=== PATIENT | female | born 1990 | race Caucasian/White ===

== ENCOUNTER 2023-03-21 11:29 | Observation (INO) | payer OTHER, SELFPAY ==
[2023-03-21 11:55] VITALS: TEMP 36.3
[2023-03-21 11:59] VITALS: BP 120/68; PULSE 106
[2023-03-21 12:01] VITALS: BP 122/63; PULSE 105
[2023-03-21 12:12] LABS: Appearance Urine Clear (Clear); Bacteria Urine Rare /hpf; Bilirubin Urine Negative (Negative); Blood Urine Negative (Negative); Color Urine Yellow (Yellow); Glucose Urine UA Negative (Negative); Ketones Urine Negative (Negative); Leukocyte Esterase Ur Trace LEU/UL (NEGATIVE); Nitrate Urine Negative (Negative); Non Pathogenic Casts 0-2; Protein Urine Negative (Negative); RBC Urine 0-2 /hpf (0-2); Specific Grav Ur 1.003 (1.001-1.035); Squamous Epithelial Cell Urine Moderate /hpf (Few); Urobilinogen Urine 0.2 mg/dL (<2.0); WBC Urine 0-5 /hpf (0-3)
[2023-03-21 12:15] LABS: Add Urine Microscopic? YES
--- NOTE | 2023-03-23 17:32 | P.PNOB_ITS ---
OB - Triage/Final Diagnosis Visit Information Reason for evaluation: threatened labor Comments/Additional reasons for admission: I have assessed the risk for this patient, Ayesha Sabillon, and determined that she would benefit from observation care. Evaluation Laboratory results: Laboratory Tests 03/21/23 11:55 Urine Color Yellow Urine Appearance Clear Urine pH 7.0 Ur Specific [place] 1.003 Urine Protein Negative Urine Glucose (UA) Negative Urine Ketones Negative Ur Blood (Man) Negative Urine Nitrate Negative Urine Bilirubin Negative Urine Urobilinogen 0.2 Ur Leukocyte Esterase Trace H Urine RBC 0-2 Urine WBC 0-5 Ur Squamous Epith Cells Moderate H Urine Bacteria Rare Urine Casts 0-2
== END 2023-03-21 12:34 | disposition home or self-care (01) ==
PROVIDERS: Admitting Provider Obstetrics & Gynecology; PCP Nurse Practitioner Family; Visit Provider Obstetrics & Gynecology
DX: O47.02 False labor before 37 completed weeks of gestation, second trimester (principal); O26.892 Other specified pregnancy related conditions, second trimester; R10.9 Unspecified abdominal pain; Z3A.19 19 weeks gestation of pregnancy
CPT/HCPCS: 81001; 87086; 87088; G0378; G0379

== ENCOUNTER 2023-05-24 11:06 | Outpatient (RCR) | payer OTHER, SELFPAY ==
[2023-05-24] MEDS: RHO(D) IMMUNE GLOBULIN 300 MCG/2 ML SYRINGE IM (13:40)
== END 2023-07-21 23:59 | disposition home or self-care (01) ==
LOC: ANHLAB 11:06
PROVIDERS: PCP Nurse Practitioner Family; Visit Provider Obstetrics & Gynecology
DX: Z34.90 Encounter for supervision of normal pregnancy, unspecified, unspecified trimester (principal)
CPT/HCPCS: 36415; 82310; 82570; 86900; 86901; 90384; 96372; J2790

== ENCOUNTER 2023-05-24 11:07 | Outpatient (CLI) | payer OTHER, SELFPAY ==
[2023-05-24 12:06] LABS: Basophils Percent Auto 0.2 % (0.2-1.2); Eosinophils Percent Auto 0.4 % (0-4.4); Hematocrit 32.3 % (37.0-47.0); Hemoglobin 9.7 g/dL (12.0-15.0); Immature Granulocyte Absolute 0.04 K/mm3 (0.00-0.031); Immature Granulocyte Percent A 0.4 % (0-0.5); Lymphocytes Absolute Auto 2.29 K/mm3 (0.9-3.2); Lymphocytes Percent Auto 20.6 % (18.3-44.2); Mean Corpuscular Hemoglobin 27.6 pg (26-34); Mean Corpuscular Volume 91.8 fl (80-100); Mean Platelet Volume 10.1 fl (7.4-10.4); Monocytes Absolute Auto 0.6 K/mm3 (0.1-0.6); Monocytes Percent Auto 4.9 % (2.6-8.5); Neutrophils Absolute Auto 8.2 K/mm3 (1.3-6.7); Neutrophils Percent Auto 73.5 % (45.5-73.1); Platelet Count Result 338 k/mm3 (150-375); Red Blood Count 3.52 M/mm3 (4.2-5.4); Red Cell Distribution Width 15.5 % (11.5-14.5); White Blood Count 11.1 K/mm3 (4.5-10.0)
[2023-05-24 12:48] LABS: Iron 51 ug/dL (37-170)
[2023-05-24 12:56] LABS: HIV 1/2 Ab P24 Ag Result Negative (Negative)
[2023-05-24 13:02] LABS: Percent Iron Saturation 10 % (20-50)
[2023-05-24 13:28] LABS: Glucose 1 Hour PP 50gm Dose 145 mg/dL
== END 2023-05-24 11:08 | disposition home or self-care (01) ==
LOC: ANHLAB 11:08
PROVIDERS: PCP Nurse Practitioner Family; Visit Provider Obstetrics & Gynecology
DX: O99.013 Anemia complicating pregnancy, third trimester (principal); Z3A.00 Weeks of gestation of pregnancy not specified
CPT/HCPCS: 36415; 82947; 83540; 83550; 85025; 85461; 86703; 86850; 86900; 86901; 90384; 96372; G0432; J2790

== ENCOUNTER 2023-06-04 08:03 | Outpatient (CLI) | payer OTHER, SELFPAY ==
[2023-06-04 08:59] LABS: Glucose Fasting Gestational 98 mg/dL (>/=95)
[2023-06-04 11:16] LABS: Glucose 1 Hour Gest 141 mg/dL (>/=180)
[2023-06-04 12:20] LABS: Glucose 2 Hour Gest 151 mg/dL (>/= 155)
[2023-06-04 12:43] LABS: Glucose 3 Hour Gest 141 mg/dL (>/=140)
== END 2023-06-04 08:04 | disposition home or self-care (01) ==
PROVIDERS: PCP Nurse Practitioner Family; Visit Provider Obstetrics & Gynecology
DX: R73.09 Other abnormal glucose (principal)
CPT/HCPCS: 36415; 82951; 82952

== ENCOUNTER 2023-07-07 16:31 | Observation (INO) | payer OTHER, SELFPAY ==
--- NOTE | ~2023-07-07 | US_ITS ---
EXAMINATION: US renal BI DATE: 07/07/2023 18:26 INDICATION: Back pain TECHNIQUE: Multiple grayscale and Doppler ultrasound images of the kidneys were obtained. COMPARISON: None. FINDINGS: The right kidney measures 12.8 x 5.8 x 5.9 cm. The left kidney measures 12.5 x 5.6 x 5.3 cm. The kidn eys demonstrate normal parenchymal echogenicity. Mild right caliectasis and pelviectasis. There is no hydronephrosis. The bladder appears grossly normal but is partially obscured by the fetus. Ureteral jets could not be detected. IMPRESSION: Mild right hydronephrosis. Reviewed, dictated and finalized at location K. IMPRESSION: Mild right hydronephrosis.
[2023-07-07 17:04] LABS: Appearance Urine Clear (Clear); Bilirubin Urine Negative (Negative); Blood Urine Negative (Negative); Color Urine Yellow (Yellow); Glucose Urine UA Negative (Negative); Ketones Urine Negative (Negative); Leukocyte Esterase Ur Negative LEU/UL (Negative); Nitrate Urine Negative (Negative); Protein Urine Negative (Negative); Urobilinogen Urine 0.2 mg/dL (<2.0); pH Urine 6.5 (5.0-9.0)
[2023-07-07 17:13] LABS: Add Urine Microscopic? NO
[2023-07-07 17:15] VITALS: BP 124/67; PULSE 105
--- NOTE | 2023-07-08 08:20 | P.PNOB_ITS ---
OB - Triage/Final Diagnosis Visit Information Date of evaluation: 07/07/23 Reason for evaluation: other (flank pain) Comments/Additional reasons for admission: I have assessed the risk for this patient, Ayesha Sabillon, and determined that she would benefit from observation care. Evaluation Laboratory results: Laboratory Tests 07/07/23 16:46 Urine Color Yellow Urine Appearance Clear Urine pH 6.5 Ur Specific [place] 1.010 Urine Protein Negative Urine Glucose (UA) Negative Urine Ketones Negative Ur Blood (Man) Negative Urine Nitrate Negative Urine Bilirubin Negative Urine Urobilinogen 0.2 Leukocyte Esterase Rfl Negative Vital signs: Vital Signs - 24 hr 07/07/23 17:15 Pulse Rate 105 H Blood Pressure 124/67
== END 2023-07-07 19:35 | disposition home or self-care (01) ==
PROVIDERS: Admitting Provider Student in an Organized Health Care Education/Training Program; PCP Nurse Practitioner Family; Visit Provider Student in an Organized Health Care Education/Training Program
DX: O26.893 Other specified pregnancy related conditions, third trimester (principal); R10.9 Unspecified abdominal pain; Z3A.35 35 weeks gestation of pregnancy
CPT/HCPCS: 76775; 81003; G0378; G0379

== ENCOUNTER 2023-07-13 09:31 | Outpatient (RCR) | payer OTHER, SELFPAY | END 2023-09-27 10:52 | disposition home or self-care (01) | LOC: ANHDMC 09:31 | PROVIDERS: PCP Nurse Practitioner Family; Visit Provider Obstetrics & Gynecology | DX: O24.419 Gestational diabetes mellitus in pregnancy, unspecified control (principal); Z71.89 Other specified counseling; Z71.3 Dietary counseling and surveillance | CPT/HCPCS: 97802; G0108 ==

== ENCOUNTER 2023-07-30 08:59 | Outpatient (RCR) | payer OTHER, SELFPAY ==
[2023-06-19 11:07] VITALS: BP 105/57; PULSE 103
[2023-06-25 09:02] VITALS: BP 110/58; PULSE 106
[2023-07-02 09:15] VITALS: BP 122/65; PULSE 108
[2023-07-16 09:05] VITALS: BP 114/66; PULSE 103
[2023-07-23 12:08] VITALS: BP 111/76; PULSE 104
[2023-07-30 09:31] VITALS: BP 113/65; PULSE 101
[2023-07-30 09:46] VITALS: BP 111/68; PULSE 98
[2023-07-30 10:16] VITALS: BP 116/64; PULSE 101
== END 2023-09-17 23:59 | disposition home or self-care (01) ==
LOC: ANHOBOP 08:59
PROVIDERS: PCP Nurse Practitioner Family; Visit Provider Obstetrics & Gynecology
DX: O24.419 Gestational diabetes mellitus in pregnancy, unspecified control (principal); Z3A.32 32 weeks gestation of pregnancy; Z3A.33 33 weeks gestation of pregnancy; Z3A.34 34 weeks gestation of pregnancy; Z3A.36 36 weeks gestation of pregnancy; Z3A.37 37 weeks gestation of pregnancy
CPT/HCPCS: 59025

== ENCOUNTER 2023-08-05 05:23 | Inpatient (IN) | payer OTHER, SELFPAY ==
[2023-08-05] VITALS (54 sets, daily range): BP systolic 111–143; BP diastolic 56–87; PULSE 77–147; RESP 12–32; TEMP 36.8–36.9; O2SAT 97–100; BMI 48.0
[2023-08-05 06:06] LABS: Basophils Percent Auto 0.2 % (0.2-1.2); Eosinophils Absolute Auto 0.1 K/mm3 (0-0.3); Eosinophils Percent Auto 0.5 % (0-4.4); Hematocrit 32.1 % (37.0-47.0); Immature Granulocyte Absolute 0.04 K/mm3 (0.00-0.031); Immature Granulocyte Percent A 0.4 % (0-0.5); Lymphocytes Absolute Auto 3.56 K/mm3 (0.9-3.2); Lymphocytes Percent Auto 32.2 % (18.3-44.2); Mean Corpuscular HGB Conc 31.2 g/dl (32-36); Mean Corpuscular Hemoglobin 27.5 pg (26-34); Mean Corpuscular Volume 88.2 fl (80-100); Mean Platelet Volume 10.9 fl (7.4-10.4); Monocytes Absolute Auto 0.6 K/mm3 (0.1-0.6); Monocytes Percent Auto 5.3 % (2.6-8.5); Neutrophils Absolute Auto 6.8 K/mm3 (1.3-6.7); Neutrophils Percent Auto 61.4 % (45.5-73.1); Nucleated Red Blood Cells Perc 0.2 % (0.0-0.2); Platelet Count Result 310 k/mm3 (150-375); Red Blood Count 3.64 M/mm3 (4.2-5.4); Red Cell Distribution Width 17.2 % (11.5-14.5)
[2023-08-05] MEDS: LACTATED RINGERS 1,000 ML 125 ML IV CONT ×2 (06:26→07:11)
--- NOTE | 2023-08-05 06:30 | LDADM ---
This patient, Ayesha Sabillon, was admitted to Labor/Delivery/Recovery 120 on 08/05/23 at 05:23. Plans for labor, pain management and were discussed with patient. Patient/family oriented to hospital policies and general routines including ID bracelet, bed and alarms, visiting hours, pain management, procedures, bathroom and other care routines, personal items, smoking policy, room service/diet and guest tray routines, infant security routines, and visiting hours. Patient/Family are encouraged to report perceived risks to care and to ask questions if they do not understand what they are told or what they should do. See OBIX for further documentation.
--- NOTE | 2023-08-05 06:57 | WPDANESEPPF ---
Anes - Initial Pre Proc Eval Procedure: Operation Date: 08/05/23 07:30 Proposed Procedures p Section - Maya Staley MD Date/Time: 08/05/23 06:57 Surgeon: Maya Staley MD Pre Op Diagnosis: C/S Patient Data Age: 32 Gender: F Height: 1.6 m Weight: 123 kg Last Vital Signs Pulse 92 08/05/23 06:46 BP 129/82 08/05/23 06:46 O2 Del Method Room Air 08/05/23 06:28 Allergies Allergy/AdvReac Type Severity Reaction Status Date / Time clavulanic acid Allergy Intermediate Rash Verified 08/04/23 08:45 [From Augmentin] Home Medications Medication Instructions Recorded Confirmed Type magnesium glycinate 100 mg tablet 200 mg PO HS 06/25/23 07/21/23 History vit no.95-ferrous 1 tablet PO DAILY 06/25/23 07/21/23 History fumarate 28 mg-folic acid 800 mcg tablet () insulin glargine 100 unit/mL (3 16 unit subcut QAM 07/02/23 07/21/23 History mL) subcutaneous pen (Lantus Solostar U-100 Insulin) hydroxyzine pamoate 25 mg capsule 25 mg PO HS #30 caps 07/12/23 07/21/23 Rx insulin glargine 100 unit/mL (3 24 unit (0.24 mL) subcut QPM #15 mL 07/16/23 07/21/23 Rx mL) subcutaneous pen insulin lispro 100 unit/mL 1 sliding scale dose subcut 07/28/23 History subcutaneous pen USEASDIRECTD Laboratory Tests 08/05/23 05:57 WBC 11.0 H K/mm3 (4.5-10.0) RBC 3.64 L M/mm3 (4.2-5.4) Hgb 10.0 L g/dL (12.0-15.0) Hct 32.1 L % (37.0-47.0) MCV 88.2 fl (80-100) MCH 27.5 pg (26-34) MCHC 31.2 L g/dl (32-36) RDW 17.2 H % (11.5-14.5) Plt Count 310 k/mm3 (150-375) MPV 10.9 H fl (7.4-10.4) Immature Gran % (Auto) 0.4 % (0-0.5) Neut % (Auto) 61.4 % (45.5-73.1) Lymph % (Auto) 32.2 % (18.3-44.2) [place] % (Auto) 5.3 % (2.6-8.5) Eos % (Auto) 0.5 % (0-4.4) Baso % (Auto) 0.2 % (0.2-1.2) Lymph # (Auto) 3.56 H K/mm3 (0.9-3.2) [place] # (Auto) 0.6 K/mm3 (0.1-0.6) Eos # (Auto) 0.1 K/mm3 (0-0.3) Baso # (Auto) 0.0 K/mm3 (0.0-0.1) Abs Immat Gran (auto) 0.04 H K/mm3 (0.00-0.031) Absolute Neuts (auto) 6.8 H K/mm3 (1.3-6.7) Absolute Nucleated RBC 0.0 K/mm3 (0.0-0.012) Nucleated RBC % 0.2 % (0.0-0.2) RPR Pending Blood Type O Negative Antibody Screen Pending Patient hx anesthesia problems: none Family hx anesthesia problems: none Results Review: All pre-operative results and documents have been reviewed as part of the pre-operative evaluation. [facility] Past Medical History Medical History Anxiety and depression Dizziness GERD (gastroesophageal reflux disease) History of miscarriage, currently Insomnia UTI (urinary tract infection) Surgical History Surgical History History of tonsillectomy and adenoidectomy (~1995) Hx of cholecystectomy (~08/2022) Family History Family History Mother Anxiety Cyst of ovary Grandparent Diabetes mellitus paternal grandmother Heart disease paternal grandfather paternal grandmother maternal grandmother maternal grandfather Cerebrovascular accident maternal grandfather Other Diabetes mellitus paternal uncles x3 Social History Social History Smoking status: Never smoker Alcohol intake: never Substance use: never Substance use type: marijuana Last use: 12/10/2022 Lack of Transportation: No Lack of Food: Never True Current Housing: I Have Housing Concerned About Future Housing: No Difficulty Paying Gas/Electric Bills: No Difficulty Paying for Meds: No Currently Unemployed: No Education: Bachelor's Degree Difficulty w/ Childcare or Family Care: No Living arrangements: ot
--- NOTE | 2023-08-05 07:04 | PM.IMHP ---
H&P: HPI History of Present Illness Date/Time: 08/05/23 07:04 Chief Complaint: scheduled primary LTCS Narrative: Ayesha is a 32yo @ 38.6 who presents to L&D for pLTCS due to uncontrolled A2GDM and LGA fetus with AC >99%ile. She is on insulin 20/24 long acting, 4u TID before meals short acting. Her sugars have been uncontrolled the last week with values as high as 200. She has been seeing M and undergoing testing. Her is complicated by: - Obesity; BMI 46 - Rh negative s/p rhogam - Anemia; taking PO iron - A2GDM; uncontrolled on insulin - LGA with AC >99%ile - GBS positive in urine Review of Systems Constitutional: Constitutional: Denies chills, Denies fever(s) and Denies headache(s) Eyes: Eyes: Denies change in vision ENT: Denies headache(s) Cardiovascular: Cardiovascular: Denies chest pain and Denies dyspnea Respiratory: Respiratory: Denies dyspnea Genitourinary: Genitourinary: Denies abnormal vaginal bleeding and Denies vaginal discharge Neurologic: Denies headache(s) Psychiatric: Psychiatric: Denies anxiety and Denies depression PMF Past Medical History Medical History Anxiety and depression Dizziness GERD (gastroesophageal reflux disease) History of miscarriage, currently Insomnia UTI (urinary tract infection) Surgical History Surgical History History of tonsillectomy and adenoidectomy (~1995) Hx of cholecystectomy (~08/2022) Family History Family History Mother Anxiety Cyst of ovary Grandparent Diabetes mellitus paternal grandmother Heart disease paternal grandfather paternal grandmother maternal grandmother maternal grandfather Cerebrovascular accident maternal grandfather Other Diabetes mellitus paternal uncles x3 Social History Social History Smoking status: Never smoker Alcohol intake: never Substance use: never Substance use type: marijuana Last use: 12/10/2022 Lack of Transportation: No Lack of Food: Never True Current Housing: I Have Housing Concerned About Future Housing: No Difficulty Paying Gas/Electric Bills: No Difficulty Paying for Meds: No Currently Unemployed: No Education: Bachelor's Degree Difficulty w/ Childcare or Family Care: No Living arrangements: other Additional living arrangements comments: Occupation/Education: occupation 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 Gender identity (if verbalized by the patient): Female Sexual Orientation (if Verbalized by the Patient): Straight or Heterosexual Spiritual care concerns: No Meds Home Medications and Allergies Home Medications Medication Instructions Recorded Confirmed Type magnesium glycinate 100 mg tablet 200 mg PO HS 06/25/23 07/21/23 History vit no.95-ferrous 1 tablet PO DAILY 06/25/23 07/21/23 History fumarate 28 mg-folic acid 800 mcg tablet () insulin glargine 100 unit/mL (3 16 unit subcut QAM 07/02/23 07/21/23 History mL) subcutaneous pen (Lantus Solostar U-100 Insulin) hydroxyzine pamoate 25 mg capsule 25 mg PO HS #30 caps 07/12/23 07/21/23 Rx insulin glargine 100 unit/mL (3 24 unit (0.24 mL) subcut QPM #15 mL 07/16/23 07/21/23 Rx mL) subcutaneous pen insulin lispro 100 unit/mL 1 sliding scale dose subcut 07/28/23 History subcutaneous pen USEASDIRECTD Allergies Allergy/AdvReac Type Severity Reaction Status Date / Time clavulanic acid Allergy Intermediate Rash Verified 08/04/23 08:45 [From Augmentin] Vital Signs Vital Signs - 24 hr 08/05/23 06:16 08/05/23 06:46 08/05/23 07:01 Pulse Rate 96 92 92 Blood Pressure 120/68 129/82 125/73 Oxygen Delivery
--- NOTE | 2023-08-05 07:14 | WPDHPUPDATE1 ---
History and Physical Update Update Date/Time: 08/05/23 07:14 History and Physical has been reviewed, including an updated exam of the patient. There are NO changes in the patient's condition. Risks, benefits, and alternatives have been discussed and questions answered. Patient agrees to proceed with procedure.
[2023-08-05] MEDS: ceFAZolin 3 GM/D5W 100 ML 100 ML IVPB (07:52)
[2023-08-05 08:35] LABS: Rapid Plasma Reagin Non-Reactive (NonReactive)
--- NOTE | 2023-08-05 08:50 | P.PCNOB_ITS ---
OB - Delivery Note Procedure Delivery date: 08/05/23 Procedure: Procedures Operation Date: 08/05/23 07:30 Actual Procedure Side Surgeon p Section Maya Staley MD Events: Gestational Diabetes (uncontrolled/ LGA fetus) Route of delivery: Prior to decision for section, ACOG/SM labor guidelines were considered and discussed with the patient and staff. Decision made to proceed with the section.: Yes Specimen: Yes (placenta) Quantitative Blood Loss (ml): 850 Anesthesia type: Spinal Disposition: Floor Baby Date of : 08/05/23 Time of : 08:14 Weeks of gestation at delivery: 38 (.6) gender: Female Weight (pounds): 9 Weight (ounces): 7 presentation: vertex Placenta delivery description: Expressed Cord Vessel Description: 3 Vessels and Delayed Cord Clamping score one minute: 8 score five minutes: 9 Narrative: She was counseled on all risks and benefits in detail. She was taken to the operating room where spinal was placed. She was then prepped and draped in the normal sterile fashion. She received 2g Ancef and a time out was performed. A Pfannenstiel incision was made in the skin and carried down to the underlying fascia. The fascia was nicked on either side of the midline and the fascial incision was extended laterally and superiorly using curved Guerra scissors. The fascia was then elevated using Ashly clamps and the underlying rectus muscles were dissected off the fascia, superiorly and inferiorly. The rectus muscles were then in the midline and a large vein from the omentum was noted and doubly tied off with 0-Vicryl stitches. The peritoneum was entered bluntly. Once adequate exposure was obtained, a Mobius self retractor was placed within the abdomen. A bladder flap was created. A low transverse incision was made on the lower uterine segment and clear fluid was noted. The occiput was brought to the hysterotomy and the head was easily delivered. The shoulders and body then followed without complications. The infant had spontaneous cry and the mouth and nose were bulb suctioned. Delayed cord clamping was performed but then was doubly clamped and cut and the was handed off to the awaiting pediatric nurse. A segment of the cord was collected for cord gases. The remaining cord blood was collected for typing. With pitocin infusing, the placenta delivered with gentle traction on the cord without complications. The uterus was then cleared out of all clots and debris using a clean, moist lap. The hysterotomy was then repaired in a running, interlocking fashion using 0 Vicryl. A second layer imbricating suture was then made using 0 Vicryl. The hysterotomy was found to be hemostatic and good uterine tone was noted. The bilateral adnexa were examined and found to be normal. The pelvis was cleared of all clots and fluid. The Mobius retractor was removed from the abdomen. The peritoneum, muscle, and fascia were examined and made hemostatic with bovie cautery. The fascia was then repaired using a 0 Vicryl suture in a running fashion. The subcutaneous tissue was then irrigated and made hemostatic with bovie cautery. The subcutaneous tissue was then reapproximated using 2-0 Vicryl. The skin was then closed using 4-0 Monocryl in a running subcuticular fashion. A Seymour dressing was placed over the incision. Sponge, lap, needle and instrument counts were correct at the end of the procedure x2. The patient tolerated the procedure well and was taken to recovery in a stable condition. [facility] [place]
[2023-08-05] MEDS: OXYTOCIN 30 UNITS/NS 500 ML 30 UNITS/500 ML BAG 125 UNITS IV CONT (09:22)
[2023-08-05] MEDS: ONDANSETRON INJ 4 MG/2 ML VIAL IV PUSH (09:56)
[2023-08-05] MEDS: MORPHINE SULFATE INJ (*CRX) 10 MG/ML AMP 3 MG IV PUSH (10:27)
[2023-08-05] MEDS: KETOROLAC 30 MG/ML VIAL (*BKC) 15 MG IV PUSH (10:29)
[2023-08-05 13:22] LABS: Glucose Point of Care 85 mg/dl (65-105)
--- NOTE | 2023-08-05 13:33 | PC.NURSE ---
[id number] Introductions were made, then consulted with patient to assess needs related to . Mother led the conversation with her?plans to feed?her infant, the?experience so far and states latched well downstairs. Discussed with parents the different wake, sleep and feeding challenges along with inconsistent feedings the first 24 hours. was assessed for sounds with breathing with no nasal flaring. spit up copious amounts of clearing fluid and placed upright on mothers chest. Education was discussed regarding stimulating with changing positioning, massage touch encouraging to wake and breastfeed. RN wiped clearing fluid away from infants mouth and massaged touched and burped again. Encouraged parents to call for assistance when needed. Educated parents on protecting mothers milk supply with hand stimulation/expression/nipple stretching or pumping if infant doesn't breastfeed frequently. Resources provided for inpatient and outpatient services with the feeding sheet, mom/baby guide and name written on the white board. Parents voiced understanding of information, will call if there is a request for assistance if infant shows feeding cues, doesn't latch or there's pain with latching. Reported to the primary RN.
[2023-08-05] MEDS: KETOROLAC 30 MG/ML VIAL (*BKC) IV PUSH ×2 (14:15→21:45)
[2023-08-05] MEDS: DEXTROSE 5%/0.45% SOD CHL 1,000 ML 125 ML IV CONT ×2 (14:15→22:00)
[2023-08-05] MEDS: SCOPOLAMINE 1.5 MG PATCH TRANSDERM (14:15)
--- NOTE | 2023-08-05 15:44 | PC.NURSE ---
[id number] Purposefully rounded to assess for . Visitors remain present in the room. Infant is not showing any feeding cues or interest in waking to eat at this time. Revisited the education regarding protecting her milk supply. Breast pump provided due to ineffective feeding. Instructions given on cleaning, care, usage, that there should be no pain, pumping schedule for milk production, collection, and storage of human milk. Parents are encouraged to record pumping schedule on the feeding sheet. Patient was assessed for correct placement, flange size (27mm), to pump for comfort and nipple stretching/stimulation for adequate milk production every 3 hours (8-10 times in 24 hours) 1-2 times at night. Education regarding the delay in milk related to primary section and PCOS. Mother voiced understanding of the education shared along with mom and baby guide for additional resource information. Reported to the primary RN.
[2023-08-05] MEDS: HYDROcodone/acetaminophen (*CRX) 5-325 MG TABLET 1 TAB PO (21:45)
[2023-08-06 04:35] VITALS: BP 116/68; PULSE 99; RESP 16; TEMP 36.6; O2SAT 99
[2023-08-06 04:54] LABS: Glucose Point of Care 79 mg/dl (65-105)
[2023-08-06] MEDS: IBUPROFEN 600 MG TABLET PO ×3 (05:47→18:34)
[2023-08-06] MEDS: HYDROcodone/acetaminophen (*CRX) 5-325 MG TABLET 1 TAB PO ×4 (05:47→18:34)
[2023-08-06 05:53] LABS: Basophils Percent Auto 0.3 % (0.2-1.2); Eosinophils Percent Auto 0.3 % (0-4.4); Hematocrit 26.2 % (37.0-47.0); Hemoglobin 7.8 g/dL (12.0-15.0); Immature Granulocyte Absolute 0.05 K/mm3 (0.00-0.031); Immature Granulocyte Percent A 0.5 % (0-0.5); Lymphocytes Absolute Auto 2.27 K/mm3 (0.9-3.2); Lymphocytes Percent Auto 20.7 % (18.3-44.2); Mean Corpuscular HGB Conc 29.8 g/dl (32-36); Mean Corpuscular Hemoglobin 27.6 pg (26-34); Mean Corpuscular Volume 92.6 fl (80-100); Mean Platelet Volume 11.3 fl (7.4-10.4); Monocytes Absolute Auto 0.7 K/mm3 (0.1-0.6); Neutrophils Absolute Auto 7.9 K/mm3 (1.3-6.7); Neutrophils Percent Auto 72.2 % (45.5-73.1); Platelet Count Result 254 k/mm3 (150-375); Red Blood Count 2.83 M/mm3 (4.2-5.4); Red Cell Distribution Width 17.3 % (11.5-14.5)
[2023-08-06 06:57] LABS: Platelet Estimate Adequate (Adequate)
[2023-08-06 06:58] LABS: Anisocytosis 1+ (NORMAL); Hypochromasia 1+ (NORMAL); Ovalocytes 1+ (NORMAL); Schistocytes None Seen (NORMAL)
--- NOTE | 2023-08-06 07:31 | WPDANLDPN2 ---
Anes-Prog Note L&D Date/Time: 08/06/23 07:31 Comfortable throughout: section Neuraxial method: spinal Epidural/Spinal procedure site: clean & non-tender Neuro status: Neuro function grossly intact. Cardiovascular status: normal Respiratory status: normal Airway patency: baseline Mental status: baseline Post-Op hydration status: normal Vital Signs: Last Vital Signs Temp 36.6 C 08/06/23 04:35 Pulse 99 08/06/23 04:35 Resp 16 08/06/23 04:35 BP 116/68 08/06/23 04:35 Pulse Ox 99 08/06/23 04:35 O2 Del Method Room Air 08/05/23 19:10 Pain score (VAS): no complaints I/O: Intake & Output 08/05/23 08/05/23 08/06/23 15:59 23:59 07:59 Intake Total 250 2150 400 Output Total 806 080 4636 Balance 37 1550 -800 Post-procedural complaints: none Patient feedback: Patient satisfied with anesthetic care.
--- NOTE | 2023-08-06 07:31 | WPDANLDNPN2 ---
Anes-Prog Note L&D-Neuraxial Date/Time: 08/06/23 07:31 Neuraxial medications: intrathecal PF morphine Opiod-related complaints: none Patient feedback: Patient satisfied with post-operative pain management.
[2023-08-06 07:45] VITALS: BP 111/65; PULSE 86; RESP 18; TEMP 37.2; O2SAT 97
--- NOTE | 2023-08-06 08:56 | PM.OBPNVD ---
OB - PN: Subj Subjective Date/time seen: 08/06/23 08:56 Narrative: POD#1 Ayesha reports doing well today. 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 Her pain is controlled. She is tolerating regular diet, voiding, passing gas, and ambulating without issues. She denies any issues with her incision. She is breast feeding. OB - PN: Obj Data Labs 08/06/23 04:50 Labs: Laboratory Results - last 24 hr 08/05/23 08/06/23 08/06/23 06:02 04:42 04:50 WBC 11.0 H RBC 2.83 L Hgb 7.8 L Hct 26.2 L MCV 92.6 MCH 27.6 MCHC 29.8 L RDW 17.3 H Plt Count 254 MPV 11.3 H Immature Gran % (Auto) 0.5 Neut % (Auto) 72.2 Lymph % (Auto) 20.7 [place] % (Auto) 6.0 Eos % (Auto) 0.3 Baso % (Auto) 0.3 Lymph # (Auto) 2.27 [place] # (Auto) 0.7 H Eos # (Auto) 0.0 Baso # (Auto) 0.0 Abs Immat Gran (auto) 0.05 H Absolute Neuts (auto) 7.9 H Absolute Nucleated RBC 0.0 Nucleated RBC % 0.0 Platelet Estimate Adequate Hypochromasia 1+ Anisocytosis 1+ Ovalocytes 1+ Schistocytes None seen POC Capillary Glucose 85 79 Blood Type O Negative Antibody Screen Negative Baby's Blood Type O pos Baby's JESSI Negative Doses of RhIg Required 1 OB - PN A/P Assessment and Plan (1) S/P primary low transverse : Code(s): Z98.891 - History of uterine scar from previous surgery Status: Acute (2) Gestational diabetes requiring insulin: Code(s): O24.414 - Gestational diabetes mellitus in , insulin controlled Status: Acute (3) LGA (large for gestational age) fetus affecting management of mother: Qualifiers: Fetus number: single or unspecified fetus Trimester: third trimester Qualified Code(s): O36.63X0 - Maternal care for excessive growth, third trimester, not applicable or unspecified Code(s): O36.60X0 - Maternal care for excessive growth, unspecified trimester, not applicable or unspecified Status: Acute Plan day: 1 Plan: routine care Comments: - pain control - hydration/ambulation - keep pumping/putting baby to breast Time Spent With Patient Time: Total time spent is greater than 50% in coordination of care (as documented) at patient's floor/unit and/or counseling patient: Review of Systems Constitutional: Constitutional: Denies chills, Denies fever(s) and Denies headache(s) Eyes: Eyes: Denies change in vision ENT: Denies dizziness and Denies headache(s) Cardiovascular: Cardiovascular: Denies chest pain, Denies palpitations and Denies dyspnea Respiratory: Respiratory: Denies cough and Denies dyspnea Gastrointestinal: Gastrointestinal: Denies nausea and Denies vomiting Genitourinary: Comments: normal bleeding Neurologic: Denies dizziness and Denies headache(s) Endocrine: Endocrine: Denies palpitations Exam Const: General: cooperative, comfortable, no acute distress and obese Orientation/consciousness: patient oriented x3 Resp: Effort & Inspection: normal respiratory effort Auscultation: clear to auscultation bilaterally Cardio: Rate: regular rate GI: Inspection: non-distended and incision (covered with clean TORY dressing) GI Palp: Yes abdominal tenderness (appropriate) and Yes Soft to palpation Auscultation: normal bowel sounds : Other: fundus firm Skin: General skin exam: normal color Neuro: General: patient oriented x3 Extrem: General: normal to inspection Psych: Appearance: grossly normal Affect: normal affect Attitude: cooperative
[2023-08-06] MEDS: MULTIVIT/MIN/PREN/FOL AC/IRON TABLET 1 TAB PO (09:35)
[2023-08-06] MEDS: POLYSACCHARIDE IRON COMPLEX 150 MG CAPSULE PO ×2 (09:35)
[2023-08-06] MEDS: DOCUSATE SODIUM 100 MG CAPSULE PO ×2 (09:35→17:19)
[2023-08-06] MEDS: IRON SUCROSE COMPLEX 500 MG in SODIUM CHLORIDE 0.9% IV 250 ML 78.57 MG IVPB (11:10)
[2023-08-06] MEDS: SODIUM CHLORIDE 0.9% IV 100 ML 50 ML (13:30)
--- NOTE | 2023-08-06 14:20 | PC.NURSE ---
[id number] Purposefully rounded to assess needs. Mother led the conversation with her experience, plan to feed her so far and her ability feed her . Reminded parents to use good handwashing technique to prevent infection. Mother is feeding appropriately for growth of infant and understands stimulating to eat if needed. has had appropriate feedings in the last 24 hours meets the outcomes for weight, output and jaundice at this time. Mother plans to pump her breast to protect her milk supply and formula supplement since is not latching. Mother is satisfied with that plan at this time. Mother voiced understanding of the education shared along with resources of how to contact for support or contacting the ICP using the mom/baby guide.
[2023-08-06] MEDS: RHO(D) IMMUNE GLOBULIN 300 MCG/2 ML SYRINGE IM (16:20)
[2023-08-06 16:30] VITALS: BP 114/68; PULSE 74; PULSE 86; RESP 16; RESP 18; TEMP 37.1; O2SAT 97
[2023-08-06 19:20] VITALS: BP 135/80; PULSE 95; RESP 18; TEMP 37.1; O2SAT 98
[2023-08-06] MEDS: HYDROcodone/acetaminophen (*CRX) 10-325 MG TABLET 1 TAB PO (23:43)
[2023-08-07] MEDS: HYDROcodone/acetaminophen (*CRX) 5-325 MG TABLET 1 TAB PO ×3 (05:23→14:03)
[2023-08-07] MEDS: IBUPROFEN 600 MG TABLET PO ×2 (05:24→14:02)
--- NOTE | 2023-08-07 07:23 | PM.OBDSVD ---
DS: Admitting Diagnosis Discharge Date 08/07/2023 Admitting Diagnosis DS: Discharge Diagnosis Discharge Diagnosis (1) , delivered: Code(s): O80 - Encounter for full-term uncomplicated delivery Status: Acute (2) S/P primary low transverse : Code(s): Z98.891 - History of uterine scar from previous surgery Status: Acute OB - DS: Summary OB Procedures : None OB Procedures Intrapartum: OB Procedures: : None Peripartum Data Procedures: Procedures Operation Date: 08/05/23 07:30 Actual Procedure Side Surgeon p Section Bilateral Maya Staley MD Time Spent with Patient Time attestation: Total time spent providing and/or coordinating discharge services: DS: Data Data Completed and Pending Pending studies at discharge: Pending at discharge 08/05/23 08:15 Surgical [PTH] Routine Labs on day of discharge: Labs from last 24 hours 08/06/23 04:50 Blood Type O Negative Antibody Screen Negative Screen Negative Baby's Blood Type O pos Baby's JESSI Negative Doses of RhIg Required 1 Discharge Plan Discharge Attending physician on discharge: Maya Staley Discharging Clinician: Alon Pearson Patient Disposition: Home, Self-Care Activity: no driving, may drive after 2 weeks and pelvic rest Diet: regular Wound Care Instructions: follow printed instructions Patient Instructions: (DC) Stand Alone Forms: General Discharge Information Follow-up/Referrals: Maya Staley MD [Physician] - 1 Week Discharge Medications: New acetaminophen [Mapap (acetaminophen)] 325 mg Tablet 650 mg PO Q6H PRN (Reason: Mild Pain (1-3)) Qty: 60 0RF hydrocodone-acetaminophen 5-325 mg Tablet 1 tablet PO Q3H PRN (Reason: Moderate Pain (4-6)) Qty: 24 0RF docusate sodium 100 mg Capsule 100 mg PO BID Qty: 120 0RF ibuprofen 600 mg Tablet 600 mg PO Q6H PRN (Reason: Cramping) Qty: 40 0RF polysaccharide iron complex 150 mg iron Capsule 150 mg PO BIDWM Qty: 120 0RF Continued magnesium glycinate 100 mg Tablet 200 mg PO HS PNV cmb#95-ferrous fumarate-FA [] 28 mg iron- 800 mcg Tablet 1 tablet PO DAILY hydroxyzine pamoate 25 mg capsule 25 mg PO HS Qty: 30 0RF Rx Instructions: TAKE 1 CAPSULE BY MOUTH EVERY DAY AT BEDTIME Discontinued insulin lispro 100 unit/mL insulin pen 1 sliding scale dose subcut USEASDIRECTD insulin glargine [Lantus Solostar U-100 Insulin] 100 unit/mL (3 mL) insulin pen 16 unit subcut QAM insulin glargine 100 unit/mL (3 mL) insulin pen 24 unit subcut QPM Qty: 15 3RF Date of admission: 08/05/23 05:23 Primary Care Provider: Jabari,Kim Horn Admitting Provider: Maya Staley Attending physician on admission: Maya Staley Condition: Stable
[2023-08-07] MEDS: SIMETHICONE 80 MG TAB.CHEW PO ×2 (08:39→14:02)
[2023-08-07 08:40] VITALS: BP 136/72; PULSE 102; RESP 16; TEMP 36.8; O2SAT 98
[2023-08-07] MEDS: DOCUSATE SODIUM 100 MG CAPSULE PO (08:40)
[2023-08-07] MEDS: POLYSACCHARIDE IRON COMPLEX 150 MG CAPSULE PO (08:40)
[2023-08-07] MEDS: MULTIVIT/MIN/PREN/FOL AC/IRON TABLET 1 TAB PO (08:41)
[2023-08-09 08:52] VITALS: BP 124/86; PULSE 97; RESP 20; TEMP 37.2; O2SAT 98
== END 2023-08-07 16:10 | disposition home or self-care (01) | DRG 788 ==
LOC: ANHOB2 08-07 13:28 → ANHLDR 08-10 08:48 → ANHOB2 08-10 08:48
PROVIDERS: Admitting Provider Obstetrics & Gynecology; PCP Nurse Practitioner Family; Visit Provider Obstetrics & Gynecology
PROC: 10D00Z1 Extraction of Products of Conception, Low, Open Approach (ICD-10-PCS; CPT 59514; principal; 2023-08-05 07:30)
DX: O24.424 Gestational diabetes mellitus in childbirth, insulin controlled (principal); Z37.0 Single live birth; Z3A.38 38 weeks gestation of pregnancy; O99.824 Streptococcus B carrier state complicating childbirth; O36.63X0 Maternal care for excessive fetal growth, third trimester, not applicable or unspecified; O99.214 Obesity complicating childbirth; E66.01 Morbid (severe) obesity due to excess calories; O99.02 Anemia complicating childbirth; D64.9 Anemia, unspecified; O26.893 Other specified pregnancy related conditions, third trimester; Z67.91 Unspecified blood type, Rh negative
CPT/HCPCS: 36415; 82948; 85025; 85461; 86592; 86850; 86900; 86901; 88307; 90384; A9270; J0690; J1756; J1885; J2270; J2274; J2371; J2405; J2590; J2790; J7050; J7120

== ENCOUNTER 2023-11-30 08:07 | Outpatient (CLI) | payer OTHER, SELFPAY ==
[2023-11-30 08:38] LABS: Basophils Percent Auto 0.3 % (0.2-1.2); Eosinophils Absolute Auto 0.1 K/mm3 (0-0.3); Eosinophils Percent Auto 0.8 % (0-4.4); Hematocrit 41.3 % (37.0-47.0); Hemoglobin 13.1 g/dL (12.0-15.0); Immature Granulocyte Absolute 0.02 K/mm3 (0.00-0.031); Immature Granulocyte Percent A 0.3 % (0-0.5); Lymphocytes Absolute Auto 2.93 K/mm3 (0.9-3.2); Lymphocytes Percent Auto 41.3 % (18.3-44.2); Mean Corpuscular HGB Conc 31.7 g/dl (32-36); Mean Corpuscular Hemoglobin 28.3 pg (26-34); Mean Corpuscular Volume 89.2 fl (80-100); Mean Platelet Volume 10.1 fl (7.4-10.4); Monocytes Absolute Auto 0.3 K/mm3 (0.1-0.6); Monocytes Percent Auto 4.2 % (2.6-8.5); Neutrophils Absolute Auto 3.8 K/mm3 (1.3-6.7); Neutrophils Percent Auto 53.1 % (45.5-73.1); Platelet Count Result 293 k/mm3 (150-375); Red Blood Count 4.63 M/mm3 (4.2-5.4); Red Cell Distribution Width 15.3 % (11.5-14.5); White Blood Count 7.1 K/mm3 (4.5-10.0)
[2023-11-30 08:56] LABS: Iron 37 ug/dL (37-170)
[2023-11-30 09:14] LABS: Percent Iron Saturation 10 % (20-50)
== END 2023-11-30 08:08 | disposition home or self-care (01) ==
LOC: ANHLAB 08:09
PROVIDERS: PCP Nurse Practitioner Family; Visit Provider Obstetrics & Gynecology
DX: N93.9 Abnormal uterine and vaginal bleeding, unspecified (principal)
CPT/HCPCS: 36415; 82728; 83540; 83550; 85025

== ENCOUNTER 2024-01-06 08:15 | Outpatient (CLI) | payer OTHER, SELFPAY ==
[2024-01-06 19:11] LABS: Basophils Percent Auto 0.3 % (0.2-1.2); Eosinophils Percent Auto 0.6 % (0-4.4); Hematocrit 42.8 % (37.0-47.0); Hemoglobin 12.9 g/dL (12.0-15.0); Immature Granulocyte Absolute 0.02 K/mm3 (0.00-0.031); Immature Granulocyte Percent A 0.3 % (0-0.5); Lymphocytes Absolute Auto 2.62 K/mm3 (0.9-3.2); Lymphocytes Percent Auto 36.3 % (18.3-44.2); Mean Corpuscular HGB Conc 30.1 g/dl (32-36); Mean Corpuscular Hemoglobin 27.8 pg (26-34); Mean Corpuscular Volume 92.2 fl (80-100); Mean Platelet Volume 10.5 fl (7.4-10.4); Monocytes Absolute Auto 0.4 K/mm3 (0.1-0.6); Monocytes Percent Auto 5.1 % (2.6-8.5); Neutrophils Absolute Auto 4.1 K/mm3 (1.3-6.7); Neutrophils Percent Auto 57.4 % (45.5-73.1); Platelet Count Result 323 k/mm3 (150-375); Red Blood Count 4.64 M/mm3 (4.2-5.4); Red Cell Distribution Width 14.8 % (11.5-14.5); White Blood Count 7.2 K/mm3 (4.5-10.0)
[2024-01-06 19:15] LABS: Alanine Aminotransferase 19 U/L (6-35); Alkaline Phosphatase 108 U/L (38-126); Anion Gap 8 mmol/L (8-16); Aspartate Amino Transferase 48 U/L (14-36); Bilirubin,Total 0.4 mg/dL (0.2-1.3); Blood Urea Nitrogen 11 mg/dL (7-17); Calcium 9.3 mg/dL (8.4-10.2); Carbon Dioxide 24 mmol/L (22-30); Chloride 107 mmol/L (98-107); Cholesterol 255 mg/dL (0-200); Estimated Glomerular Filt Rate > 60; Glucose 89 mg/dL (65-110); HDL Direct 36 mg/dL; Potassium 4.2 mmol/L (3.4-5.0); Sodium 139 mmol/L (137-145); Triglycerides 253 mg/dL (<150)
[2024-01-06 19:31] LABS: LDL Cholesterol Direct 153 mg/dL
[2024-01-06 20:03] LABS: Hemoglobin A1C 5.1 % (<5.7)
[2024-01-09 05:24] LABS: Insulin Level Total 13.4 uIU/mL (<=18.4)
== END 2024-01-06 08:16 | disposition home or self-care (01) ==
LOC: ANHGOSHLAB 08:17
PROVIDERS: PCP Clinical Nurse Specialist; Visit Provider Clinical Nurse Specialist
DX: Z13.220 Encounter for screening for lipoid disorders (principal); Z13.228 Encounter for screening for other metabolic disorders; R73.9 Hyperglycemia, unspecified; R42 Dizziness and giddiness; E88.819 Insulin resistance, unspecified
CPT/HCPCS: 36415; 80053; 80061; 83036; 83525; 84443; 85025

== ENCOUNTER 2025-01-20 10:04 | Outpatient (CLI) | payer OTHER, SELFPAY ==
[2025-01-20 10:24] LABS: Basophils Percent Auto 0.6 % (0.2-1.2); Eosinophils Absolute Auto 0.1 K/mm3 (0-0.3); Eosinophils Percent Auto 0.9 % (0-4.4); Hematocrit 39.7 % (37.0-47.0); Hemoglobin 12.5 g/dL (12.0-15.0); Immature Granulocyte Absolute 0.02 K/mm3 (0.00-0.031); Immature Granulocyte Percent A 0.3 % (0-0.5); Lymphocytes Absolute Auto 2.56 K/mm3 (0.9-3.2); Lymphocytes Percent Auto 38.2 % (18.3-44.2); Mean Corpuscular HGB Conc 31.5 g/dl (32-36); Mean Corpuscular Hemoglobin 26.9 pg (26-34); Mean Corpuscular Volume 85.4 fl (80-100); Monocytes Absolute Auto 0.2 K/mm3 (0.1-0.6); Monocytes Percent Auto 3.6 % (2.6-8.5); Neutrophils Absolute Auto 3.8 K/mm3 (1.3-6.7); Neutrophils Percent Auto 56.4 % (45.5-73.1); Platelet Count Result 272 k/mm3 (150-375); Red Blood Count 4.65 M/mm3 (4.2-5.4); White Blood Count 6.7 K/mm3 (4.5-10.0)
[2025-01-20 10:40] LABS: Iron 49 ug/dL (37-170)
[2025-01-20 10:49] LABS: Percent Iron Saturation 14 % (20-50)
[2025-01-20 11:16] LABS: Ferritin 8.75 ng/mL (6.24-137)
[2025-01-21 07:34] LABS: DHEA-Sulfate 138 mcg/dL (19-237); FSH 7.3 mIU/mL; Progesterone 0.6 ng/mL; Prolactin 7.7 ng/mL
== END 2025-01-20 10:05 | disposition home or self-care (01) ==
LOC: ANHLAB 10:05
PROVIDERS: PCP Internal Medicine; Visit Provider Obstetrics & Gynecology
DX: N92.0 Excessive and frequent menstruation with regular cycle (principal); Z87.42 Personal history of other diseases of the female genital tract
CPT/HCPCS: 36415; 82627; 82670; 82728; 83001; 83002; 83498; 83540; 83550; 84144; 84146; 84402; 84403; 84443; 85025

== ENCOUNTER 2025-02-13 07:41 | Outpatient (CLI) | payer OTHER, SELFPAY ==
--- OUTSIDE RECORDS SUMMARY | 2025-02-13 07:45 | XMS_ITS | CLINICAL SUMMARY ---
Author Name Raffi Peters DRUG AND ALCOHOL COUNSELLOR Address [address] [place] [address] Phone Organization [facility] Ur[facility] Address [address] [place] [address] Phone Care Team Providers Care Group Sales Representative Name Role Phone Raffi Peters DRUG AND ALCOHOL COUNSELLOR Unavailable [phone] EmilPatricia Unavailable Raffi Peters NP, NP Unavailable [phone] No Provider Unavailable Unavailable SOCIAL HISTORY Social History Observation Description Dates Observed Sex Female 1990 None recorded VITAL SIGNS BMI Body Mass Index Percentile Date Systolic Diastolic Head Circumference Head Circumference Percentile Height Oxygen Concentration Pulse Pulse Oximeter Respiratory Rate Temperature Weight Uqrgsv-lmu-toyttn Percentile 41.1 95 kg/m 2 Unknown 214 132 mmHg 88 mmHg Unknown Unknown 64 [in_i] Unknown 103 /min 99 % 16 /min 98.8 240 [lb_av] Unknown ALLERGIES AND ADVERSE REACTIONS Allergy Type Effective Datetime (Low) Effective Datetime (High) Substance / Product Reaction Severity Status Drug Allergy [id number]:4 9:23.731 No information recorded Augmentin Numbness Active MEDICATIONS Medication Directions Start Date Form Frequency Route Duration Duration Units Status Strength Strength Units of Measure doxycycline hyclate Take 1 tablet (Oral) every 12 hours for 10 days 20161123 16 table t every 12 hours Oral 10 days suspend ed 100 mg Bromfed DM Take 2 tsp (oral) every 4-6 hours PRN - Cough 14 syrup every 4-6 hours oral No set duration recorded No set duration amount recorded suspend ed 2-30-10 mg/5 mL Zithromax Take (Oral) for 5 days 2 tablets Daily x first day, then 1 tab Daily x 4 days 390742 14 table t No frequency recorded Oral 5 days suspend ed 250 mg azithromyci n Take 1 tablet 1 time per day for 5 days table t 1 time per day No route record ed 5 days suspend ed 500 mg ondansetron Take 1 tablet (Oral) 3 times per day PRN - Nausea for 3 days table t,dis integ ratin g 3 times per day Oral 3 days suspend ed 4 mg prednisone Take 1 tablet (Oral) 2 times per day for 5 days table t 2 times per day Oral 5 days suspend ed 20 mg prednisone Take 1 tablet (Oral) 2 times per day for 5 days 20171123 table t 2 times per day Oral 5 days suspend ed 20 mg prednisone Take 2 tablet 1 time per day for 5 days table t 1 time per day No route record ed 5 days suspend ed 20 mg dicyclomine Take 1 capsule every 8 hours PRN 06 capsu le every 8 hours No route record ed No set duration recorded No set duration amount recorded active 10 mg Zofran Take 1 tablet every 8 hours PRN - Nausea 06 table t every 8 hours No route record ed No set duration recorded No set duration amount recorded active 4 mg doxycycline hyclate Take 1 tablet (oral) 2 times per day for 10 days table t 2 times per day oral 10 days active 100 mg fexofenadin e-pseudoeph edrine Take 1 tablet (oral) 1 time per day for 10 days table t exten ded relea se 24 hr 1 time per day oral 10 days active 180-240 mg Lexapro Take No date record ed No form recor ded No frequency recorded No route record ed No set duration recorded No set duration amount recorded suspend ed No dosage strength recorded No dosage strength units of measure recorded minocycline Take No date record ed No form recor ded No frequency recorded No route record ed No set duration recorded No set duration amount recorded active No dosage strength recorded No dosage strength units of measure recorded sertraline Take No date record ed No form recor ded No frequency recorded No route record ed No set duration recorded No set duration amount recorded active No dosage strength recorded No dosage strength units of measure recorded trazodone Take No date record ed No form recor ded No frequency recorded No route record ed No set duration recorded No set duration amount recorded active No dosage strength recorded No dosage strength units of measure recorded Vitamin D2 Take No date record ed No form recor ded No frequency recorded No route record ed No set duration recorded No set duration amount recorded active No dosage strength recorded No dosage strength units of measure recorded Zoloft Take No date record ed No form recor ded No frequency recorded No route record ed No set duration recorded No set duration amount recorded suspend ed No dosage strength recorded No dosage strength units of measure recorded PROBLEM LIST Names Dates Status Bronchitis, not specified as acute or chronic 20 716214 active URI, ACUTE NOS 64613344 active Major depressive disorder, single episode, unspe cified No date recorded active Insomnia, unspecified No date recorded active Otitis media, unspecified, right ear 24669749 active URI, ACUTE NOS 75602240 active Vomiting 12760861 active SINUSITIS, ACUTE 20181104 active VIRAL SYNDROME 71347090 active NAUSEA WITH VOMITING 20181228 active Diarrhea, unspecified 20181228 active Acute sinusitis, unspecified 20200323 act daija FAMILY HISTORY Description Relation Diabetes Father Diabetes Paternal Grandfather Diabetes Paternal Grandmother ENCOUNTERS Encounter Performer Location E/M Code E/M Label Date Diagnosi s visit Raffi Peters [facility] Ur[facility] [address] No E/M display label [id number] SINUSITIS, ACUTE LAB RESULTS Overall Code Overall Text [Code] Result Type (Code) Result Text Result Value Relevant Reference Range Date Lab Name Street City State Zip Code No overall lab code recorded Discharge Patient {DC101} QTY(1) No result type code recorded Discharg e Patient {DC101} QTY(1) No range recorded 20171123 14 No lab name recor ded No street recorde d No city recor ded No state record ed No zip code recor ded 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) Payer name Policy type / Coverage type Policy ID Covered republican ID Insurance type Policy Baltazar / [id number] None Recorded 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 PROCEDURE NOTE Date Name Status Summary Text (N otes) 20181104 Discharge Patient {DC101} Completed Di scharge Patient {DC101} QTY(1) 20181104 [id number] Completed OFFICE/OUTPATIE NT VISIT EST None recorded None recorded None recorded None recorde d None recorded None recorded None recorded None recorde d PROCEDURES Date Name Status Summary Text (N otes) 20181104 Discharge Patient {DC101} Completed Di scharge Patient {DC101} QTY(1) 88889833 [id number] Completed OFFICE/OUTPATIE NT VISIT EST None recorded None recorded None recorded None recorde d None recorded None recorded None recorded None recorde d ASSESSMENTS No information recorded LABORATORY REPORT NARRATIVE NOTE No information recorded PATHOLOGY REPORT NARRATIVE NOTE No information recorded IMAGING NARRATIVE Result Code Result Text Date Status Urgency Interp retation None None None None None None DISCHARGE SUMMARY NOTE * Allergies: Allergy Type Effective Datetime (Low) Effective Datetime (High) Substance / Product Reaction Severity Status Drug Allergy [id number]:4 9:23.731 No information recorded Augmentin Numbness Active * Medication Current: Medication Directions Start Date Form Frequency Route Duration Duration Units Status Strength Strength Units of Measure doxycycline hyclate Take 1 tablet (Oral) every 12 hours for 10 days 20161123 table t every 12 hours Oral 10 days suspend ed 100 mg Bromfed DM Take 2 tsp (oral) every 4-6 hours PRN - Cough 14 syrup every 4-6 hours oral No set duration recorded No set duration amount recorded suspend ed 2-30-10 mg/5 mL Zithromax Take (Oral) for 5 days 2 tablets Daily x first day, then 1 tab Daily x 4 days 14 table t No frequency recorded Oral 5 days suspend ed 250 mg azithromyci n Take 1 tablet 1 time per day for 5 days 16 table t 1 time per day No route record ed 5 days suspend ed 500 mg ondansetron Take 1 tablet (Oral) 3 times per day PRN - Nausea for 3 days 16 table t,dis integ ratin g 3 times per day Oral 3 days suspend ed 4 mg prednisone Take 1 tablet (Oral) 2 times per day for 5 days 16 table t 2 times per day Oral 5 days suspend ed 20 mg prednisone Take 1 tablet (Oral) 2 times per day for 5 days 20171123 14 table t 2 times per day Oral 5 days suspend ed 20 mg prednisone Take 2 tablet 1 time per day for 5 days 15 table t 1 time per day No route record ed 5 days suspend ed 20 mg dicyclomine Take 1 capsule every 8 hours PRN 06 capsu le every 8 hours No route record ed No set duration recorded No set duration amount recorded active 10 mg Zofran Take 1 tablet every 8 hours PRN - Nausea table t every 8 hours No route record ed No set duration recorded No set duration amount recorded active 4 mg doxycycline hyclate Take 1 tablet (oral) 2 times per day for 10 days table t 2 times per day oral 10 days active 100 mg fexofenadin e-pseudoeph edrine Take 1 tablet (oral) 1 time per day for 10 days table t exten ded relea se 24 hr 1 time per day oral 10 days active 180-240 mg Lexapro Take No date record ed No form recor ded No frequency recorded No route record ed No set duration recorded No set duration amount recorded suspend ed No dosage strength recorded No dosage strength units of measure recorded minocycline Take No date record ed No form recor ded No frequency recorded No route record ed No set duration recorded No set duration amount recorded active No dosage strength recorded No dosage strength units of measure recorded sertraline Take No date record ed No form recor ded No frequency recorded No route record ed No set duration recorded No set duration amount recorded active No dosage strength recorded No dosage strength units of measure recorded trazodone Take No date record ed No form recor ded No frequency recorded No route record ed No set duration recorded No set duration amount recorded active No dosage strength recorded No dosage strength units of measure recorded Vitamin D2 Take No date record ed No form recor ded No frequency recorded No route record ed No set duration recorded No set duration amount recorded active No dosage strength recorded No dosage strength units of measure recorded Zoloft Take No date record ed No form recor ded No frequency recorded No route record ed No set duration recorded No set duration amount recorded suspend ed No dosage strength recorded No dosage strength units of measure recorded * Plan of Care (advice, pending tests, pending diagnostic tests): Treatment Type Code Text Date Observatio n Data Instruction [id number] Patient Education 2018-11-04 Drink plenty of fluids. Instruction [id number] Patient Education 2018-11-[address]y of rest. Instruction [id number] Patient Education 2018-11-04 Return to clinic if signs or symptoms persist or worsen. Instruction [id number] Patient Education 2018-11-04 Nasal saline rinse/spray 3-4 times per day Instruction [id number] Patient Education 2018-11-[address] sinuses in a warm steamy shower with salt water rinses twice a day. Instruction [id number] Patient Education 2018-11-04 Tyleno l every 4-6 hours as needed and/or Ibuprofen every 6-8 hours as needed, over the counter for pain or fever. Instruction [id number] Patient Education 2018-11-04 Warm s alt water gargles as needed for sore throat - 1/2 tsp salt to 1 cup warm water, gargle as desired. Instruction [id number] Patient Education 2018-11-04 Follow up with your Primary care physician in next 2-5 days. Instruction [id number] Patient Education 2018-11-04 Do not stop taking your control pills, but use back up contraception while you are using antibiotics, and for the rest of that cycle. Instruction [id number] Patient Education 2018-11-04 Trial of Claritin D or Zyrtec D for congestion... * Visit Diagnosis: SINUSITIS, ACUTE (J01.90) * Referrals: First Name Last Name NPI# Reason None recorded None recorded None recorded None recorde d HISTORY AND PHYSICAL NOTE * Reason for Visit: Patient Reports: Sinus congestion [Onset: 2 Day(s) Reports Acute onset; Justyna.: Reports Throbbing, Sinusitis; Location: Reports Bilateral; Pattern: Reports Seasonal; Assoc. Sx: Reports Sinus pressure - Frontal, Sore throat, Headache]; Body Aches; Sore throat [Onset: 2 Day(s)]; Chills; Nasal drainage. Patient Denies: Fever; Cough; Loss of hearing; Loss of voice; Wheezing; Swollen glands * Family History: Description Relation Diabetes Father Diabetes Paternal Grandfather Diabetes Paternal Grandmother * * Allergies: Allergy Type Effective Datetime (Low) Effective Datetime (High) Substance / Product Reaction Severity Status Drug Allergy [id number]:4 9:23.731 No information recorded Augmentin Numbness Active * Problems: Names Dates Status Bronchitis, not specified as acute or chronic 20 855902 active URI, ACUTE NOS 47272848 active Major depressive disorder, single episode, unspe cified No date recorded active Insomnia, unspecified No date recorded active Otitis media, unspecified, right ear 00078888 active URI, ACUTE NOS 59795210 active Vomiting 09204869 active SINUSITIS, ACUTE 75266684 active VIRAL SYNDROME 37199676 active NAUSEA WITH VOMITING 24751658 active Diarrhea, unspecified 20181228 active Acute sinusitis, unspecified 20200323 act daija * Vitals: BMI Body Mass Index Percentile Date Systolic Diastolic Head Circumference Head Circumference Percentile Height Oxygen Concentration Pulse Pulse Oximeter Respiratory Rate Temperature Weight Uhiuud-bwa-dqwbtd Percentile 41.1 95 kg/m 2 Unknown 214 132 mmHg 88 mmHg Unknown Unknown 64 [in_i] Unknown 103 /min 99 % 16 /min 98.8 240 [lb_av] Unknown * Review of Systems: * Allergy/Immun* Patient Denies* Recurring infections * Runny nose - clear * Sneezing * Watery eyes * Cardio* Patient Denies* Chest pain/discomfort * Murmur * Constitutional* Patient Reports* Body Aches * Chills * Patient Denies* Fatigue * Fever * Malaise * Weight loss * ENT/Mouth* Patient Denies* Ear pain?? * Earache * Patient Reports* Nasal drainage * Sore throat (Onset: 2 Day(s)) * Respiratory* Patient Denies* Cough * Shortness of breath?? * Wheezing * Exam: * General : Normal* Normal : Patient is oriented to time, place and person,Well developed,No acute distress,Affect is normal,Mood is normal,Patient appears non-toxic * Skin, Hair, Nails : Normal* Normal : No pallor, edema, or uunusual rashes. * Head : Abnormal* Normal : Normocephalic,No evidence of trauma * Abnormal : Tender right frontal sinus,Tender nasal bridge,Tender right maxillary sinus * Eyes : Normal* Normal : PERRLA,Lids and lashes are normal,Orthotropic,Normal conjunctiva * Ears : Normal* Normal : External ear appears normal. Ear canals and tympanic membranes are normal. * Nose : Abnormal* Normal : Normal nasal mucosa,Nasal discharge absent,Norrmal nostril(s) noted * Abnormal : Nasal turbinates erythematous both nasal cavities * Oral pharynx : Normal* Normal : Lips appear normal,Normal tongue,Normal gingiva,Normal appearing tonsils,Normal soft palate,Normal oral mucosa, Moist mucus membranes,Normal posterior pharynx,Normal dentitia * Neck : Normal* Normal : Normal cervical spine, no meningeal signs or nuchal rigidity. * Lymph Nodes : Abnormal* Abnormal : Cervical lymph nodes enlarged on exam * Chest/Lungs : Normal* Normal : No signs of respiratory distress,Chest is clear to auscultation bilaterally upon exam,Normal and symmetrical appearing chest on exam * Cardiac : Normal* Normal : Heart normal to auscultation,Normal heart rate noted,Normal rhythm noted * Plan of Care (advice, pending tests, pending diagnostic tests): Treatment Type Code Text Date Observatio n Data Instruction [id number] Patient Education 2018-11-04 Drink plenty of fluids. Instruction [id number] Patient Education 2018-11-[address] of rest. Instruction [id number] Patient Education 2018-11-04 Return to clinic if signs or symptoms persist or worsen. Instruction [id number] Patient Education 2018-11-04 Nasal saline rinse/spray 3-4 times per day Instruction [id number] Patient Education 2018-11-[address] sinuses in a warm steamy shower with salt water rinses twice a day. Instruction [id number] Patient Education 2018-11-04 Tyleno l every 4-6 hours as needed and/or Ibuprofen every 6-8 hours as needed, over the counter for pain or fever. Instruction [id number] Patient Education 2018-11-04 Warm s alt water gargles as needed for sore throat - 1/2 tsp salt to 1 cup warm water, gargle as desired. Instruction [id number] Patient Education 2018-11-04 Follow up with your Primary care physician in next 2-5 days. Instruction [id number] Patient Education 2018-11-04 Do not stop taking your control pills, but use back up contraception while you are using antibiotics, and for the rest of that cycle. Instruction [id number] Patient Education 2018-11-04 Trial of Claritin D or Zyrtec D for congestion... * Lab Results: Overall Code Overall Text [Code] Result Type (Code) Result Text Result Value Relevant Reference Range Date Lab Name [facility] Zip Code No overall lab code recorded Discharge Patient {DC101} QTY(1) No result type code recorded Discharg e Patient {DC101} QTY(1) No range recorded 20171123 No lab name recor ded No street recorde d No city recor ded No state record ed No zip code recor ded * Radiology Results: Overall Code Overall Text [Code] Result Type (Code) Result Text Result Value Relevant Reference Range Date Lab Name [facility] Zip Code None recorded None recorded None recorded None recorded None recorded None recorded None recor ded None recor ded None recorde d None recor ded None record ed None recor ded * Visit Diagnosis: SINUSITIS, ACUTE (J01.90) * Referrals: First Name Last Name NPI# Reason None recorded None recorded None recorded None recorde d PLAN OF TREATMENT Treatment Type Code Text Date Instructio n Data Instruction [id number] Patient Education 2018-11-04 Drink plenty of fluids. Instruction [id number] Patient Education 2018-11-[address] of rest. Instruction [id number] Patient Education 2018-11-04 Return to clinic if signs or symptoms persist or worsen. Instruction [id number] Patient Education 2018-11-04 Nasal saline rinse/spray 3-4 times per day Instruction [id number] Patient Education 2018-11-[address] sinuses in a warm steamy shower with salt water rinses twice a day. Instruction [id number] Patient Education 2018-11-04 Tyleno l every 4-6 hours as needed and/or Ibuprofen every 6-8 hours as needed, over the counter for pain or fever. Instruction [id number] Patient Education 2018-11-04 Warm s alt water gargles as needed for sore throat - 1/2 tsp salt to 1 cup warm water, gargle as desired. Instruction [id number] Patient Education 2018-11-04 Follow up with your Primary care physician in next 2-5 days. Instruction [id number] Patient Education 2018-11-04 Do not stop taking your control pills, but use back up contraception while you are using antibiotics, and for the rest of that cycle. Instruction [id number] Patient Education 2018-11-04 Trial of Claritin D or Zyrtec D for congestion... CHIEF COMPLAINT AND REASON FOR VISIT NARRATIVE Patient Reports: Sinus congestion [Onset: 2 Day(s) Reports Acute onset; Justyna.: Reports Throbbing, Sinusitis; Location: Reports Bilateral; Pattern: Reports Seasonal; Assoc. Sx: Reports Sinus pressure - Frontal, Sore throat, Headache]; Body Aches; Sore throat [Onset: 2 Day(s)]; Chills; Nasal drainage. Patient Denies: Fever; Cough; Loss of hearing; Loss of voice; Wheezing; Swollen glands
--- OUTSIDE RECORDS SUMMARY | 2025-02-13 07:45 | XMS_ITS | CLINICAL SUMMARY ---
Author Name Piter Harris Address [address] [place] [address] Phone Organization [facility] Address [address] [place] [address] Phone Care Team Providers Care [employer] Supervisor Name Role Phone Piter Harris Unavailable [phone] Piter Knight Unavailable [phone] Elise Putnam Unavailable No Provider Unavailable Unavailable SOCIAL HISTORY Social History Observation Description Dates Observed Sex Female 1990 None recorded VITAL SIGNS BMI Body Mass Index Percentile Date Systolic Diastolic Head Circumference Head Circumference Percentile Height Oxygen Concentration Pulse Pulse Oximeter Respiratory Rate Temperature Weight Bqrmoz-hwn-amneul Percentile 38.9 92 kg/m 2 Unknown 216 120 mmHg 90 mmHg Unknown Unknown 63 [in_i] Unknown 101 /min 98 % 16 /min 99 220.125 [lb_av] Unknown ALLERGIES AND ADVERSE REACTIONS Allergy Type Effective Datetime (Low) Effective Datetime (High) Substance / Product Reaction Severity Status Drug Allergy 4943-34-90M61:4 9:23.731 No information recorded Augmentin Numbness Active MEDICATIONS No medication information recorded PROBLEM LIST Names Dates Status Bronchitis, not specified as acute or chronic 216 active URI, ACUTE NOS 32490961 active Major depressive disorder, single episode, unspe cified No date recorded active Insomnia, unspecified No date recorded active Otitis media, unspecified, right ear 61640527 active URI, ACUTE NOS 01340548 active Vomiting 35290071 active SINUSITIS, ACUTE 89531437 active VIRAL SYNDROME 00285764 active NAUSEA WITH VOMITING 42483687 active Diarrhea, unspecified 52375587 active Acute sinusitis, unspecified 80411744 act daija FAMILY HISTORY Description Relation Diabetes Father Diabetes Paternal Grandfather Diabetes Paternal Grandmother ENCOUNTERS Encounter Performer Location E/M Code E/M Label Date Diagnosi s visit Piter Harris [facility] [address] Office or other outpatient visit (comprehensive, (comprehensive - moderate)) [id number] Bronchitis, not specified as acute or chronic LAB RESULTS Overall Code Overall Text [Code] Result Type (Code) Result Text Result Value Relevant Reference Range Date Lab Name [facility] Zip Code No overall lab code recorded Influenza [84150] No result type code recorded Influenz a [87884] Negative Normal = Negative [address] [facility] [place] [address] [place] [place] [address] No overall lab code recorded Discharge Patient [DC101] QTY(1) No result type code recorded Discharg e Patient [DC101] QTY(1) No range recorded [address] [facility] [place] [address] [place] [address] [place] [address] 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) Payer name Policy type / Coverage type Policy ID Covered green party ID Insurance type Policy Baltazar / [id number] None Recorded 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 PROCEDURE NOTE Date Name Status Summary Text (N otes) [id number] Influenza Completed Influenza [8780 4] QTY(1) The influenza test today is NEGATIVE [id number] Discharge Patient Completed Discharge Patient [DC101] QTY(1) 56896553 [id number] Completed OFFICE/OUTPATIE NT VISIT NEW None recorded None recorded None recorded None recorde d [id number] Influenza Completed Influenza [8780 4] QTY(1) The influenza test today is NEGATIVE PROCEDURES Date Name Status Summary Text (N otes) [id number] Influenza Completed Influenza [8780 4] QTY(1) The influenza test today is NEGATIVE [id number] Discharge Patient Completed Discharge Patient [DC101] QTY(1) [id number] Completed OFFICE/OUTPATIE NT VISIT NEW None recorded None recorded None recorded None recorde d [id number] Influenza Completed Influenza [8780 4] QTY(1) The influenza test today is NEGATIVE ASSESSMENTS No information recorded LABORATORY REPORT NARRATIVE NOTE No information recorded PATHOLOGY REPORT NARRATIVE NOTE No information recorded IMAGING NARRATIVE Result Code Result Text Date Status Urgency Interp retation None None None None None None DISCHARGE SUMMARY NOTE * Allergies: Allergy Type Effective Datetime (Low) Effective Datetime (High) Substance / Product Reaction Severity Status Drug Allergy [id number]:4 9:23.731 No information recorded Augmentin Numbness Active * Medication Current: No medication information recorded * Plan of Care (advice, pending tests, pending diagnostic tests): Treatment Type Code Text Date Observatio n Data Instruction [id number] Patient Education 2017-11-06 Dennis bell cleared for discharge Instruction [id number] Patient Education 2017-11-06 Drink plenty of fluids. Instruction [id number] Patient Education 2017-11-06 Follow up with Primary care physician in next 2-5 days. Instruction [id number] Patient Education 2017-11-06 Please take all medications as directed. Finish all antibiotics (unless instructed otherwise), or you may not fully treat the infection and relapse. Instruction [id number] Patient Education 2017-11-06 Tyleno l every 4-6 hours as needed and/or Ibuprofen every 6-8 hours as needed, over the counter for pain or fever. * Visit Diagnosis: Bronchitis, not specified as acute or chronic (J40) * Referrals: First Name Last Name NPI# Reason None recorded None recorded None recorded None recorde d HISTORY AND PHYSICAL NOTE * Reason for Visit: Patient Reports: Cough [ONSET: 2 Day(s) Reports Acute; Frequency: Intermittent; Justyna.: Reports Dry;Assoc. Sx: Denies Chills, Vomiting, Wheezing, Shortness of breath Reports Chest Pain, Earache, Runny nose, Sore throat, Fever, Congestion]; Earache [Onset: 2 Day(s) Reports Acute; Justyna.: Reports Mild; Location: Reports Bilateral; Assoc. Sx: Denies Ear drainage Reports Cough, Runny nose, Sore throat]; Nasal drainage [Onset: 2 Day(s) Reports Acute; Justyna.: Reports Clear, URI Symptoms; Location: Reports Bilateral; Assoc. Sx: Denies Sinus pressure, Headache Reports Cough, Ear pain, Fever, Sore throat, Congestion]; Nasal congestion [Onset: 2 Day(s) Reports Acute; Justyna.: Reports Bilateral; Assoc. Sx: Denies Headache Reports Cough, Earache, Fever, Sore throat]; Sore throat [Onset: 2 Day(s) Reports Acute; Assoc. Sx: Denies Headache, Hoarseness or changing voice, Rash, Swollen lymph nodes, Vomiting, Body Aches Reports Cough, Ear pain, Fever, Nasal discharge]; Chest pain/discomfort [Onset: 2 Day(s) Reports Acute; Justyna.: Reports Tightness; Assoc. Sx: Denies Dyspnea, Nausea, Weakness, Shortness ofbreath Reports Cough]; Fever [Onset: 1 Day(s) Reports Acute; Justyna.: Reports Intermittent, Low grade; Assoc. Sx: Denies Chills, Diarrhea, Myalgia, Nausea, Vomiting Reports Cough, Sore throat]. PatientDenies: Oral lesions; Sinus pressure; Sinus drainage; Dyspnea; Pleuritic; Shortness of breath; Sputum; Wheezing; Headache; Dizziness; Chronic steroids; Immunocompromised; Anemia; Bleeding; Easy bruising; Rash; Myalgias; Neck pain; Joint pain; Abdominal pain; Nausea; Chills; SPRAGUE; Murmur Dictation: Patient complains of low grade fever, bilateral ear pain, congestion with clear drainage, sore throat, dry cough, and chest tightness x 2 days. No headache,, SOB, abdominal pain, nausea, body aches, orrash. Dictation: Patient complains of low grade fever, bilateral ear pain, congestion with clear drainage, sore throat, dry cough, and chest tightness x 2 days. No headache,, SOB, abdominal pain, nausea, body aches, or rash. * Family History: Description Relation Diabetes Father Diabetes Paternal Grandfather Diabetes Paternal Grandmother * * Allergies: Allergy Type Effective Datetime (Low) Effective Datetime (High) Substance / Product Reaction Severity Status Drug Allergy 2241-54-70I00:4 9:23.731 No information recorded Augmentin Numbness Active * Problems: Names Dates Status Bronchitis, not specified as acute or chronic 20 330293 active URI, ACUTE NOS 02091679 active Major depressive disorder, single episode, unspe cified No date recorded active Insomnia, unspecified No date recorded active Otitis media, unspecified, right ear 07362561 active URI, ACUTE NOS 96606735 active Vomiting 70436763 active SINUSITIS, ACUTE 40591285 active VIRAL SYNDROME 67951628 active NAUSEA WITH VOMITING 83341953 active Diarrhea, unspecified 81213905 active Acute sinusitis, unspecified 20200323 act daija * Vitals: BMI Body Mass Index Percentile Date Systolic Diastolic Head Circumference Head Circumference Percentile Height Oxygen Concentration Pulse Pulse Oximeter Respiratory Rate Temperature Weight Zgnlqj-zsd-lowkff Percentile 38.9 92 kg/m 2 Unknown 216 120 mmHg 90 mmHg Unknown Unknown 63 [in_i] Unknown 101 /min 98 % 16 /min 99 220.125 [lb_av] Unknown * Review of Systems: * Allergy/Immun* Patient Denies* Chronic steroids * Immunocompromised * Cardio* Patient Reports* Chest pain/discomfort (Onset: 2 Day(s); Onset: Reports Acute; Justyna.: Reports Tightness; Assoc. Sx: Reports Cough; Assoc. Sx: Denies Dyspnea; Assoc. Sx: Denies Nausea; Assoc. Sx: Denies Weakness; Assoc. Sx: Denies Shortness of breath) * Patient Denies* SPRAGUE * Murmur * Constitutional* Patient Denies* Chills * Patient Reports* Fever (Onset: 1 Day(s); Onset: Reports Acute; Justyna.: Reports Intermittent; Justyna.: Reports Low grade; Assoc. Sx: Denies Chills; Assoc. Sx: Reports Cough; Assoc. Sx: Denies Diarrhea; Assoc. Sx: Denies Myalgia; Assoc. Sx: Denies Nausea; Assoc. Sx: Reports Sore throat; Assoc. Sx: Denies Vomiting) * ENT/Mouth* Patient Reports* Earache (Onset: 2 Day(s); Onset: Reports Acute; Justyna.: Reports Mild; Location: Reports Bilateral; Assoc. Sx: Reports Cough; Assoc. Sx: Reports Runny nose; Assoc. Sx: Reports Sore throat; Assoc. Sx: De nies Ear drainage) * Nasal congestion (Onset: 2 Day(s); Onset: Reports Acute; Justyna.: Reports Bilateral; Assoc. Sx: Reports Cough; Assoc. Sx: Reports Earache; Assoc. Sx: Reports Fever; Assoc. Sx: Denies Headache; Assoc. Sx: Reports Sore throat) * Nasal drainage (Onset: 2 Day(s); Onset: Reports Acute; Justyna.: Reports Clear; Hx of: Reports URI Symptoms; Location: Reports Bilateral; Assoc. Sx: Denies Sinus pressure; Assoc. Sx: Reports Cough; Assoc. Sx: Reports Ear pain??; Assoc. Sx: Reports Fever; Assoc. Sx: Denies Headache; Assoc. Sx: Reports Sore throat; Assoc. Sx: Reports Congestion) * Patient Denies* Oral lesions * Sinus drainage * Sinus pressure * Patient Reports* Sore throat (Assoc. Sx: Reports Cough; Onset: 2 Day(s); Onset: Reports Acute; Assoc. Sx: Reports Ear pain??; Assoc. Sx: Reports Fever; Assoc. Sx: Denies Headache; Assoc. Sx: Denies Hoarseness or changing voice??; Assoc. Sx: Reports Nasal discharge??; Assoc. Sx: Denies Rash; Assoc. Sx: Denies Swollen lymph nodes??; Assoc. Sx: Denies Vomiting; Assoc. Sx: Denies Body Aches) * GI* Patient Denies* Abdominal pain * Nausea * Julian/Lymph* Patient Denies* Anemia * Bleeding * Easy bruising * Musc/Skel* Patient Denies* Joint pain * Myalgias * Neck pain * Neurologic* Patient Denies* Dizziness * Headache * Respiratory* Patient Reports* Cough (Assoc. Sx: Reports Chest Pain; Assoc. Sx: Reports Earache; Assoc. Sx: Reports Runny nose; Assoc. Sx: Reports Sore throat; ONSET: 2 Day(s); Frequency: Intermittent; Onset: Reports Acute; Justyna.: Reports Dry??; Assoc. Sx: Denies Chills; Assoc. Sx: Reports Fever; Assoc. Sx: Denies Vomiting; Assoc. Sx: Denies Wheezing; Assoc. Sx: Reports Congestion; Assoc. Sx: Denies Shortness of breath) * Patient Denies* Dyspnea * Pleuritic * Shortness of breath?? * Sputum * Wheezing * Skin/Breast* Patient Denies* Rash * Exam: * General : Normal* Normal : Well developed,No acute distress,Patient appears non-toxic * Skin, Hair, Nails : Normal* Normal : No pallor, edema, or uunusual rashes. * Head : Normal* Normal : Normocephalic, atraumatic * Ears : Normal* Normal : External ear appears normal. Ear canals and tympanic membranes are normal. * Nose : Abnormal* Normal : Normal appearing nose,Norrmal nostril(s) noted * Abnormal : Boggy nasal mucosa both nasal passages noted,Congested nasal mucosa both nasal passages noted,Erythematous mucosa both nasal passages noted,Moderate amount clear nasal drainage noted both nostrils * Oral pharynx : Normal* Normal : no erythema noted. no tonsillar exudate. Airway is patent. * Neck : Normal* Normal : No deformity of neck,Neck is supple,No palpable lymphadenopathy * Lymph Nodes : Normal* Normal : Submandibular lymph nodes normal on exam,Supraclavicular nodes normal on exam * Chest/Lungs : Normal* Normal : Clear to auscultation bilaterally. no crackles, wheezing or rhonchi. * Cardiac : Normal* Normal : regular rate and rhythm. No gallops, murmurs or rubs. * Neurological : Normal* Normal : Patient is appropriately alert,Patient follows verbal commands appropriately * Psych : Normal* Normal : Patient is orented to time, place and person,Mood appears to be Normal,Affect Normal * Plan of Care (advice, pending tests, pending diagnostic tests): Treatment Type Code Text Date Observatio n Data Instruction [id number] Patient Education 2017-11-06 Patien t cleared for discharge Instruction [id number] Patient Education 2017-11-06 Drink plenty of fluids. Instruction [id number] Patient Education 2017-11-06 Follow up with Primary care physician in next 2-5 days. Instruction [id number] Patient Education 2017-11-06 Please take all medications as directed. Finish all antibiotics (unless instructed otherwise), or you may not fully treat the infection and relapse. Instruction [id number] Patient Education 2017-11-06 Tyleno l every 4-6 hours as needed and/or Ibuprofen every 6-8 hours as needed, over the counter for pain or fever. * Lab Results: Overall Code Overall Text [Code] Result Type (Code) Result Text Result Value Relevant Reference Range Date Lab Name [facility] Zip Code No overall lab code recorded Influenza [81468] No result type code recorded Influenz a [57450] Negative Normal = Negative [facility] [address] [facility] [address] No overall lab code recorded Discharge Patient [DC101] QTY(1) No result type code recorded Discharg e Patient [DC101] QTY(1) No range recorded [facility] Jeanie eaton [address] [place] [place] [address] * Radiology Results: Overall Code Overall Text [Code] Result Type (Code) Result Text Result Value Relevant Reference Range Date Lab Name [facility] State Zip Code None recorded None recorded None recorded None recorded None recorded None recorded None recor ded None recor ded None recorde d None recor ded None record ed None recor ded * Visit Diagnosis: Bronchitis, not specified as acute or chronic (J40) * Referrals: First Name Last Name NPI# Reason None recorded None recorded None recorded None recorde d PLAN OF TREATMENT Treatment Type Code Text Date Instructio n Data Instruction [id number] Patient Education 2017-11-06 BRONCH ITIS, Abx Tx (Adult) Instruction [id number] Patient Education 2017-11-06 Follow up 2-5 days (PCP) Instruction [id number] Patient Education 2017-11-06 Patien t cleared for discharge Instruction [id number] Patient Education 2017-11-06 Drink plenty of fluids. Instruction [id number] Patient Education 2017-11-06 Follow up with Primary care physician in next 2-5 days. Instruction [id number] Patient Education 2017-11-06 Please take all medications as directed. Finish all antibiotics (unless instructed otherwise), or you may not fully treat the infection and relapse. Instruction [id number] Patient Education 2017-11-06 Tyleno l every 4-6 hours as needed and/or Ibuprofen every 6-8 hours as needed, over the counter for pain or fever. CHIEF COMPLAINT AND REASON FOR VISIT NARRATIVE Patient Reports: Cough [ONSET: 2 Day(s) Reports Acute; Frequency: Intermittent; Justyna.: Reports Dry;Assoc. Sx: Denies Chills, Vomiting, Wheezing, Shortness of breath Reports Chest Pain, Earache, Runny nose, Sore throat, Fever, Congestion]; Earache [Onset: 2 Day(s) Reports Acute; Justyna.: Reports Mild; Location: Reports Bilateral; Assoc. Sx: Denies Ear drainage Reports Cough, Runny nose, Sore throat]; Nasal drainage [Onset: 2 Day(s) Reports Acute; Justyna.: Reports Clear, URI Symptoms; Location: Reports Bilateral; Assoc. Sx: Denies Sinus pressure, Headache Reports Cough, Ear pain, Fever, Sore throat, Congestion]; Nasal congestion [Onset: 2 Day(s) Reports Acute; Justyna.: Reports Bilateral; Assoc. Sx: Denies Headache Reports Cough, Earache, Fever, Sore throat]; Sore throat [Onset: 2 Day(s) Reports Acute; Assoc. Sx: Denies Headache, Hoarseness or changing voice, Rash, Swollen lymph nodes, Vomiting, Body Aches Reports Cough, Ear pain, Fever, Nasal discharge]; Chest pain/discomfort [Onset: 2 Day(s) Reports Acute; Justyna.: Reports Tightness; Assoc. Sx: Denies Dyspnea, Nausea, Weakness, Shortness ofbreath Reports Cough]; Fever [Onset: 1 Day(s) Reports Acute; Justyna.: Reports Intermittent, Low grade; Assoc. Sx: Denies Chills, Diarrhea, Myalgia, Nausea, Vomiting Reports Cough, Sore throat]. PatientDenies: Oral lesions; Sinus pressure; Sinus drainage; Dyspnea; Pleuritic; Shortness of breath; Sputum; Wheezing; Headache; Dizziness; Chronic steroids; Immunocompromised; Anemia; Bleeding; Easy bruising; Rash; Myalgias; Neck pain; Joint pain; Abdominal pain; Nausea; Chills; SPRAGUE; Murmur Dictation: Patient complains of low grade fever, bilateral ear pain, congestion with clear drainage, sore throat, dry cough, and chest tightness x 2 days. No headache,, SOB, abdominal pain, nausea, body aches, orrash. Dictation: Patient complains of low grade fever, bilateral ear pain, congestion with clear drainage, sore throat, dry cough, and chest tightness x 2 days. No headache,, SOB, abdominal pain, nausea, body aches, or rash.
--- OUTSIDE RECORDS SUMMARY | 2025-02-13 07:45 | XMS_ITS | CLINICAL SUMMARY ---
Author Name Raffi Peters [facility] DIRECTOR Address [address] [place] [address] Phone Organization [facility] Address [address] [place] [address] Phone Care Team Providers Care Service Station Console Operator Name Role Phone Raffi Peters NP Unavailable [phone] Carrol Mcclendon Unavailable [phone] Mira Steinissa Unavailable Raffi Peters NP, NP Unavailable [phone] No Provider Unavailable Unavailable SOCIAL HISTORY Social History Observation Description Dates Observed Sex Female 1990 None recorded VITAL SIGNS BMI Body Mass Index Percentile Date Systolic Diastolic Head Circumference Head Circumference Percentile Height Oxygen Concentration Pulse Pulse Oximeter Respiratory Rate Temperature Weight Nzfbvx-yex-jexqlq Percentile 39.1 47 kg/m 2 Unknown 19800 816 128 mmHg 82 mmHg Unknown Unknown 63 [in_i] Unknown 85 /min 98 % 16 /min 97.1 221 [lb_av] Unknown ALLERGIES AND ADVERSE REACTIONS Allergy Type Effective Datetime (Low) Effective Datetime (High) Substance / Product Reaction Severity Status Drug Allergy 6841-31-26L64:4 9:23.731 No information recorded Augmentin Numbness Active [...] or chronic 216 active URI, ACUTE NOS 55415989 active Major depressive disorder, single episode, unspe cified No date recorded active Insomnia, unspecified No date recorded active Otitis media, unspecified, right ear 51079739 active URI, ACUTE NOS 12051087 active Vomiting 75318847 active SINUSITIS, ACUTE 88322629 active VIRAL SYNDROME 79613343 active NAUSEA WITH VOMITING 52336840 active Diarrhea, unspecified 02749206 active Acute sinusitis, unspecified 20200323 act daija FAMILY HISTORY Description Relation Diabetes Father Diabetes Paternal Grandfather Diabetes Paternal Grandmother ENCOUNTERS Encounter Performer Location E/M Code E/M Label Date Diagnosi s visit [facility] [address] No E/M display label [id number] Otitis media, unspecified, right ear visit [facility] [address] No E/M display label [id number] URI, ACUTE NOS visit [facility] [address] No E/M display label [id number] Vomiting LAB RESULTS Overall Code Overall Text [Code] Result Type (Code) Result Text Result Value Relevant Reference Range Date Lab Name [facility] Zip [facility] No overall lab code recorded Rapid Strep [30759] No result type code recorded Rapid Strep [20223] Negative Normal = Negative [address] [facility] [place] [address] [facility] [phone] 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) Payer name Policy type / Coverage type Policy ID Covered alliance party ID Insurance type Policy Baltazar / [id number] None Recorded 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 PROCEDURE NOTE Date Name Status Summary Text (N otes) [id number] Rapid Strep Completed Rapid Strep [87 880] QTY(1) The rapid strep test today is Negative None recorded None recorded None recorded None recorde d [id number] Rapid Strep Completed Rapid Strep [87 880] QTY(1) The rapid strep test today is Negative PROCEDURES Date Name Status Summary Text (N otes) 20180707 Rapid Strep Completed Rapid Strep [87 880] QTY(1) The rapid strep test today is Negative None recorded None recorded None recorded None recorde d [id number] Rapid Strep Completed Rapid Strep [87 880] QTY(1) The rapid strep test today is Negative ASSESSMENTS No information recorded LABORATORY REPORT NARRATIVE NOTE No information recorded PATHOLOGY REPORT NARRATIVE NOTE No information recorded IMAGING NARRATIVE Result Code Result Text Date Status Urgency Interp retation None None None None None None DISCHARGE SUMMARY NOTE * Allergies: Allergy Type Effective Datetime (Low) Effective Datetime (High) Substance / Product Reaction Severity Status Drug Allergy 4123-37-15L28:4 9:23.731 No information recorded Augmentin Numbness Active [...] Code Text Date Observatio n Data Instruction [id number] Patient Education 2018-07-07 Drink plenty of fluids. Instruction [id number] Patient Education 2018-07-07 Plenty of Rest Instruction [id number] Patient Education 2018-07-07 Follow up with your Primary care physician in next 2-5 days. Instruction [id number] Patient Education 2018-07-07 Avoice Caffeine, Alcohol, Peppermint, and Chocolate. Keep Head of bed elevated 4-6 inches. Instruction [id number] Patient Education 2018-07-07 Increa se clear liquids (water, gatorade, pedialyte, broths, jello, etc) Hold off on solids for 12-18 hours. Then advance to BRAT diet (banana, rice, applesauce, tea, toast/crackers), then advance further as tolerated. * Visit Diagnosis: Otitis media, unspecified, right ear (H66.91) URI, ACUTE NOS (J06.9) Vomiting (R11.10) * Referrals: First Name Last Name NPI# Reason None recorded None recorded None recorded None recorde d HISTORY AND PHYSICAL NOTE * Reason for Visit: Patient Reports: Headache; Sore throat [Onset: Reports Sudden Onset (hours); Frequency: Constant; Justyna.: Reports Hurts constantly, recent ill contacts?, URI Symptoms; Treatment: No Change OTC Meds; Location: Reports Both sides; Assoc. 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 * Family History: Description Relation Diabetes Father Diabetes Paternal Grandfather Diabetes Paternal Grandmother * * Allergies: Allergy Type Effective Datetime (Low) Effective Datetime (High) Substance / Product Reaction Severity Status Drug Allergy 5724-23-52X87:4 9:23.731 No information recorded Augmentin Numbness Active * Problems: Names Dates Status Bronchitis, not specified as acute or chronic 20 320441 active URI, ACUTE NOS 07553326 active Major depressive disorder, single episode, unspe cified No date recorded active Insomnia, unspecified No date recorded active Otitis media, unspecified, right ear 48632003 active URI, ACUTE NOS 47141885 active Vomiting 83601278 active SINUSITIS, ACUTE 12065584 active VIRAL SYNDROME 88581266 active NAUSEA WITH VOMITING 18959048 active Diarrhea, unspecified 22029229 active Acute sinusitis, unspecified 20200323 act daija * Vitals: BMI Body Mass Index Percentile Date Systolic Diastolic Head Circumference Head Circumference Percentile Height Oxygen Concentration Pulse Pulse Oximeter Respiratory Rate Temperature Weight Pybank-ivn-meaznb Percentile 39.1 47 kg/m 2 Unknown 67980 816 128 mmHg 82 mmHg Unknown Unknown 63 [in_i] Unknown 85 /min 98 % 16 /min 97.1 221 [lb_av] Unknown * Review of Systems: * ENT/Mouth* Patient Reports* Sinus drainage * Sore throat (Onset: Reports Sudden Onset (hours); Frequency: Constant; Justyna.: Reports Hurts constantly; Hx of: Reports recent ill contacts?; 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 Sx: Reports Headache; Assoc. Sx: Reports Swollen lymph nodes??; Assoc. Sx: Reports Nasal discharge??; Intensity: Moderate) * GI* Patient Reports* Nausea * Vomiting (Onset: 3 Day(s)) * Neurologic* Patient Reports* Headache * Exam: * General : Abnormal* Abnormal : Patient appears ill. * Skin, Hair, Nails : Normal* Normal : No pallor, edema, or uunusual rashes. * Head : Abnormal* Abnormal : Tender right frontal sinus,Tender left frontal sinus,Tender nasal bridge,Tender right maxillary sinus,Tender left maxillary sinus * Eyes : Normal* Normal : Pupils are equal round and reactive to light. No conjuctival injection. * Ears : Abnormal* Abnormal : Right TM Erythematous * Nose : Normal* Normal : no nasal discharge. No mucosal changes. * Oral pharynx : Normal* Normal : no erythema noted. no tonsillar exudate. Airway is patent. * Neck : Normal* Normal : Normal cervical spine, no meningeal signs or nuchal rigidity. * Lymph Nodes : Abnormal* Normal : Submental lymph nodes normal on exam,Submandibular lymph nodes normal on exam,Supraclavicular nodes normal on exam * Abnormal : Cervical lymph nodes enlarged on exam * Chest/Lungs : Normal* Normal : Clear to auscultation bilaterally. no crackles, wheezing or rhonchi. * Cardiac : Normal* Normal : Heart normal to auscultation,Normal heart rate noted,Normal rhythm noted * Plan of Care (advice, pending tests, pending diagnostic tests): Treatment Type Code Text Date Observatio n Data Instruction [id number] Patient Education 2018-07-07 Drink plenty of fluids. Instruction [id number] Patient Education 2018-07-07 Plenty of Rest Instruction [id number] Patient Education 2018-07-07 Follow up with your Primary care physician in next 2-5 days. Instruction [id number] Patient Education 2018-07-07 Avoice Caffeine, Alcohol, Peppermint, and Chocolate. Keep Head of bed elevated 4-6 inches. Instruction [id number] Patient Education 2018-07-07 Increa se clear liquids (water, gatorade, pedialyte, broths, jello, etc) Hold off on solids for 12-18 hours. Then advance to BRAT diet (banana, rice, applesauce, tea, toast/crackers), then advance further as tolerated. * Lab Results: Overall Code Overall Text [Code] Result Type (Code) Result Text Result Value Relevant Reference Range Date Lab Name [facility] Zip [facility] No overall lab code recorded Rapid Strep [39245] No result type code recorded Rapid Strep [70842] Negative Normal = Negative [facility] [place] [address] [place] [address] * Radiology Results: Overall Code Overall Text [Code] Result Type (Code) Result Text Result Value Relevant Reference Range Date Lab Name [facility] Zip [facility] None recorded None recorded None recorded None recorded None recorded None recorded None recor ded None recor ded None recorde d None recor ded None record ed None recor ded * Visit Diagnosis: Otitis media, unspecified, right ear (H66.91) URI, ACUTE NOS (J06.9) Vomiting (R11.10) * Referrals: First Name Last Name NPI# Reason None recorded None recorded None recorded None recorde d PLAN OF TREATMENT Treatment Type Code Text Date Instructio n Data Instruction [id number] Patient Education 2018-07-07 Drink plenty of fluids. Instruction [id number] Patient Education 2018-07-07 Plenty of Rest Instruction [id number] Patient Education 2018-07-07 Follow up with your Primary care physician in next 2-5 days. Instruction [id number] Patient Education 2018-07-07 Avoice Caffeine, Alcohol, Peppermint, and Chocolate. Keep Head of bed elevated 4-6 inches. Instruction [id number] Patient Education 2018-07-07 Increa se clear liquids (water, gatorade, pedialyte, broths, jello, etc) Hold off on solids for 12-18 hours. Then advance to BRAT diet (banana, rice, applesauce, tea, toast/crackers), then advance further as tolerated. CHIEF COMPLAINT AND REASON FOR VISIT NARRATIVE Patient Reports: Headache; Sore throat [Onset: Reports Sudden Onset (hours); Frequency: Constant; Justyna.: Reports Hurts constantly, recent ill contacts?, URI Symptoms; Treatment: No Change OTC Meds; Location: Reports Both sides; Assoc. 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
--- OUTSIDE RECORDS SUMMARY | 2025-02-13 07:45 | XMS_ITS | CLINICAL SUMMARY ---
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 Name Role Phone Erin Shin NP Unavailable [phone] Patricia Stein Unavailable Erin Shin NP Unavailable [phone] Jeremy Merino Unavailable No Provider Unavailable Unavailable SOCIAL HISTORY Social History Observation Description Dates Observed Sex Female 1990 None recorded VITAL SIGNS BMI Body Mass Index Percentile Date Systolic Diastolic Head Circumference Head Circumference Percentile Height Oxygen Concentration Pulse Pulse Oximeter Respiratory Rate Temperature Weight Frmrxq-weq-npzjzg Percentile 42.6 9 kg/m 2 Unknown 206 128 mmHg 88 mmHg Unknown Unknown 63 [in_i] Unknown 90 /min 98 % 16 /min 97.8 241 [lb_av] Unknown ALLERGIES AND ADVERSE REACTIONS Allergy Type Effective Datetime (Low) Effective Datetime (High) Substance / Product Reaction Severity Status Drug Allergy 0548-57-60E45:4 9:23.731 No information recorded Augmentin Numbness Active [...] or chronic 216 active URI, ACUTE NOS 19879605 active Major depressive disorder, single episode, unspe cified No date recorded active Insomnia, unspecified No date recorded active Otitis media, unspecified, right ear 93755028 active URI, ACUTE NOS 58235645 active Vomiting 34361312 active SINUSITIS, ACUTE 65522623 active VIRAL SYNDROME 72807019 active NAUSEA WITH VOMITING 19540918 active Diarrhea, unspecified 84510426 active Acute sinusitis, unspecified 20200323 act daija FAMILY HISTORY Description Relation Diabetes Father Diabetes Paternal Grandfather Diabetes Paternal Grandmother ENCOUNTERS Encounter Performer Location E/M Code E/M Label Date Diagnosi [facility] [address] No E/M display label [id number] NAUSEA WITH VOMITING visit [facility] [address] No E/M display label [id number] Diarrhea, unspecified LAB RESULTS Overall Code Overall Text [Code] Result Type (Code) Result Text Result Value Relevant Reference Range Date Lab Name [facility] Zip Code No overall lab code recorded Urine [55031] No result type code recorded Urine Pregnanc y [08861] Negative Normal = Negative [facility] [place] [address] [facility] [place] [address] No overall lab code recorded No overall lab test recorded No result type code recorded Glu neg No range recorded [facility] [place] [address] [place] [address] No overall lab code recorded No overall lab test recorded No result type code recorded Bilirubi n neg No range recorded [facility] [place] [address] [facility] [place] [address] No overall lab code recorded No overall lab test recorded No result type code recorded Ketone neg No range [facility] [place] [address] [facility] [place] [address] No overall lab code recorded No overall lab test recorded No result type code recorded Specific Onley 1.[address] [facility] [place] [address] [facility] [place] [address] No overall lab code recorded No overall lab test recorded No result type code recorded Blood 1+ No range [facility] [place] [address] [facility] [place] [address] No overall lab code recorded No overall lab test recorded No result type code recorded PH 6.[address] [facility] [place] [address] [facility] [address] No overall lab code recorded No overall lab test recorded No result type code recorded Protein neg No range recorded [facility] [place] [address] [facility] [place] [address] No overall lab code recorded No overall lab test recorded No result type code recorded Urobilin ogen neg No range [address] [facility] [place] [address] [facility] [place] [address] No overall lab code recorded No overall lab test recorded No result type code recorded Nitrite neg No range [address] [facility] [place] [address] [facility] [place] [address] No overall lab code recorded No overall lab test recorded No result type code recorded Leukocyt es neg No range recorded [facility] [place] [address] [facility] [place] [address] No overall lab code recorded No overall lab test recorded No result type code recorded Appearan ce yellow, clear No range recorded [facility] [place] [facility] [address] [facility] [place] [address] No overall lab code recorded Urinalysi s [96343] QTY(1) No result type code recorded Urinalys is [09676] QTY(1) [address] range [address] [facility] [address] [facility] [address] 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) Payer name Policy type / Coverage type Policy ID Covered alliance party ID Insurance type Policy [employer]zar / [id number] None Recorded 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 PROCEDURE NOTE Date Name Status Summary Text (N otes) 20181228 Urinalysis Completed Urinalysis [810 02] QTY(1) 20181228 Urine Completed Urine Pregna ncy [96830] QTY(1) The test today is NEGATIVE None recorded None recorded None recorded None recorde d 20181228 Urinalysis Completed Urinalysis [810 02] QTY(1) 20181228 Urine Completed Urine Pregna ncy [36228] QTY(1) The test today is NEGATIVE PROCEDURES Date Name Status Summary Text (N otes) 20181228 Urinalysis Completed Urinalysis [810 02] QTY(1) 20181228 Urine Completed Urine Pregna ncy [76516] QTY(1) The test today is NEGATIVE None recorded None recorded None recorded None recorde d 20181228 Urinalysis Completed Urinalysis [810 02] QTY(1) 88652544 Urine Completed Urine Pregna ncy [14954] QTY(1) The test today is NEGATIVE ASSESSMENTS No information recorded LABORATORY REPORT NARRATIVE NOTE No information recorded PATHOLOGY REPORT NARRATIVE NOTE No information recorded IMAGING NARRATIVE Result Code Result Text Date Status Urgency Interp retation None None None None None None DISCHARGE SUMMARY NOTE * Allergies: Allergy Type Effective Datetime (Low) Effective Datetime (High) Substance / Product Reaction Severity Status Drug Allergy [id number]:4 9:23.731 No information recorded Augmentin Numbness Active [...] Code Text Date Observatio n Data Instruction [id number] Patient Education 2018-12-28 Drink plenty of fluids. Instruction [id number] Patient Education 2018-12-[address] of rest. Instruction [id number] Patient Education 2018-12-28 Don't share glasses or eating utensils. Wash hands frequently. Avoid close respiratory contact. Instruction [id number] Patient Education 2018-12-28 Increa se clear liquids (water, gatorade, pedialyte, broths, jello, etc) Hold off on solids for 12-18 hours. Then advance to BRAT diet (banana, rice, applesauce, tea, toast/crackers), then advance further as tolerated. Observation Urinalysis None specified No Observ ation data available for this record * Visit Diagnosis: NAUSEA WITH VOMITING (R11.2) Diarrhea, unspecified (R19.7) * Referrals: First Name Last Name NPI# Reason None recorded None recorded None recorded None recorde d HISTORY AND PHYSICAL NOTE * Reason for Visit: Patient Reports: Abdominal pain [Free text: Patient complains of abdominal cramping with several episodes of diarrhea over the past day. Patient also reports nausea with five episodes of vomiting. Denies hemataemesis, denies melena. Denies fever.]; Vomiting [Onset: 1 Day(s); Justyna.: Denies Projectile; Assoc. Sx: Denies Abdominal distention, Abdominal pain, Back pain Reports Abdominal cramps]; Diarrhea [Justyna.: Denies Bloody Reports Abdominal cramps, Watery??stool; Assoc. Sx: Denies Abdominal pain]; Nausea; Urinary frequency. * Family History: Description Relation Diabetes Father Diabetes Paternal Grandfather Diabetes Paternal Grandmother * * Allergies: Allergy Type Effective Datetime (Low) Effective Datetime (High) Substance / Product Reaction Severity Status Drug Allergy 1083-95-90Y87:4 9:23.731 No information recorded Augmentin Numbness Active * Problems: Names Dates Status Bronchitis, not specified as acute or chronic 6 active URI, ACUTE NOS 32465514 active Major depressive disorder, single episode, unspe cified No date recorded active Insomnia, unspecified No date recorded active Otitis media, unspecified, right ear 71676488 active URI, ACUTE NOS 13222655 active Vomiting 20126957 active SINUSITIS, ACUTE 29782061 active VIRAL SYNDROME 15008573 active NAUSEA WITH VOMITING 20181228 active Diarrhea, unspecified 20181228 active Acute sinusitis, unspecified 20200323 act daija * Vitals: BMI Body Mass Index Percentile Date Systolic Diastolic Head Circumference Head Circumference Percentile Height Oxygen Concentration Pulse Pulse Oximeter Respiratory Rate Temperature Weight Hrdwhm-tuu-iwnexl Percentile 42.6 9 kg/m 2 Unknown 57180 206 128 mmHg 88 mmHg Unknown Unknown 63 [in_i] Unknown 90 /min 98 % 16 /min 97.8 241 [lb_av] Unknown * Review of Systems: * Cardio* Patient Denies* Chest pain/discomfort * Palpitations?? * Constitutional* Patient Denies* Chills * Fever * Malaise * Weakness * GI* Patient Reports* Abdominal pain (Free text: Patient complains of abdominal cramping with several episodes of diarrhea over the past day. Patient also reports nausea with five episodes of vomiting. Denies hemataemesis, denies melena. Denies fever.) * Diarrhea (Justyna.: Reports Abdominal cramps; Justyna.: Denies Bloody; Justyna.: Reports Watery??stool; Assoc. Sx: Denies Abdominal pain) * Patient Denies* Melena * Patient Reports* Nausea * Patient Denies* Rectal bleeding * Patient Reports* Vomiting (Onset: 1 Day(s); Justyna.: Denies Projectile; Assoc. Sx: Reports Abdominal cramps; Assoc. Sx: Denies Abdominal distention; Assoc. Sx: Denies Abdominal pain; Assoc. Sx: Denies Back pain) * * Patient Denies* Dysuria * Flank pain * Hematuria * Patient Reports* Urinary frequency * Julian/Lymph* Patient Denies* Swollen lymph nodes * Musc/Skel* Patient Denies* Myalgias * Neurologic* Patient Denies* Dizziness * Headache * Respiratory* Patient Denies* Cough * Pleuritic * Shortness of breath?? * Skin/Breast* Patient Denies* Rash * Exam: * General : Normal* Normal : Patient is oriented to time, place and person,Well developed,No acute distress,Affect is normal,Mood is normal,Patient appears non-toxic * Head : Normal* Normal : Normocephalic, atraumatic * Eyes : Normal* Normal : Sclera normal,Lids and lashes are normal,Normal conjunctiva * Ears : Normal* Normal : External ear appears normal. Ear canals and tympanic membranes are normal. * Nose : Normal* Normal : no nasal discharge. No mucosal changes. * Oral pharynx : Normal* Normal : Lips appear normal,Normal tongue,Normal appearing tonsils,Normal oral mucosa, Moist mucus membranes,Normal posterior pharynx * Lymph Nodes : Normal* Normal : No swollen lymph nodes. * Chest/Lungs : Normal* Normal : No signs of respiratory distress,Chest is clear to auscultation bilaterally upon exam,Normal and symmetrical appearing chest on exam * Cardiac : Normal* Normal : Heart normal to auscultation,Normal heart rate noted,Normal rhythm noted * Abdominal : Normal* Normal : No evidence of hernia,Abdomen normal to inspection,Abdomen normal to palpation, no masses,tenderness, organomegaly,Normoactive bowel sounds in all four quadrants,Normal spleen noted,Normal liver exam noted,No hepatosplenomegaly present,There is no CVA tenderness to palpation. * Neurological : Normal* Normal : Normal mentation. Normal sensation and motor function. * Plan of Care (advice, pending tests, pending diagnostic tests): Treatment Type Code Text Date Observatio n Data Instruction [id number] Patient Education 2018-12-28 Drink plenty of fluids. Instruction [id number] Patient Education 2018-12-[address] of rest. Instruction [id number] Patient Education 2018-12-28 Don't share glasses or eating utensils. Wash hands frequently. Avoid close respiratory contact. Instruction [id number] Patient Education 2018-12-28 Increa se clear liquids (water, gatorade, pedialyte, broths, jello, etc) Hold off on solids for 12-18 hours. Then advance to BRAT diet (banana, rice, applesauce, tea, toast/crackers), then advance further as tolerated. Observation Urinalysis None specified No Observ ation data available for this record * Lab Results: Overall Code Overall Text [Code] Result Type (Code) Result Text Result Value Relevant Reference Range Date Lab Name [facility] [place] [facility] [place] overall lab code recorded Urine [55043] No result type code recorded Urine Pregnanc y [88770] Negative Normal = Negative [facility] [place] [facility] [address] [place] [address] No overall lab code recorded No overall lab test recorded No result type code recorded Glu neg No range recorded [facility] [place] [address] [facility] [address] No overall lab code recorded No overall lab test recorded No result type code recorded Bilirubi n neg No range recorded [facility] [place] [address] [place] [address] No overall lab code recorded No overall lab test recorded No result type code recorded Ketone neg No range recorded [facility] [place] [address] [place] [address] No overall lab code recorded No overall lab test recorded No result type code recorded Specific Onley 1.[address] [facility] [place] [facility] [address] [place] [address] No overall lab code recorded No overall lab test recorded No result type code recorded Blood 1+ No range recorded [facility] [place] [facility] [address] [place] [address] No overall lab code recorded No overall lab test recorded No result type code recorded PH 6.[address] [facility] [place] [address] [place] [address] No overall lab code recorded No overall lab test recorded No result type code recorded Protein neg No range recorded [facility] [place] [address] [place] [address] No overall lab code recorded No overall lab test recorded No result type code recorded Urobilin ogen neg No range recorded [facility] [place] [address] [place] [address] No overall lab code recorded No overall lab test recorded No result type code recorded Nitrite neg No range recorded [address] [facility] [place] [address] [place] [address] No overall lab code recorded No overall lab test recorded No result type code recorded Leukocyt es neg No range recorded [facility] [place] [address] [place] [address] No overall lab code recorded No overall lab test recorded No result type code recorded Appearan ce yellow, clear No range recorded [facility] [place] [address] [place] [address] No overall lab code recorded Urinalysi s [64521] QTY(1) No result type code recorded Urinalys is [20310] QTY(1) No [address] [facility] [place] [address] [place] [address] * Radiology Results: Overall Code Overall Text [Code] Result Type (Code) Result Text Result Value Relevant Reference Range Date Lab Name [facility] [place] [facility] [place] recorded None recorded None recorded None recorded None recorded None recorded None recor ded None recor ded None recorde d None recor ded None record ed None recor ded * Visit Diagnosis: NAUSEA WITH VOMITING (R11.2) Diarrhea, unspecified (R19.7) * Referrals: First Name Last Name NPI# Reason None recorded None recorded None recorded None recorde d PLAN OF TREATMENT Treatment Type Code Text Date Instructio n Data Instruction [id number] Patient Education 2018-12-28 FOOD P OISONING vs Gastro-Ent (6yr - Adult) Instruction [id number] Patient Education 2018-12-28 Drink plenty of fluids. Instruction [id number] Patient Education 2018-12-[address] of rest. Instruction [id number] Patient Education 2018-12-28 Don't share glasses or eating utensils. Wash hands frequently. Avoid close respiratory contact. Instruction [id number] Patient Education 2018-12-28 Increa se clear liquids (water, gatorade, pedialyte, broths, jello, etc) Hold off on solids for 12-18 hours. Then advance to BRAT diet (banana, rice, applesauce, tea, toast/crackers), then advance further as tolerated. Observation Urinalysis None specified No instru ction data available for this record CHIEF COMPLAINT AND REASON FOR VISIT NARRATIVE Patient Reports: Abdominal pain [Free text: Patient complains of abdominal cramping with several episodes of diarrhea over the past day. Patient also reports nausea with five episodes of vomiting. Denies hemataemesis, denies melena. Denies fever.]; Vomiting [Onset: 1 Day(s); Justyna.: Denies Projectile; Assoc. Sx: Denies Abdominal distention, Abdominal pain, Back pain Reports Abdominal cramps]; Diarrhea [Justyna.: Denies Bloody Reports Abdominal cramps, Watery??stool; Assoc. Sx: Denies Abdominal pain]; Nausea; Urinary frequency.
--- OUTSIDE RECORDS SUMMARY | 2025-02-13 07:45 | XMS_ITS | CLINICAL SUMMARY ---
Author Name Gayla Phillips EDUCATION DIAGNOSTICIAN Address [address] [place] [address] Phone Organization [facility] Address [address] [place] [address] Phone Care Team Providers Care Oil Pit Attendant Name Role Phone Gayla Phillips EDUCATION DIAGNOSTICIAN Unavailable EmilPatricia Unavailable No Provider Unavailable Unavailable SOCIAL HISTORY Social History Observation Description Dates Observed Sex Female 1990 None recorded VITAL SIGNS BMI Body Mass Index Percentile Date Systolic Diastolic Head Circumference Head Circumference Percentile Height Oxygen Concentration Pulse Pulse Oximeter Respiratory Rate Temperature Weight Kkdnmg-kcl-lhsoje Percentile 46.7 65 kg/m 2 Unknown 502 124 mmHg 71 mmHg Unknown Unknown 63 [in_i] Unknown 109 /min 97 % 16 /min 97.7 264 [lb_av] Unknown ALLERGIES AND ADVERSE REACTIONS Allergy Type Effective Datetime (Low) Effective Datetime (High) Substance / Product Reaction Severity Status Drug Allergy 8214-32-18Z18:4 9:23.731 No information recorded Augmentin Numbness Active [...] not specified as acute or chronic 20 803670 active URI, ACUTE NOS 50516022 active Major depressive disorder, single episode, unspe cified No date recorded active Insomnia, unspecified No date recorded active Otitis media, unspecified, right ear 58346180 active URI, ACUTE NOS 76873717 active Vomiting 53109121 active SINUSITIS, ACUTE 10687231 active VIRAL SYNDROME 55404960 active NAUSEA WITH VOMITING 20181228 active Diarrhea, unspecified 20181228 active Acute sinusitis, unspecified 20200323 act daija FAMILY HISTORY Description Relation Diabetes Father Diabetes Paternal Grandfather Diabetes Paternal Grandmother ENCOUNTERS Encounter Performer Location E/M Code E/M Label Date Diagnosi s visit [facility] Urgent [facility] [address] No E/M display label 20200323 Acute sinusitis, unspecified LAB RESULTS Overall Code Overall Text [Code] Result Type (Code) Result Text Result Value Relevant Reference Range Date Lab Name [facility] No overall lab code recorded Rapid Strep [71087] No result type code recorded Rapid Strep [67464] Negative Normal = Negative 502 [facility] [place] [address] [place] [address] No overall lab code recorded Influenza [21358] No result type code recorded Influenz a [84616] Negative No range recorded 502 [facility] [place] [address] [place] [address] 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) Payer name Policy type / Coverage type Policy ID Covered green party ID Insurance type Policy Baltazar / [id number] None Recorded 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 PROCEDURE NOTE Date Name Status Summary Text (N otes) 20200323 Rapid Strep Completed Rapid Strep [87 880] QTY(1) The rapid strep test today is Negative 20200323 Influenza Completed Influenza [8780 4] QTY(1) None recorded None recorded None recorded None recorde d 20200323 Rapid Strep Completed Rapid Strep [87 880] QTY(1) The rapid strep test today is Negative 20200323 Influenza Completed Influenza [8780 4] QTY(1) PROCEDURES Date Name Status Summary Text (N otes) 20200323 Rapid Strep Completed Rapid Strep [87 880] QTY(1) The rapid strep test today is Negative 20200323 Influenza Completed Influenza [8780 4] QTY(1) None recorded None recorded None recorded None recorde d 20200323 Rapid Strep Completed Rapid Strep [87 880] QTY(1) The rapid strep test today is Negative 20200323 Influenza Completed Influenza [8780 4] QTY(1) ASSESSMENTS No information recorded LABORATORY REPORT NARRATIVE NOTE No information recorded PATHOLOGY REPORT NARRATIVE NOTE No information recorded IMAGING NARRATIVE Result Code Result Text Date Status Urgency Interp retation None None None None None None DISCHARGE SUMMARY NOTE * Allergies: Allergy Type Effective Datetime (Low) Effective Datetime (High) Substance / Product Reaction Severity Status Drug Allergy 8236-83-28P99:4 9:23.731 No information recorded Augmentin Numbness Active [...] Code Text Date Observatio n Data Instruction [id number] Patient Education 2020-03-[address] ent[address] of rest. Instruction [id number] Patient Education 2020-03-23 Drink plenty of fluids. Instruction [id number] Patient Education 2020-03-23 Apply warm compresses to the face for 20 min, 3-5 times per day. Instruction [id number] Patient Education 2020-03-23 Don't share glasses or eating utensils. Wash hands frequently. Instruction [id number] Patient Education 2020-03-23 To min imize the chance of re-infection: Change toothbrush after 3-4 days on antibiotics. Alternatively, buy a multi-pack of toothbrushes (they can be found inexpensively at the [employer] store) and use one per day, discarding it at the end of the day and then start with a new regular toothbrush after that. Instruction [id number] Patient Education 2020-03-23 OKAY T O CONTINUE NASONEX. Instruction [id number] Patient Education 2020-03-23 Your i dentifiable risk level was minimal and testing for COVID-19 was not indicated at this time. Home care includes combating symptoms: hand washing, cough and cold medications, rest, increased vitamin C and adequate fluid intake. However, some illnesses may change quickly, if your symptoms worsen, or new ones develop, please return to the clinic for further evaluation or go to the ER. Instruction [id number] Patient Education 2020-03-23 IF NO IMPROVEMENT IN 3-5 DAYS, FOLLOW UP WITH YOUR PRIMARY CARE DOCTOR, OR RETURN TO CLINIC. Instruction [id number] Patient Education 2020-03-23 FLU A/ B NEGATIVE. RAPID STREP NEGATIVE. * Visit Diagnosis: Acute sinusitis, unspecified (J01.90) * Referrals: First Name Last Name NPI# Reason None recorded None recorded None recorded None recorde d HISTORY AND PHYSICAL NOTE * Reason for Visit: Patient Reports: Sinus congestion; Sinus pain; Sore throat [Onset: 2 Week(s) Reports Acute; Justyna.: Reports Hurts to swallow, URI Symptoms; Assoc. Sx: Denies Abdominal pain, Ear pain, Halitosis, Headache, Rash, Truncal rash, Temp > 100.4 @ home? Reports Cough, Nasal discharge, Swollen lymph nodes, Malaise, Body Aches, swollen glands/lumps in neck?; Free text: PATIENT PRESENTS TODAY WITH COMPLAINT OF SINUS CONGESTION X 10 DAYS. +SORE THROAT, TENDER LYMPH NODES X 3 DAYS. +HEADACHE AND BODY ACHES X 2 WEEKS. REPORTS POST NASAL DRAINAGE CAUSING A DRY COUGH THAT IS INFREQUENT, MAYBE TWICE ADAY. STATES FOR THE FIRST 10 DAYS, HAD MOSTLY POST NASAL DRIP. STATES SHE IS NOW HAVING SOME YELLOW NASAL DRAINAGE. STATES SHE HAD A TEMPERATURE OF 101.8 ABOUT 10 DAYS AGO, BUT STATES SHE HAS NOT HAD ONE SINCE. REPORTS SHE FEELS A LITTLE SHORT OF BREATH BECAUSE I CAN'T BREATHE OUT OF MY NOSE. STATES SHE WENT TO [facility] WHEN THIS FIRST STARTED, AND THEY PUT HER ON A Z-PACK, STATES SHE FINISHED THE Z-PACK ABOUT 6 DAYS AGO. REPORTS SINUS RINSE, NASONEX, AND AFRIN NOT HELPING. REPORTS THE SINUS CONGESTION IS BOTHERING HER THE MOST. STATES SHE HAS HAD ABOUT 3 SINUS INFECTIONS IN THE PAST FEW WEEKS. STATES SHE IS A NANNY FOR A FAMILY WHO TRAVELED TO [place] 2 MONTHS AGO. DENIES ANY TRAVEL HERSELF. REPORTS NO SX AMONG THOSE FAMILY MEMBERS, BUT STATES AT [place] IT WAS SUGGESTED THAT SHE BE TESTED FOR COVID-19. [facility] SENT HER TO THE DRIVE THRU TESTING ON [address]. STATES THEY WERE OUT OF NASOPHARYNGEAL SWABS, SO THEY DID AN OROPHARYNGEAL SWAB. STATES THIS RESULTED NEGATIVE. STATES SHE IS NOT FEELING BETTER DESPITE THE Z- PACK AND STATES THIS FEELS LIKE A SINUS INFECTION. -Meche PHILLIPS TANK FILLER]; Cough; Nasal discharge; Swollen lymph nodes; Malaise; Body Aches;Chills; Nasal congestion [Onset: Reports Acute; Hx of: Denies Allergies Reports Bilateral]; Nasal dr ainage [Onset: Reports Acute; Hx of: Denies Allergies Reports Yellow, Greenish; Location: Reports Bilateral]; Sinus drainage; Sinus pressure [Onset: Reports Acute; Hx of: Denies Allergies Reports Sinus pressure, Runny nose - purulent; Assoc. Sx: Denies Decreased appetite, Headache, Eye pain ReportsDecreased taste and smell, Nasal discharge, Sinus pain, Teeth Pain, Congestion]; Teeth Pain; Congestion; Post-nasal drip; Myalgias; Swollen lymph nodes; Painful lymph nodes. Patient Denies: Abdominalpain; Ear pain; Halitosis; Headache; Rash; Decreased appetite; Fatigue; Fever; Weakness; Eye discharge; Eye Itching; Eye mattering; Eye redness; Eyelid redness; Eyelid swelling; Ear drainage; Earache; Hoarseness; Decreased appetite; Eye pain; Asthma; Wheezing; Sputum; Shortness of breath; Dyspnea; Chest pain/discomfort; Claudication; SPRAGUE; Edema - Pedal; Vomiting; Nausea; Diarrhea; Back pain; Watery eyes; Sneezing; Runny nose - clear; Dizziness * Family History: Description Relation Diabetes Father Diabetes Paternal Grandfather Diabetes Paternal Grandmother * * Allergies: Allergy Type Effective Datetime (Low) Effective Datetime (High) Substance / Product Reaction Severity Status Drug Allergy 9362-08-14E87:4 9:23.731 No information recorded Augmentin Numbness Active * Problems: Names Dates Status Bronchitis, not specified as acute or chronic 20 590324 active URI, ACUTE NOS 76724990 active Major depressive disorder, single episode, unspe cified No date recorded active Insomnia, unspecified No date recorded active Otitis media, unspecified, right ear 06085826 active URI, ACUTE NOS 18175536 active Vomiting 93083797 active SINUSITIS, ACUTE 39913816 active VIRAL SYNDROME 29006848 active NAUSEA WITH VOMITING 59356122 active Diarrhea, unspecified 66365592 active Acute sinusitis, unspecified 20200323 act daija * Vitals: BMI Body Mass Index Percentile Date Systolic Diastolic Head Circumference Head Circumference Percentile Height Oxygen Concentration Pulse Pulse Oximeter Respiratory Rate Temperature Weight Igonlw-agt-ytrgjf Percentile 46.7 65 kg/m 2 Unknown [id number] 502 124 mmHg 71 mmHg Unknown Unknown 63 [in_i] Unknown 109 /min 97 % 16 /min 97.7 264 [lb_av] Unknown * Review of Systems: * Allergy/Immun* Patient Denies* Runny nose - clear * Sneezing * Watery eyes * Cardio* Patient Denies* Chest pain/discomfort * Claudication * SPRAGUE * Edema - Pedal * Constitutional* Patient Reports* Chills * Patient Denies* Decreased appetite * Fatigue * Fever * Patient Reports* Malaise * Patient Denies* Weakness * ENT/Mouth* Patient Denies* Ear drainage * Ear pain?? * Earache * Halitosis * Hoarseness * Patient Reports* Nasal congestion (Onset: Reports Acute; Justyna.: Reports Bilateral; Hx of: Denies Allergies) * Nasal drainage (Onset: Reports Acute; Justyna.: Reports Yellow??; Justyna.: Reports Greenish; Hx of: Denies Allergies; Location: Reports Bilateral) * Post-nasal drip * Sinus drainage * Sinus pressure (Onset: Reports Acute; Justyna.: Reports Sinus pressure; Justyna.: Reports Runny nose - purulent; Hx of: Denies Allergies; Assoc. Sx: Denies Decreased appetite??; Assoc. Sx: Reports Decreased taste and smell??; Assoc. Sx: Denies Headache; Assoc. Sx: Reports Nasal discharge??; Assoc. Sx: Reports Sinus pain; Assoc. Sx: Denies Eye pain; Assoc. Sx: Reports Teeth Pain; Assoc. Sx: Reports Congestion) * Sore throat (Onset: 2 Week(s); Free text: PATIENT PRESENTS TODAY WITH COMPLAINT OF SINUS CONGESTIONX 10 DAYS. +SORE THROAT, TENDER LYMPH NODES X 3 DAYS. +HEADACHE AND BODY ACHES X 2 WEEKS. REPORTS POST NASAL DRAINAGE CAUSING A DRY COUGH THAT IS INFREQUENT, MAYBE TWICE A DAY. STATES FORTHE FIRST 10 DAYS, HAD MOSTLY POST NASAL DRIP. STATES SHE IS NOW HAVING SOME YELLOW NASAL DRAINAGE.STATES SHE HAD A TEMPERATURE OF 101.8 ABOUT 10 DAYS AGO, BUT STATES SHE HAS NOT HAD ONE SINCE. REPORTS SHE FEELS A LITTLE SHORT OF BREATH BECAUSE I CAN'T BREATHE OUT OF MY NOSE. STATES SHE WENT TO [facility] WHEN THIS FIRST STARTED, AND THEY PUT HER ON A Z-PACK, STATES SHE FINISHED THE Z- PACK ABOUT 6 DAYS AGO. REPORTS SINUS RINSE, NASONEX, AND AFRIN NOT HELPING. REPORTS THE SINUS CONGESTION IS BOTHERING HER THE MOST. STATES SHE HAS HAD ABOUT 3 SINUS INFECTIONS IN THE PAST FEW WEEKS. STATES SHE IS A NANNY FOR A FAMILY WHO TRAVELED TO [place] 2 MONTHS AGO. DENIES ANY TRAVEL HERSELF. REPORTS NO SX AMONG THOSE FAMILY MEMBERS, BUT STATES AT [place] IT WAS SUGGESTED THAT SHE BE TESTED FOR COVID-19. [facility] SENT HER TO THE DRIVE THRU TESTING ON [address]. STATES THEY WERE OUT OF NASOPHARYNGEAL SWABS, SO THEY DID AN OROPHARYNGEAL SWAB. STATES THIS RESULTED NEGATIVE. STATES SHE IS NOT FEELING BETTER DESPITE THE Z-PACK AND STATES THIS FEELS LIKE A SINUS INFECTION. -LANDON ESCUDERO; Onset: Reports Acute; Justyna.: Reports Hurts to swallow; Hx of: Reports URI Symptoms; Assoc. Sx: Denies Abdominal pain; Assoc. Sx: Reports Cough; Assoc. Sx: Denies Ear pain??; Assoc. Sx: Denies Halitosis; Assoc. Sx: Denies Headache; Assoc. Sx: Reports Nasal discharge??; Assoc. Sx: Denies Rash; Assoc. Sx: Reports Swollen lymph nodes??; Assoc. Sx: Reports Malaise; Assoc. Sx: Reports Body Aches; Assoc. Sx: Denies Truncal rash; Assoc. Sx: Denies Temp > 100.4 @ home?; Assoc. Sx: Reports swollen glands/lumps in neck?) * Eyes* Patient Denies* Eye discharge * Eye Itching * Eye mattering * Eye pain * Eye redness * Eyelid redness * Eyelid swelling * GI* Patient Denies* Abdominal pain * Diarrhea * Nausea * Vomiting * Julian/Lymph* Patient Reports* Painful lymph nodes * Swollen lymph nodes * Musc/Skel* Patient Denies* Back pain * Patient Reports* Myalgias * Neurologic* Patient Denies* Dizziness * Headache * Respiratory* Patient Denies* Asthma * Patient Reports* Cough * Patient Denies* Dyspnea * Shortness of breath?? * Sputum * Wheezing * Skin/Breast* Patient Denies* Rash * Exam: * General : Abnormal* Normal : Patient is oriented to time, place and person,Well developed,No acute distress,Affect is normal,Normal hygiene,Mood is normal,Patient appears non-toxic * Abnormal : Class III obesity * Skin, Hair, Nails : Normal* Normal : Normal Skin General Appearance,Capillary refill is 1-2 seconds,Normal skin temperature, warm and dry,Normal Skin color and Pigmentation,Normal Skin moisture,No rashes noted * Head : Normal* Normal : Non-tender right frontal sinus,Non-tender left frontal sinus,Non-tender right maxillary sinus,Non-tender left maxillary sinus,No facial swelling noted,No facial erythema noted * Eyes : Normal* Normal : PERRLA,Sclera normal,Lids and lashes are normal,Normal conjunctiva * Ears : Normal* Normal : Tempanic Membrane is normal,Normal Pinna,Normal External Canal * Nose : Abnormal* Normal : Normal appearing nose,Norrmal nostril(s) noted * Abnormal : Congested nasal mucosa both nasal passages noted,Erythematous mucosa both nasal passagesnoted,Purulent nasal discharge noted,Nasal turbinates erythematous both nasal cavities,Nasal turbinates edematous bilateral nasal cavities * Oral pharynx : Abnormal* Normal : Lips appear normal,Normal tongue,Normal soft palate,Normal oral mucosa, Moist mucus membranes,Normal posterior pharynx * Abnormal : Bilateral absent tonsils noted on exam * Neck : Abnormal* Normal : No deformity of neck,Neck is supple,Full cervical range of motion noted * Abnormal : Anterior cervical lymphadenopathy noted,Posterior cervical lymphadenopahty noted * Chest/Lungs : Normal* Normal : No signs of respiratory distress,Breath sounds are normal upon exam,No wheezing auscultated upon exam,No Rhonchi on auscultation,No Rales on auscultation,Normal and symmetrical appearing chest on exam * Cardiac : Normal* Normal : Heart normal to auscultation,Normal heart rate noted,Normal rhythm noted,Peripheral edema absent * Neurological : Normal* Normal : Patient is appropriately alert,Patient verbalizes normally,Patient follows verbal commandsappropriately,Patient is oriented to time, place and person,Normal gait * Plan of Care (advice, pending tests, pending diagnostic tests): Treatment Type Code Text Date Observatio n Data Instruction [id number] Patient Education 2020-03-[address] ent[address] of rest. Instruction [id number] Patient Education 2020-03-23 Drink plenty of fluids. Instruction [id number] Patient Education 2020-03-23 Apply warm compresses to the face for 20 min, 3-5 times per day. Instruction [id number] Patient Education 2020-03-23 Don't share glasses or eating utensils. Wash hands frequently. Instruction [id number] Patient Education 2020-03-23 To min imize the chance of re-infection: Change toothbrush after 3-4 days on antibiotics. Alternatively, buy a multi-pack of toothbrushes (they can be found inexpensively at the dollar store) and use one per day, discarding it at the end of the day and then start with a new regular toothbrush after that. Instruction [id number] Patient Education 2020-03-23 OKAY T O CONTINUE NASONEX. Instruction [id number] Patient Education 2020-03-23 Your i dentifiable risk level was minimal and testing for COVID-19 was not indicated at this time. Home care includes combating symptoms: hand washing, cough and cold medications, rest, increased vitamin C and adequate fluid intake. However, some illnesses may change quickly, if your symptoms worsen, or new ones develop, please return to the clinic for further evaluation or go to the ER. Instruction [id number] Patient Education 2020-03-23 IF NO IMPROVEMENT IN 3-5 DAYS, FOLLOW UP WITH YOUR PRIMARY CARE DOCTOR, OR RETURN TO CLINIC. Instruction [id number] Patient Education 2020-03-23 FLU A/ B NEGATIVE. RAPID STREP NEGATIVE. * Lab Results: Overall Code Overall Text [Code] Result Type (Code) Result Text Result Value Relevant Reference Range Date Lab Name [facility] No overall lab code recorded Rapid Strep [80227] No result type code recorded Rapid Strep [92627] Negative Normal = Negative 502 [facility] [place] [address] [place] [address] [address] No overall lab code recorded Influenza [69005] No result type code recorded Influenz a [57706] Negative No range recorded 502 [facility] [place] [address] [place] [address] [place] [address] * Radiology Results: Overall Code Overall Text [Code] Result Type (Code) Result Text Result Value Relevant Reference Range Date Lab Name [facility] None recorded None recorded None recorded None recorded None recorded None recorded None recor ded None recor ded None recorde d None recor ded None record ed None recor ded * Visit Diagnosis: Acute sinusitis, unspecified (J01.90) * Referrals: First Name Last Name NPI# Reason None recorded None recorded None recorded None recorde d PLAN OF TREATMENT Treatment Type Code Text Date Instructio n Data Instruction [id number] Patient Education 2020-03-23 SINUSI TIS, Abx Tx Instruction [id number] Patient Education 2020-03-23 FLU A/ B NEGATIVE. RAPID STREP NEGATIVE. Instruction [id number] Patient Education 2020-03-23 OKAY T O CONTINUE NASONEX. Instruction [id number] Patient Education 2020-03-[address] of rest. Instruction [id number] Patient Education 2020-03-23 Drink plenty of fluids. Instruction [id number] Patient Education 2020-03-23 Apply warm compresses to the face for 20 min, 3-5 times per day. Instruction [id number] Patient Education 2020-03-23 Don't share glasses or eating utensils. Wash hands frequently. Instruction [id number] Patient Education 2020-03-23 To min imize the chance of re-infection: Change toothbrush after 3-4 days on antibiotics. Alternatively, buy a multi-pack of toothbrushes (they can be found inexpensively at the dollar store) and use one per day, discarding it at the end of the day and then start with a new regular toothbrush after that. Instruction [id number] Patient Education 2020-03-23 OKAY T O CONTINUE NASONEX. Instruction [id number] Patient Education 2020-03-23 Your i dentifiable risk level was minimal and testing for COVID-19 was not indicated at this time. Home care includes combating symptoms: hand washing, cough and cold medications, rest, increased vitamin C and adequate fluid intake. However, some illnesses may change quickly, if your symptoms worsen, or new ones develop, please return to the clinic for further evaluation or go to the ER. Instruction [id number] Patient Education 2020-03-23 IF NO IMPROVEMENT IN 3-5 DAYS, FOLLOW UP WITH YOUR PRIMARY CARE DOCTOR, OR RETURN TO CLINIC. Instruction [id number] Patient Education 2020-03-23 FLU A/ B NEGATIVE. RAPID STREP NEGATIVE. CHIEF COMPLAINT AND REASON FOR VISIT NARRATIVE Patient Reports: Sinus congestion; Sinus pain; Sore throat [Onset: 2 Week(s) Reports Acute; Justyna.: Reports Hurts to swallow, URI Symptoms; Assoc. Sx: Denies Abdominal pain, Ear pain, Halitosis, Headache, Rash, Truncal rash, Temp > 100.4 @ home? Reports Cough, Nasal discharge, Swollen lymph nodes, Malaise, Body Aches, swollen glands/lumps in neck?; Free text: PATIENT PRESENTS TODAY WITH COMPLAINT OF SINUS CONGESTION X 10 DAYS. +SORE THROAT, TENDER LYMPH NODES X 3 DAYS. +HEADACHE AND BODY ACHES X 2 WEEKS. REPORTS POST NASAL DRAINAGE CAUSING A DRY COUGH THAT IS INFREQUENT, MAYBE TWICE ADAY. STATES FOR THE FIRST 10 DAYS, HAD MOSTLY POST NASAL DRIP. STATES SHE IS NOW HAVING SOME YELLOW NASAL DRAINAGE. STATES SHE HAD A TEMPERATURE OF 101.8 ABOUT 10 DAYS AGO, BUT STATES SHE HAS NOT HAD ONE SINCE. REPORTS SHE FEELS A LITTLE SHORT OF BREATH BECAUSE I CAN'T BREATHE OUT OF MY NOSE. STATES SHE WENT TO [facility] WHEN THIS FIRST STARTED, AND THEY PUT HER ON A Z-PACK, STATES SHE FINISHED THE Z-PACK ABOUT 6 DAYS AGO. REPORTS SINUS RINSE, NASONEX, AND AFRIN NOT HELPING. REPORTS THE SINUS CONGESTION IS BOTHERING HER THE MOST. STATES SHE HAS HAD ABOUT 3 SINUS INFECTIONS IN THE PAST FEW WEEKS. STATES SHE IS A NANNY FOR A FAMILY WHO TRAVELED TO [place] 2 MONTHS AGO. DENIES ANY TRAVEL HERSELF. REPORTS NO SX AMONG THOSE FAMILY MEMBERS, BUT STATES AT [place] IT WAS SUGGESTED THAT SHE BE TESTED FOR COVID-19. [facility] SENT HER TO THE DRIVE THRU TESTING [place] [address]. STATES THEY WERE OUT OF NASOPHARYNGEAL SWABS, SO THEY DID AN OROPHARYNGEAL SWAB. STATES THIS RESULTED NEGATIVE. STATES SHE IS NOT FEELING BETTER DESPITE THE Z- PACK AND STATES THIS FEELS LIKE A SINUS INFECTION. -Meche PHILLIPS APRN]; Cough; Nasal discharge; Swollen lymph nodes; Malaise; Body Aches;Chills; Nasal congestion [Onset: Reports Acute; Hx of: Denies Allergies Reports Bilateral]; Nasal dr ainage [Onset: Reports Acute; Hx of: Denies Allergies Reports Yellow, Greenish; Location: Reports Bilateral]; Sinus drainage; Sinus pressure [Onset: Reports Acute; Hx of: Denies Allergies Reports Sinus pressure, Runny nose - purulent; Assoc. Sx: Denies Decreased appetite, Headache, Eye pain ReportsDecreased taste and smell, Nasal discharge, Sinus pain, Teeth Pain, Congestion]; Teeth Pain; Congestion; Post-nasal drip; Myalgias; Swollen lymph nodes; Painful lymph nodes. Patient Denies: Abdominalpain; Ear pain; Halitosis; Headache; Rash; Decreased appetite; Fatigue; Fever; Weakness; Eye discharge; Eye Itching; Eye mattering; Eye redness; Eyelid redness; Eyelid swelling; Ear drainage; Earache; Hoarseness; Decreased appetite; Eye pain; Asthma; Wheezing; Sputum; Shortness of breath; Dyspnea; Chest pain/discomfort; Claudication; SPRAGUE; Edema - Pedal; Vomiting; Nausea; Diarrhea; Back pain; Watery eyes; Sneezing; Runny nose - clear; Dizziness
--- OUTSIDE RECORDS SUMMARY | 2025-02-13 07:45 | XMS_ITS | Clinical Summary ---
Author Organization [facility] [employer] Address [address] [place] [address] Care Team Providers Care Cyber Security Manager Name Role Phone Unavailable Primary Care Provider Unavailabl e Source Comments Teamwork [employer],non-owned Affiliates and Associated Physician Practices is amultiple site organization consisting of ambulatory clinics and hospital sitesin [place], [place], [place] and [place]. This disclosure is being madepursuant to the Care Everywhere program and may not contain all information available regarding this patient. Last updated 18.ezzai - how to arabia Allergies No known active allergies Medications * Be aware that medications may not be up to date on this document. Alwaysverify current medications with the patient. Medication Sig Dispensed Refills Start Date End Date Status insulin glargine (Lantus/Semglee) 100 units/mL penIndications:GDM on insulin Inject 16 (sixteen) Units to 40 (forty) Units subcutaneously at bedtime 07/20/23 Pt taking 16 units AM/ 24units PM Reasons: GDM on insulin Active Vit-DSS-Fe Fum-FA ( vitamin with iron) tabletIndications: Take 1 (one) tablet by mouth once daily Reasons: Active Glucagon (Baqsimi One Pack) 3 MG/DOSE POWDIndications:Hy poglycemia [place] 1 spray into the nose 1 (one) time for 1 dose One dose as needed intranasal for emergency use, if unable to treat low blood sugar by mouth with food Reasons: Disorder with Low Blood Sugar 1 Each 1 06/30/2023 Active blood glucose test stripIndications:M orbid obesity with BMI of 45.0-49.9, adult (HCC),Insulin controlled gestational diabetes mellitus (GDM) in third trimester (HCC) Use 1 (one) strip as directed Check fasting glucose, and one hour after each meal. 100 strip 11 06/30/2023 Active ferrous sulfate 325 (65 FE) MG tablet Take 1 (one) tablet by mouth 2 times daily with morning and evening meal Active hydrOXYzine HCl (Atarax) 10 MG tabletIndications: Insomnia Take 1 (one) tablet by mouth at bedtime Reasons: Trouble Sleeping Active insulin lispro (HumaLOG;ADMelog) 100 UNIT/ML pen Inject 6 (six) Units to 20 (twenty) Units subcutaneously as directed for 30 days Start with 2 units before breakfast, lunch and dinner. Increase as directed. 15 mL 1 07/21/2023 Active Insulin Pen Needle 32G X 4 MM MISCIndications:In sulin controlled gestational diabetes mellitus (GDM) in third trimester (HCC) Use 1 Each 5 times daily 100 Each 2 07/21/2023 Active Social History Tobacco Use Types Packs/Day Years Used Date Smoking Tobacco: Never Assessed Tobacco Cessation:Counseling Given: Not Answered Sex and Gender Information Value Date Recorded Sex Assigned at Not on file Gender Identity Not on file Sexual Orientation Not on file Last Filed Vital Signs Vital Sign Reading Time Taken Comments Blood Pressure 126/84 08/03/2023 3:32 PM CDT Pulse 97 08/03/2023 3:32 PM CDT Temperature - - Respiratory Rate - - Oxygen Saturation 98% 07/28/2023 11:50 AM CDT Inhaled Oxygen Concentration - - Weight 125.6 kg (277 lb) 07/28/2023 11:50 AM CDT Height 160 cm (5' 3 ) 06/30/2023 4:52 PM CDT Body Mass Index 49.07 06/30/2023 4:52 PM CDT Plan of Treatment Health Maintenance Due Date Last Done Comments PAP SMEAR 1992 HIV SCREENING 2007 HEPATITIS C SCREENING 11/24/2010 DTAP/TDAP/TD VACCINES (1 - Tdap) 2011 HEPATITIS B VACCINE (1 of 3 - 19+ 3-dose series) 2011 COVID-19 VACCINE ( season) 2024 09/08/2021, 08/23/2021, 08/12/2021, Additional history exists INFLUENZA VACCINE (#1) 2024 09/03/2021, 2018 DEPRESSION SCREENING 11/22/2024 ZOSTER VACCINE (1 of 2) 2042 HIB VACCINE Aged Out No longer eligi ble based on patient's age to complete this topic HPV VACCINE Aged Out No longer eligi ble based on patient's age to complete this topic MENINGOCOCCAL (Group B) VACCINE SHARED DECISION-MAKING Aged Out No longer eligible based on patient's age to complete this topic MENINGOCOCCAL GROUPS A/C/Y/W VACCINE Aged Out No longer eligible based on patient's age to complete this topic PNEUMOCOCCAL VACCINE Aged Out No long er eligible based on patient's age to complete this topic
--- OUTSIDE RECORDS SUMMARY | 2025-02-13 07:45 | XMS_ITS | CLINICAL SUMMARY ---
Author Name Piter Harris Address [address] [place] [address] Phone Organization [facility] Address [address] [place] [address] Phone Care Team Providers Care Histotechnologist Supervisor Name Role Phone Piter Harris Unavailable [phone] Sommer Og Unavailable [phone] Piter Knight Unavailable [phone] No Provider Unavailable Unavailable SOCIAL HISTORY Social History Observation Description Dates Observed Sex Female 1990 None recorded VITAL SIGNS BMI Body Mass Index Percentile Date Systolic Diastolic Head Circumference Head Circumference Percentile Height Oxygen Concentration Pulse Pulse Oximeter Respiratory Rate Temperature Weight Bowztp-qpc-jfuben Percentile 39.5 02 kg/m 2 Unknown 29774 514 139 mmHg 85 mmHg Unknown Unknown 63 [in_i] Unknown 101 /min 97 % 16 /min 97.8 223 [lb_av] Unknown ALLERGIES AND ADVERSE REACTIONS Allergy Type Effective Datetime (Low) Effective Datetime (High) Substance / Product Reaction Severity Status Drug Allergy 1003-34-37F72:4 9:23.731 No information recorded Augmentin Numbness Active MEDICATIONS No medication information recorded PROBLEM LIST Names Dates Status Bronchitis, not specified as acute or chronic 216 active URI, ACUTE NOS 80169760 active Major depressive disorder, single episode, unspe cified No date recorded active Insomnia, unspecified No date recorded active Otitis media, unspecified, right ear 55036119 active URI, ACUTE NOS 84033528 active Vomiting 38277418 active SINUSITIS, ACUTE 51650887 active VIRAL SYNDROME 26738962 active NAUSEA WITH VOMITING 20891392 active Diarrhea, unspecified 66481452 active Acute sinusitis, unspecified 01351803 act daija FAMILY HISTORY Description Relation Diabetes Father Diabetes Paternal Grandfather Diabetes Paternal Grandmother ENCOUNTERS Encounter Performer Location E/M Code E/M Label Date Diagnosi s visit Piter Harris [facility] [id number] No E/M display label [id number] URI, ACUTE NOS LAB RESULTS Overall Code Overall Text [Code] Result Type (Code) Result Text Result Value Relevant Reference Range Date Lab Name Street City State Zip Code No overall lab code recorded Discharge Patient {DC101} QTY(1) No result type code recorded Discharg e Patient {DC101} QTY(1) No range recorded No lab name recor ded No street recorde d No city recor ded No state record ed No zip code recor ded 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) Payer name Policy type / Coverage type Policy ID Covered republican ID Insurance type Policy Baltazar / [id number] None Recorded 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 PROCEDURE NOTE Date Name Status Summary Text (N otes) [id number] Discharge Patient {DC101} Completed Di scharge Patient {DC101} QTY(1) 20180404 [id number] Completed OFFICE/OUTPATIE NT VISIT EST None recorded None recorded None recorded None recorde d None recorded None recorded None recorded None recorde d PROCEDURES Date Name Status Summary Text (N otes) [id number] Discharge Patient {DC101} Completed Di scharge Patient {DC101} QTY(1) 20180404 76961 Completed OFFICE/OUTPATIE NT VISIT EST None recorded [...] / Product Reaction Severity Status Drug Allergy 9675-10-08J49:4 9:23.731 No information recorded Augmentin Numbness Active * Medication Current: No medication information recorded * Plan of Care (advice, pending tests, pending diagnostic tests): Treatment Type Code Text Date Observatio n Data Instruction [id number] Patient Education 2018-04-04 Drink plenty of fluids. Instruction [id number] Patient Education 2018-04-[address] of rest. Instruction [id number] Patient Education 2018-04-04 Follow up with Primary care physician in next 2-5 days. Instruction [id number] Patient Education 2018-04-04 Please take all medications as directed. Finish all antibiotics (unless instructed otherwise), or you may not fully treat the infection and relapse. Instruction [id number] Patient Education 2018-04-04 Tyleno l every 4-6 hours as needed and/or Ibuprofen every 6-8 hours as needed, over the counter for pain or fever. * Visit Diagnosis: URI, ACUTE NOS (J06.9) * Referrals: First Name Last Name NPI# Reason None recorded None recorded None recorded None recorde d HISTORY AND PHYSICAL NOTE * Reason for Visit: Patient Reports: Sore throat [Onset: 2 Day(s); Duration: 2 Day(s)]; Cough [Onset: 2 Day(s); Duration: 2 Day(s)]; Earache [Onset: 2 Day(s); Duration: 2 Day(s)]; Ear drainage [Onset: 2 Day(s); Duration: 2 Day(s)]; Runny nose [Onset: 2 Day(s); Duration: 2 Day(s)]; Nasal congestion [Onset: 2 Day(s); Justyna.: Reports Bilateral]; Nasal drainage [Onset: 2 Day(s); Justyna.: Reports Clear; Location: Reports Bilateral]. Patient Denies: Headache; Dizziness; Chills; Fever; Chronic steroids; Immunocompromised; Anemia; Bleeding; Easy bruising; Rash; Myalgias; Neck pain; Abdominal pain; Nausea; Chest pain/discomfort; SPRAGUE; Murmur; Oral lesions; Sinus pressure; Sinus drainage Dictation: Patient complains of conge stion with cloudy-yellow drainage, dry cough, sore throat, and bilateral ear pain x 2 days. No fever, chills, ear drainage, headache, SOB, wheezing, abdominal pain, nausea, or rash. Dictation: Patient complains of congestion with cloudy-yellow drainage, dry cough, sore throat, and bilateral ear pain x 2 days. No fever, chills, ear drainage, headache, SOB, wheezing, abdominal pain, nausea, or rash. * Family History: Description Relation Diabetes Father Diabetes Paternal Grandfather Diabetes Paternal Grandmother * * Allergies: Allergy Type Effective Datetime (Low) Effective Datetime (High) Substance / Product Reaction Severity Status Drug Allergy [id number]:4 9:23.731 No information recorded Augmentin Numbness Active * Problems: Names Dates Status Bronchitis, not specified as acute or chronic 17111127 active URI, ACUTE NOS 57647413 active Major depressive disorder, single episode, unspe cified No date recorded active Insomnia, unspecified No date recorded active Otitis media, unspecified, right ear 13026399 active URI, ACUTE NOS 66366624 active Vomiting 56038924 active SINUSITIS, ACUTE 83755179 active VIRAL SYNDROME 50700601 active NAUSEA WITH VOMITING 20181228 active Diarrhea, unspecified 20181228 active Acute sinusitis, unspecified 20200323 act daija * Vitals: BMI Body Mass Index Percentile Date Systolic Diastolic Head Circumference Head Circumference Percentile Height Oxygen Concentration Pulse Pulse Oximeter Respiratory Rate Temperature Weight Unakyl-bux-inwugm Percentile 39.5 02 kg/m 2 Unknown 14478 514 139 mmHg 85 mmHg Unknown Unknown 63 [in_i] Unknown 101 /min 97 % 16 /min 97.8 223 [lb_av] Unknown * Review of Systems: * Allergy/Immun* Patient Denies* Chronic steroids * Immunocompromised * Cardio* Patient Denies* Chest pain/discomfort * SPRAGUE * Murmur * Constitutional* Patient Denies* Chills * Fever * ENT/Mouth* Patient Reports* Ear drainage (Onset: 2 Day(s); Duration: 2 Day(s)) * Earache (Onset: 2 Day(s); Duration: 2 Day(s)) * Nasal congestion (Onset: 2 Day(s); Justyna.: Reports Bilateral) * Nasal drainage (Onset: 2 Day(s); Justyna.: Reports Clear; Location: Reports Bilateral) * Patient Denies* Oral lesions * Sinus drainage * Sinus pressure * Patient Reports* Sore throat (Onset: 2 Day(s); Duration: 2 Day(s)) * GI* Patient Denies* Abdominal pain * Nausea * Julian/Lymph* Patient Denies* Anemia * Bleeding * Easy bruising * Musc/Skel* Patient Denies* Myalgias * Neck pain * Neurologic* Patient Denies* Dizziness * Headache * Respiratory* Patient Reports* Cough (Onset: 2 Day(s); Duration: 2 Day(s)) * Skin/Breast* Patient Denies* Rash * Exam: [...] nasal passages noted,Erythematous mucosa both nasal passages noted,Clear nasal discharge noted * Oral pharynx : Normal* Normal : [...] Code Text Date Observatio n Data Instruction [id number] Patient Education 2018-04-04 Drink plenty of fluids. Instruction [id number] Patient Education 2018-04-[address] of rest. Instruction [id number] Patient Education 2018-04-04 Follow up with Primary care physician in next 2-5 days. Instruction [id number] Patient Education 2018-04-04 Please take all medications as directed. Finish all antibiotics (unless instructed otherwise), or you may not fully treat the infection and relapse. Instruction [id number] Patient Education 2018-04-04 Tyleno l every 4-6 hours as needed and/or Ibuprofen every 6-8 hours as needed, over the counter for pain or fever. * Lab Results: Overall Code Overall Text [Code] Result Type (Code) Result Text Result Value Relevant Reference Range Date Lab Name [facility] Zip Code No overall lab code recorded Discharge Patient {DC101} QTY(1) No result type code recorded Discharg e Patient {DC101} QTY(1) No range recorded No lab name recor ded No street recorde d No city recor ded No state record ed No zip code recor ded * Radiology Results: Overall Code Overall Text [Code] Result Type (Code) Result Text Result Value Relevant Reference Range Date Lab Name Street City State Zip Code None recorded None recorded None recorded None recorded None recorded None recorded None recor ded None recor ded None recorde d None recor ded None record ed None recor ded * Visit Diagnosis: URI, ACUTE NOS (J06.9) * Referrals: First Name Last Name NPI# Reason None recorded None recorded None recorded None recorde d PLAN OF TREATMENT Treatment Type Code Text Date Instructio n Data Instruction [id number] Patient Education 2018-04-04 URI, V iral, No Abx (Adult) Instruction [id number] Patient Education 2018-04-04 Follow up 2-5 days (PCP) Instruction [id number] Patient Education 2018-04-04 Drink plenty of fluids. Instruction [id number] Patient Education 2018-04-[address] of rest. Instruction [id number] Patient Education 2018-04-04 Follow up with Primary care physician in next 2-5 days. Instruction [id number] Patient Education 2018-04-04 Please take all medications as directed. Finish all antibiotics (unless instructed otherwise), or you may not fully treat the infection and relapse. Instruction [id number] Patient Education 2018-04-04 Tyleno l every 4-6 hours as needed and/or Ibuprofen every 6-8 hours as needed, over the counter for pain or fever. CHIEF COMPLAINT AND REASON FOR VISIT NARRATIVE Patient Reports: Sore throat [Onset: 2 Day(s); Duration: 2 Day(s)]; Cough [Onset: 2 Day(s); Duration: 2 Day(s)]; Earache [Onset: 2 Day(s); Duration: 2 Day(s)]; Ear drainage [Onset: 2 Day(s); Duration: 2 Day(s)]; Runny nose [Onset: 2 Day(s); Duration: 2 Day(s)]; Nasal congestion [Onset: 2 Day(s); Justyna.: Reports Bilateral]; Nasal drainage [Onset: 2 Day(s); Justyna.: Reports Clear; Location: Reports Bilateral]. Patient Denies: Headache; Dizziness; Chills; Fever; Chronic steroids; Immunocompromised; Anemia; Bleeding; Easy bruising; Rash; Myalgias; Neck pain; Abdominal pain; Nausea; Chest pain/discomfort; SPRAGUE; Murmur; Oral lesions; Sinus pressure; Sinus drainage Dictation: Patient complains of conge stion with cloudy-yellow drainage, dry cough, sore throat, and bilateral ear pain x 2 days. No fever, chills, ear drainage, headache, SOB, wheezing, abdominal pain, nausea, or rash. Dictation: Patient complains of congestion with cloudy-yellow drainage, dry cough, sore throat, and bilateral ear pain x 2 days. No fever, chills, ear drainage, headache, SOB, wheezing, abdominal pain, nausea, or rash.
--- OUTSIDE RECORDS SUMMARY | 2025-02-13 07:45 | XMS_ITS | Referral Summary ---
Author Organization [facility] Address [address] [place] [address] Care Team Providers Care Help Desk Coordinator Name Role Phone Precious Teixeira NP Primary Care Provider [phone] Allergies Active Allergy Reactions Criticality Noted Date Comments Amoxicillin-Pot Clavulanate Rash,Dizziness Medium 10/22 Medications sertraline (ZOLOFT) 50 mg tablet Take 1 tablet (50 mg total) by mouth daily 20 tablet 06/15/20 21 Active benzoyl peroxide 5 % external liquid benzoyl peroxide 5 % topical cleanser APPLY TOPICALLY TO THE AFFECTED AREA TWICE DAILY Active ergocalciferol (VITAMIN D) 50,000 unit capsule ergocalciferol (vitamin D2) 1,250 mcg (50,000 unit) capsule Active famotidine (PEPCID) 40 mg tablet daily Active ferrous sulfate 325 mg (65 mg of elemental iron) tablet FeroSul 325 mg (65 mg iron) tablet TAKE 1 TABLET BY MOUTH TWICE DAILY Active nitrofurantoin monohydrate (MACROBID) 100 mg capsule nitrofurantoin monohydrate/macroc rystals 100 mg capsule Active omeprazole (PriLOSEC) 40 mg capsule omeprazole 40 mg capsule,delayed release TAKE 1 CAPSULE BY MOUTH EVERY DAY IN THE MORNING Active oxyCODONE-aceta minophen (PERCOCET) 5-325 mg per tablet oxycodone-acetamin ophen 5 mg-325 mg tablet TAKE 1 TABLET BY MOUTH EVERY 4-6 HOURS NEEDED FOR PAIN Active Active Problems Problem Noted Date Diagnosed Date Vitamin D deficiency 09/16/2022 Polyp of gallbladder 07/28/2022 Anxiety 07/02/2021 Antinuclear factor positive 04/17/2015 Overview (02/25/2017): Positive FRAN Oral contraceptive pill surveillance 07/18/2014 Episodic mood disorder 11/22/2013 Overview (02/25/2017): Mood disorder Adiposity 11/22/2013 Overview (02/25/2017): Obesity Arthralgia 11/22/2013 Overview (02/25/2017): Arthralgia Well woman exam with routine gynecological exam 06/15/2012 Immunizations Immunization Administration Dates Next Due Influenza, Split 08/16/2013 Social History Tobacco Use Types Packs/Day Years Used Date Smoking Tobacco: Never Smokeless Tobacco: Never Tobacco Cessation:Counseling Given: No Alcohol Use Standard Drinks/Week Comments Yes 0 (1 standard drink = 0.6 oz pur e alcohol) Personal Safety Answer Date Recorded Getting School Help Needed Not on file 12/08 Comments No Sex and Gender Information Value Date Recorded Sex Assigned at Not on file Legal Sex Female 10:29 AM NET 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 APPLICATION DEVELOPER Gender Identity Female 12/08/2023 9:17 AM NET WEB APPLICATION DEVELOPER Sexual Orientation Not on file Last Filed Vital Signs Vital Sign Reading Time Taken Comments Blood Pressure 124/66 02/18/2024 12:01 PM CDT Pulse 102 02/18/2024 12:01 PM CDT Temperature 36.9 C (98.5 F) 02/18/2024 12:01 PM CDT Respiratory Rate 16 02/18/2024 12:01 PM CDT Oxygen Saturation 98% 02/18/2024 12:01 PM CDT Inhaled Oxygen Concentration - - Weight 115.7 kg (255 lb) 02/18/2024 12:01 PM CDT Height 160 cm (5' 3 ) 02/18/2024 12:01 PM CDT Body Mass Index 45.17 02/18/2024 12:01 PM CDT Plan of Treatment Not on file Procedures Procedure Name Priority Date/Time Associated Diagnosis Comments SERUM HEPATITIS C AB Routine 07/25/2015 6:10 PM CDT from Last 3 Months or Most Recently Relevant to Health Maintenance Results * Serum Hepatitis C ab (07/25/2015 6:10 PM CDT) HCV ab Negative Negative HISTORICAL RESULTS Comment:Test performed at [facility], [address] [facility], [place]., [address] Serum 07/25/2015 6:10 PM CDT us Historical Provider LAB BLOOD ORDERABLES Mari umanzor Result HISTORICAL RESULTS from Last 3 Months or Most Recently Relevant to Health Maintenance Insurance [employer] [facility] CHOICE PLUS Care Teams Help Desk Coordinator Relationship Specialty Start Date End Date Precious Teixeira NP [facility] [place]NOTE 2] [address] [id number] PCP - General Cardiovascular Disease 02/18/24
--- OUTSIDE RECORDS SUMMARY | 2025-02-13 07:45 | XMS_ITS | CLINICAL SUMMARY ---
Author Name Erin Shin MANAGER CHANGE Address [address] [place] [address] Phone Organization [facility] Urgent Care [facility] Address [address] [place] [address] Phone Care Team Providers Care Command Post Superintendent Name Role Phone Erin Shin NP Unavailable [phone] Carrol Mcclendon Unavailable [phone] Erin Shin NP Unavailable [phone] EmilPatricia Unavailable No Provider Unavailable Unavailable SOCIAL HISTORY Social History Observation Description Dates Observed Current Smoking Status Never smoked tobacco 2018 114 Sex Female 1990 VITAL SIGNS BMI Body Mass Index Percentile Date Systolic Diastolic Head Circumference Head Circumference Percentile Height Oxygen Concentration Pulse Pulse Oximeter Respiratory Rate Temperature Weight Ghtqoh-out-uuwktd Percentile 43.2 22 kg/m 2 Unknown 84336 115 112 mmHg 70 mmHg Unknown Unknown 63 [in_i] Unknown 92 /min 97 % 17 /min 97.3 244 [lb_av] Unknown ALLERGIES AND ADVERSE REACTIONS Allergy Type Effective Datetime (Low) Effective Datetime (High) Substance / Product Reaction Severity Status Drug Allergy 8912-85-52L89:4 9:23.731 No information recorded Augmentin Numbness Active [...] not specified as acute or chronic 20 451349 active URI, ACUTE NOS 40216965 active Major depressive disorder, single episode, unspe cified No date recorded active Insomnia, unspecified No date recorded active Otitis media, unspecified, right ear 65515022 active URI, ACUTE NOS 77293653 active Vomiting 15311562 active SINUSITIS, ACUTE 60246557 active VIRAL SYNDROME 80941587 active NAUSEA WITH VOMITING 25305951 active Diarrhea, unspecified 26633450 active Acute sinusitis, unspecified 20200323 act daija FAMILY HISTORY Description Relation Diabetes Father Diabetes Paternal Grandfather Diabetes Paternal Grandmother ENCOUNTERS Encounter Performer Location E/M Code E/M Label Date Diagnosi s visit Erin Shin [facility] Ur[facility] [place] [address] No E/M display label [id number] VIRAL SYNDROME LAB RESULTS Overall Code Overall Text [Code] Result Type (Code) Result Text Result Value Relevant Reference Range Date Lab Name [facility] [place] [facility] overall lab code recorded Monospot [[id number]] No result type code recorded Monospot [26349] Negative Normal = Negative [address] [place] [address] [place] [address] 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) Payer name Policy type / Coverage type Policy ID Covered green party ID Insurance type Policy [place]zar / [id number] None Recorded 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 PROCEDURE NOTE Date Name Status Summary Text (N otes) 20181206 Monospot Completed Monospot [46900 ] QTY(1) The mono test today is NEGATIVE None recorded None recorded None recorded None recorde d [id number] Monospot Completed Monospot [53886 ] QTY(1) The mono test today is NEGATIVE PROCEDURES Date Name Status Summary Text (N otes) 20181206 Monospot Completed Monospot [53535 ] QTY(1) The mono test today is NEGATIVE None recorded None recorded None recorded None recorde d [id number] Monospot Completed Monospot [26870 ] QTY(1) The mono test today is NEGATIVE ASSESSMENTS No information recorded LABORATORY REPORT NARRATIVE NOTE No information recorded PATHOLOGY REPORT NARRATIVE NOTE No information recorded IMAGING NARRATIVE Result Code Result Text Date Status Urgency Interp retation None None None None None None DISCHARGE SUMMARY NOTE * Allergies: Allergy Type Effective Datetime (Low) Effective Datetime (High) Substance / Product Reaction Severity Status Drug Allergy 0844-34-42S80:4 9:23.731 No information recorded Augmentin Numbness Active [...] Code Text Date Observatio n Data Instruction [id number] Patient Education 2018-12-06 Drink plenty of fluids. Instruction [id number] Patient Education 2018-12-[address] of rest. Instruction [id number] Patient Education 2018-12-06 Tyleno l every 4-6 hours as needed and/or Ibuprofen every 6-8 hours as needed, over the counter for pain or fever. Instruction [id number] Patient Education 2018-12-06 Follow up with your Primary care physician in next 2-5 days. Instruction [id number] Patient Education 2018-12-06 Don't share glasses or eating utensils. Wash hands frequently. Avoid close respiratory contact. * Visit Diagnosis: VIRAL SYNDROME (B34.9) * Referrals: First Name Last Name NPI# Reason None recorded None recorded None recorded None recorde d HISTORY AND PHYSICAL NOTE * Reason for Visit: Patient Reports: Nasal congestion; Sore throat [Onset: 1 Week(s); Justyna.: Denies White spots, Hurts to swallow, Exposure to strep, Exposure to White Reports URI Symptoms; Assoc. Sx: Denies Temp > 100.4 @ home? Reports Cough, Swollen lymph nodes; Intensity: Mild]; Swollen lymph nodes [Assoc. Sx: Reports Cough; Free text: Patient complains of sore thoat, swollen lymph nodes, fatigue, and dry coughfor one week.]; Body Aches; Fatigue; Cough [Hx of: Denies Asthma Reports Dry; Pattern: Reports Intermittent; Assoc. Sx: Denies Sob, Wheezing, Chest Pain]; Fever [Justyna.: Reports Low grade; Assoc. Sx: Reports Cough, Sore throat]; Malaise; Swollen lymph nodes. * Family History: Description Relation Diabetes Father Diabetes Paternal Grandfather Diabetes Paternal Grandmother * Smoking Status: Never smoked tobacco 20181206 * Allergies: Allergy Type Effective Datetime (Low) Effective Datetime (High) Substance / Product Reaction Severity Status Drug Allergy 4850-51-05G16:4 9:23.731 No information recorded Augmentin Numbness Active * Problems: Names Dates Status Bronchitis, not specified as acute or chronic 17111127 active URI, ACUTE NOS 04614674 active Major depressive disorder, single episode, unspe cified No date recorded active Insomnia, unspecified No date recorded active Otitis media, unspecified, right ear 83095609 active URI, ACUTE NOS 91674812 active Vomiting 48688656 active SINUSITIS, ACUTE 88440186 active VIRAL SYNDROME 46333931 active NAUSEA WITH VOMITING 20181228 active Diarrhea, unspecified 20181228 active Acute sinusitis, unspecified 20200323 act daija * Vitals: BMI Body Mass Index Percentile Date Systolic Diastolic Head Circumference Head Circumference Percentile Height Oxygen Concentration Pulse Pulse Oximeter Respiratory Rate Temperature Weight Aqejax-gyn-iyenop Percentile 43.2 22 kg/m 2 Unknown 64023 115 112 mmHg 70 mmHg Unknown Unknown 63 [in_i] Unknown 92 /min 97 % 17 /min 97.3 244 [lb_av] Unknown * Review of Systems: * Allergy/Immun* Patient Denies* Immunocompromised * Cardio* Patient Denies* Chest pain/discomfort * Constitutional* Patient Reports* Fatigue * Fever (Justyna.: Reports Low grade; Assoc. Sx: Reports Cough; Assoc. Sx: Reports Sore throat) * Malaise * ENT/Mouth* Patient Denies* Ear pain?? * Patient Reports* Nasal congestion * Patient Denies* Sinus drainage * Sinus pressure * Patient Reports* Sore throat (Onset: 1 Week(s); Justyna.: Denies White spots; Justyna.: Denies Hurts to swallow; Hx of: Reports URI Symptoms; Hx of: Denies Exposure to strep; Hx of: Denies Exposure to White; Assoc. Sx: Reports Cough; Assoc. Sx: Denies Temp > 100.4 @ home?; Assoc. Sx: Reports Swollen lymph nodes ; Intensity: Mild) * Eyes* Patient Denies* Eye discharge * Eye redness * GI* Patient Denies* Abdominal pain * Diarrhea * Nausea * Vomiting * Julina/Lymph* Patient Denies* Painful lymph nodes * Patient Reports* Swollen lymph nodes * Musc/Skel* Patient Denies* Myalgias * Neurologic* Patient Denies* Dizziness * Headache * Respiratory* Patient Reports* Cough (Justyna.: Reports Dry??; Hx of: Denies Asthma; Pattern: Reports Intermittent; Assoc. Sx: DeniesSob; Assoc. Sx: Denies Wheezing; Assoc. Sx: Denies Chest Pain) * Patient Denies* Shortness of breath?? * Sputum * Wheezing * Skin/Breast* Patient Denies* Rash * Exam: * General : Normal* Normal : Patient is oriented to time, place and person,Well developed,No acute distress,Affect is normal,Mood is normal,Patient appears non-toxic * Head : Normal* Normal : Normocephalic,Face is grossly normal,No evidence of trauma * Eyes : Normal* Normal : Sclera normal,Lids and lashes are normal,Normal conjunctiva * Ears : Normal* Normal : External ear appears normal. Ear canals and tympanic membranes are normal. * Nose : Normal* Normal : Normal nasal mucosa,Nasal discharge absent,Normal appearing nose,Norrmal nostril(s) noted * Oral pharynx : Normal* Normal : Lips appear normal,Normal tongue,Normal appearing tonsils,Normal oral mucosa, Moist mucus membranes,Normal posterior pharynx * Lymph Nodes : Abnormal* Abnormal : Bilateral cervical lymphadenopathy noted. * Chest/Lungs : Normal* Normal : No signs of respiratory distress,Chest is clear to auscultation bilaterally upon exam,Normal and symmetrical appearing chest on exam * Cardiac : Normal* Normal : Heart normal to auscultation,Normal heart rate noted,Normal rhythm noted * Neurological : Normal* Normal : Normal mentation. Normal sensation and motor function. * Plan of Care (advice, pending tests, pending diagnostic tests): Treatment Type Code Text Date Observatio n Data Instruction [id number] Patient Education 2018-12-06 Drink plenty of fluids. Instruction [id number] Patient Education 2018-12-[address] of rest. Instruction [id number] Patient Education 2018-12-06 Tyleno l every 4-6 hours as needed and/or Ibuprofen every 6-8 hours as needed, over the counter for pain or fever. Instruction [id number] Patient Education 2018-12-06 Follow up with your Primary care physician in next 2-5 days. Instruction [id number] Patient Education 2018-12-06 Don't share glasses or eating utensils. Wash hands frequently. Avoid close respiratory contact. * Lab Results: Overall Code Overall Text [Code] Result Type (Code) Result Text Result Value Relevant Reference Range Date Lab Name [facility] No overall lab code recorded Monospot [[id number]] No result type code recorded Monospot [01353] Negative Normal = Negative [address] [facility] [address] [place] [address] * Radiology Results: Overall Code Overall Text [Code] Result Type (Code) Result Text Result Value Relevant Reference Range Date Lab Name [facility] [place] [facility] None recorded None recorded None recorded None recorded None recorded None recorded None recor ded None recor ded None recorde d None recor ded None record ed None recor ded * Visit Diagnosis: VIRAL SYNDROME (B34.9) * Referrals: First Name Last Name NPI# Reason None recorded None recorded None recorded None recorde d PLAN OF TREATMENT Treatment Type Code Text Date Instructio n Data Instruction [id number] Patient Education 2018-12-06 VIRAL SYNDROME (Adult) Instruction [id number] Patient Education 2018-12-06 Drink plenty of fluids. Instruction [id number] Patient Education 2018-12-[address] of rest. Instruction [id number] Patient Education 2018-12-06 Tyleno l every 4-6 hours as needed and/or Ibuprofen every 6-8 hours as needed, over the counter for pain or fever. Instruction [id number] Patient Education 2018-12-06 Follow up with your Primary care physician in next 2-5 days. Instruction [id number] Patient Education 2018-12-06 Don't share glasses or eating utensils. Wash hands frequently. Avoid close respiratory contact. CHIEF COMPLAINT AND REASON FOR VISIT NARRATIVE Patient Reports: Nasal congestion; Sore throat [Onset: 1 Week(s); Justyna.: Denies White spots, Hurts to swallow, Exposure to strep, Exposure to White Reports URI Symptoms; Assoc. Sx: Denies Temp > 100.4 @ home? Reports Cough, Swollen lymph nodes; Intensity: Mild]; Swollen lymph nodes [Assoc. Sx: Reports Cough; Free text: Patient complains of sore thoat, swollen lymph nodes, fatigue, and dry coughfor one week.]; Body Aches; Fatigue; Cough [Hx of: Denies Asthma Reports Dry; Pattern: Reports Intermittent; Assoc. Sx: Denies Sob, Wheezing, Chest Pain]; Fever [Justyna.: Reports Low grade; Assoc. Sx: Reports Cough, Sore throat]; Malaise; Swollen lymph nodes.
--- OUTSIDE RECORDS SUMMARY | 2025-02-13 07:45 | XMS_ITS | Clinical Summary ---
Author Organization [facility] Address [address] [place] [address] Care Team Providers Care Field Marketing Associate Name Role Phone Precious Teixeira NP Primary Care Provider [phone] Allergies Active Allergy Reactions Criticality Noted Date [...] Administration Dates Next Due Influenza, Split 08/16/2013 Medical History Medical History Date Comments Hx Other Medical 11/22/2013 Obesity; Commen ts: ECS 04/26/2015 - Anxiety Panic attacks Family History Medical History Relation Name Comments Rheum arthritis Maternal Grandmother Rheu matoid arthritis; Rheum arthritis Mother's Sister 1 Rheumat oid arthritis; Depression Mother's Sister 2 Depression ; Other Mother's Sister 3 Celiac dis ease; Relation Name Status Comments Maternal Grandmother Mother's Sister 1 Mother's Sister 2 Mother's Sister 3 Social History Tobacco Use Types Packs/Day Years [...] on file Legal Sex 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 Gender Identity Female 12/08/2023 9:17 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 Sexual Orientation Not on file Obstetrics History Last Filed Vital Signs Vital Sign Reading [...] 02/18/2024 12:01 PM CDT Plan of Treatment Health Maintenance Due Date Last Done Comments Cervical Cancer Screening 1992 Depression Screening 1992 DTaP/Tdap/Td Vaccine (1 - Tdap) 2003 Varicella Vaccines (1 of 2 - 13+ 2-dose series) 2005 Hepatitis B Screening 2010 Regular Well Visit/Exam 18-64 2010 Covid-19 Vaccine ( season) 2024 09/08/2021, 08/23/2021, 08/12/2021, Additional history exists Influenza Vaccine (#1) 2024 09/03/2021, 2012 Hepatitis C Screening Completed 07/25/2015 HPV Vaccines Aged Out No longer eligi ble based on patient's age to complete this topic Pneumococcal vaccine <65 Aged Out No longer eligible based on patient's age to complete this topic Procedures Procedure Name Priority Date/Time Associated Diagnosis Comments SERUM HEPATITIS C AB Routine 07/25/2015 6:10 PM CDT from Last 3 Months or Most Recently Relevant to Health Maintenance Results * Serum Hepatitis C ab (07/25/2015 6:10 PM CDT) [facility] HCV ab Negative Negative HISTORICAL RESULTS Comment:Test performed at [facility], [address] [place] [address]., [id number] Serum 07/25/2015 6:10 PM CDT us Historical Provider LAB BLOOD ORDERABLES Mari umanzor Result HISTORICAL RESULTS from Last 3 Months or Most Recently Relevant to Health Maintenance Insurance [facility]/PPO Address: [address] [address] [place] [address] [facility] CHOICE [facility] H[facility]/PPO Address: [address] [address] [place] [address] Care Teams Field Marketing Associate Relationship Specialty Start Date End Date Precious Teixeira, SUPERVISOR [employer] [facility] [facility] [address] [place] [address] [place] [address] PCP - General Cardiovascular Disease 02/18/24
[2025-03-07 09:07] VITALS: BMI 46.0
--- NOTE | 2025-03-07 09:07 | P.SLEEP_ITS ---
Sleep Study - Home Unattended Date of Study: 02/13/25 Ordering Provider: Cary Han NP Interpreting Provider: Hillary Herzog DO Home Sleep Study Type: Watch PAT Height: 1.6 m Weight: 117.934 kg Body Mass Index: 46.0 Neck Circumference (inches): 15.5 Ermine: 11 Reason for Sleep Study Excessive daytime sleepiness Sleep History The patient is a 34-year-old female that had a sleep study ordered by her prim formerly [facility] for sleep apnea. The patient admits to excessive daytime sleepiness, trouble maintaining sleep and interruptions in breathing asleep. The patient denies snoring loudly. She does choke or gasp at night. She does have trouble breathing on her back. She does have morning headaches. She does have a dry or sore mouth /throat in the morning. She does have nocturnal heartburn. She urinates twice she does have difficulty falling asleep. She does have difficulty returning to sleep if she wakes up throughout the night. She denies any hypnotic or sedative use. She does feel anxious about sleep. She does feel tired or sleepy during the day. She does feel tired in the morning. She does have the urge to fall asleep during the day. She denies feeling drowsy while driving. She denies sleep paralysis, cataplexy and hypnagogic/ hypnopompic hallucinations. She does clench or grind her teeth. She does kick or jerk her legs excessively. She denies having a restless feeling in her legs. She goes to bed at 9:30 p.m. on work days and at 11:00 p.m. on her days off. It takes her 45 minutes to fall asleep on work days and 30 minutes on her days off. She gets 5 hours of sleep on work days and 6 hours on her days off her sleep is a little more restorative on her days off. She denies taking any planned naps. He denies dream behavior. She denies sleep walking. She consumes 1-2 cups of caffeinated beverage per day. She denies tobacco and alcohol use. She exercises 1-[address] [facility] Past Medical History Medical History UTI (urinary tract infection) Insomnia GERD (gastroesophageal reflux disease) Dizziness Anxiety and depression History of miscarriage, currently Surgical History Surgical History History of delivery Hx of cholecystectomy (~08/2022) History of tonsillectomy and adenoidectomy (~1995) Family History Family History Mother Anxiety Cyst of ovary Grandparent Diabetes mellitus paternal grandmother Heart disease paternal grandfather paternal grandmother maternal grandmother maternal grandfather Cerebrovascular accident maternal grandfather Other Diabetes mellitus paternal uncles x3 Social History Social History Social History: Caffeine-coffee daily Smoking status: Never smoker Alcohol intake: never Substance use: former Substance use type: marijuana Last use: 12/10/2022 Do You Feel Safe in your Home?: Yes Lack of Transportation: No Lack of Food: Never True Current Housing: I Have Housing Concerned About Future Housing: No Difficulty Paying Gas/Electric Bills: No Difficulty Paying for Meds: No Currently Unemployed: No Education: Bachelor's Degree Difficulty w/ Childcare or Family Care: No Living arrangements: other Additional living arrangements comments: Occupation/Education: occupation 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 Gender identity (if verbalized by the patient): Female Sexual Orientation (if Verbalized by the Patient): Straight or Heterosexual Spiritual care concerns: No Medications Home Medications ?Medication ?Instructions ?Recorded ?Confirmed ?Type sertraline 100 mg tablet (Zoloft) 100 mg PO DAILY #90 tabs 09/29/23 02/02/25 Rx polysaccharide iron complex 150 mg 150 mg PO DAILY 01/05/24 02/02/25 History iron capsule (Ferrex) drospirenone (contraceptive) 4 mg 4 mg PO DAILY #84 tabs 01/02/25 02/02/25 Rx (28) tablet (Slynd) Sleep Procedure The sleep study was completed using [employer] a technically adequate device with seven channels: peripheral arterial tone, actigraphy, body position, snore, respiratory movement, pulse oximetry, sleep staging, and heart rate. Prior to using the device, the patient received verbal and written instructions for its application and was provided with the help desk phone number for additional telephonic instruction with 24-hour availability of qualified personnel to answer questions. The study was scored using CMS guidelines. Sleep Architecture The total recording time is 9 hrs, 21 min. The total sleep time is 7 hrs, 53 min. Sleep latency is 6 minutes. REM latency is 125 minutes. The patient had 17 episodes of waking. Sleep architecture shows 20.8% deep sleep, 60.7% light sleep, and (as % Total Sleep Time) showed NREM (Light 60.7%; Deep 20.8%), and a 18.5% stage REM. The patient spent 0.0% of total sleep time in the supine position. Sleep efficiency was 84.31. Respiratory Analysis The overall AHI (pAHI 3%:) is 1.3. The central AHI was unable to be calculated . The AHI was 0.8 in NREM and 3.5 in REM sleep. The AHI was N/A in Supine and N/A in Non-supine sleep. Percent of Jorge Nelson respirations was unable to be calculated. Oximetry Data The oxygen desaturation index (ANITHA 4%:) is 0.8. The mean saturation is 96%, and the lowest saturation is 87%. Time spent with saturation < 88% is 0.1 minutes. Snoring Profile Snoring average intensity is 40 dB. The patient snored above 45 decibels for 0.0 minutes, 0.0% of sleep time. Cardiac Profile The average pulse rate is 77 beats per minutes. The lowest pulse rate is 62 bpm. The highest pulse rate reported is 118 bpm. Atrial fibrillation was not detected. Premature beats occur <0.1 per minute. Assessment and Plan Assessment and Plan (1) Excessive daytime sleepiness: Code(s): G47.19 - Other hypersomnia Status: Acute Assessment and Plan: The patient had an overall AHI of 0.6 with desaturation down to 87%. This is not consistent with sleep disordered breathing. Due to the patient's excessive daytime sleepiness, further evaluation is warranted. I recommend the patient have a split study with the use of a hypnotic to ensure we obtain enough sleep data. Data The data obtained during this sleep study is adequate for interpretation. Certification This sleep study has been reviewed by a board certified sleep medicine physician.
== END 2025-02-14 12:32 | disposition home or self-care (01) ==
LOC: ANHCSM 07:42
PROVIDERS: PCP Internal Medicine; Visit Provider Nurse Practitioner
DX: G47.19 Other hypersomnia (principal); G47.9 Sleep disorder, unspecified
CPT/HCPCS: 95800

== ENCOUNTER 2025-04-19 08:44 | Outpatient (CLI) | payer OTHER, SELFPAY ==
--- OUTSIDE RECORDS SUMMARY | 2025-04-19 08:50 | XMS_ITS | Clinical Summary ---
Author Organization [facility] Address [address] [place] [address] Care Team Providers Care Biofuels Plant Superintendent Name Role Phone Precious Teixeira NP Primary Care Provider [phone] Allergies Active Allergy Reactions Criticality Noted Date [...] woman exam with routine gynecological exam 06/15/2012 Encounters Date Type Department Care Team Description 02/28/2025 12:00 PM CDT Office Visit [facility]ient Care at [address] [address] Evelin Jordan, AMNA Viral URI with cough (Primary Dx); Sore throat from Last 3 Months Immunizations Immunization Administration Dates Next Due Influenza, [...] Never Smokeless Tobacco: Never Tobacco Cessation:Counseling Given: Not Answered Alcohol Use Standard Drinks/Week Comments Yes 0 (1 standard drink = 0.6 oz pur e alcohol) Comments No Sex and Gender Information Value Date Recorded Sex Assigned at Not on file Legal Sex Female 10:29 AM 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 Gender Identity Female 12/08/2023 9:17 AM 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 Sexual Orientation Not on file Obstetrics History Last Filed Vital Signs Vital Sign Reading Time Taken Comments Blood Pressure 120/78 02/28/2025 12:04 PM CDT Pulse 99 02/28/2025 12:04 PM CDT Temperature 37.8 C (100.1 F) 02/28/2025 12:04 PM CDT Respiratory Rate 16 02/28/2025 12:04 PM CDT Oxygen Saturation 98% 02/28/2025 12:04 PM CDT Inhaled Oxygen Concentration - - Weight 117.9 kg (260 lb) 02/28/2025 12:04 PM CDT Height 160 cm (5' 3) 02/28/2025 12:04 PM CDT Body Mass Index 46.06 02/28/2025 12:04 PM CDT Plan of Treatment Health Maintenance Due Date Last Done Comments Cervical Cancer Screening 1992 Depression Screening 1992 DTaP/Tdap/Td Vaccine (1 - Tdap) 2003 Varicella Vaccines (1 of 2 - 13+ 2-dose series) 2005 Hepatitis B Screening 2010 Regular Well Visit/Exam 18-64 2010 Covid-19 Vaccine ( season) 2024 09/08/2021, 08/23/2021, 08/12/2021, Additional history exists Influenza Vaccine (Season Ended) 2025 09/03/2021, 08/16/2013 Hepatitis C Screening Completed 07/25/2015 HPV Vaccines Aged Out No longer eligi ble based on patient's age to complete this topic Pneumococcal vaccine <65 Aged Out No longer eligible based on patient's age to complete this topic Procedures Procedure Name Priority Date/Time Associated Diagnosis Comments POC INFLUENZA A/B, COVID-19 ANTIGEN Routine 02/28/2025 12:17 PM CDT Sore throat POCT RAPID STREP Routine 02/28/2025 12:1 1 PM CDT Sore throat SERUM HEPATITIS C AB Routine 07/25/2015 6:10 PM CDT from Last 3 Months or Most Recently Relevant to Health Maintenance Results * POC Influenza A/B, COVID-19 antigen (02/28/2025 12:17 PM CDT) Influenza A Ag, POC Negative Negative [facility] Influenza B Ag, POC Negative Negative [facility] COVID-19 Ag POC Presumptive Negative Presumptive Negative, Invalid [facility] [place] Nasal 02/28/2025 12:1 7 PM CDT Evelin Jordan OUTSIDE SALES MANAGER POINT OF CARE TEST OR DERABLES Final Result Performing Organization Address City/[facility] de Phone Number [facility] [address] [facility] [address] [place] [phone], [facility] * POCT rapid strep A (02/28/2025 12:11 PM CDT) Rapid Strep A, POC Negative Negative Swab 02/28/2025 12:1 1 PM CDT Evelin Jordan OUTSIDE SALES MANAGER POINT OF CARE TEST OR DERABLES Final Result * Serum Hepatitis C ab (07/25/2015 6:10 PM CDT) HCV ab Negative Negative HISTORICAL RESULTS Comment:Test performed at [facility], [address] [place] [address]., [id number] Serum 07/25/2015 6:10 PM CDT Historical Provider LAB BLOOD ORDERABLES Mari l Result Performing Organization Address City/[facility] Co de Phone Number HISTORICAL RESULTS from Last 3 Months or Most Recently Relevant to Health Maintenance Insurance [employer] [facility] Care Teams Biofuels Plant Superintendent Relationship Specialty Start Date End Date Precious Teixeira NP [address] [place] [address] [address] PCP - General Cardiovascular Disease 02/18/24
--- OUTSIDE RECORDS SUMMARY | 2025-04-19 08:50 | XMS_ITS | Referral Summary ---
Author Organization [facility] Address [address] [place] [address] Care Team Providers Care Radial Drill Operator For Plastic Name Role Phone Precious Teixeira NP Primary Care Provider Encounters Date Type Department Care Team Description 02/28/2025 12:00 PM CDT Office Visit [facility] Care at [address] [place] [address] Evelin Jordan NP Viral URI with cough (Primary Dx); Sore throat from Last 3 Months Allergies Active Allergy Reactions Criticality Noted Date [...] on file Legal Sex Female 10:29 AM CLOTHES MODEL Gender Identity Female 12/08/2023 9:17 AM CLOTHES MODEL Sexual Orientation Not on file Last Filed [...] 02/28/2025 12:04 PM CDT Plan of Treatment Not on [...] A/B, COVID-19 antigen (02/28/2025 12:17 PM CDT) [facility] Influenza A Ag, POC Negative Negative [facility] [place] Influenza B Ag, POC Negative Negative [facility] COVID-19 Ag POC Presumptive Negative Presumptive Negative, Invalid [facility] Nasal 02/28/2025 12:1 7 PM CDT Evelin Jordan SAMPLE TESTER GRINDER POINT OF CARE TEST OR DERABLES Final Result [address] [address], [facility] * POCT rapid strep A (02/28/2025 12:11 PM CDT) Pathologist [facility] Rapid Strep A, POC Negative Negative Swab 02/28/2025 12:1 1 PM CDT Evelin Jordan SAMPLE TESTER GRINDER POINT OF CARE TEST OR DERABLES Final Result * Serum Hepatitis C ab (07/25/2015 6:10 PM CDT) HCV ab Negative Negative HISTORICAL RESULTS Comment:Test performed at [facility], [address] [place] [address], [place]., [address] Serum 07/25/2015 6:10 PM CDT us Historical Provider LAB BLOOD ORDERABLES Mari umanzor Result HISTORICAL RESULTS from Last 3 Months or Most Recently Relevant to Health Maintenance Insurance [employer] [facility] Care Teams Radial Drill Operator For Plastic Relationship Specialty Start Date End Date Precious Teixeira NP [facility] [address] [address] PCP - General Cardiovascular Disease 02/18/24
--- OUTSIDE RECORDS SUMMARY | 2025-04-19 08:50 | XMS_ITS | Clinical Summary ---
Author Organization [facility] Address [address] [place] [phone] Phone Care Team Providers Care Soft Sugar Supervisor Name Role Phone Unavailable Primary Care Provider Unavailabl e Social History Tobacco Use Types Packs/Day Years Used Date Smoking Tobacco: Never Assessed Comments Unknown Sex and Gender Information Value Date Recorded Sex Assigned at Not on file Legal Sex Female 1:08 PM CDT Gender Identity Not on file Sexual Orientation Not on file Plan of Treatment Upcoming Encounters Date Type Department Care Team (Late st Contact Info) Description 05/28/2025 8:40 AM CDT [facility] - [facility] [address] [place] [address] Georgie Emery, DO [address] [address] Health Maintenance Due Date Last Done Comments Hepatitis C Virus (HCV) Screening 1992 Hepatitis B Immunization (1 of 3 - 19+ 3-dose series) 2011 Pap Smear 2013 Cervical Cancer Screening (CCS) 2022 HPV/Cotest 2022 SARS-COV-2 Immunization ( season) 2024 09/08/2021, 08/23/2021, 08/12/2021, Additional history exists Respiratory Syncytial Virus (RSV) Immunization (Adult) (1 - 1-dose 75+ series) 2067 TdaP Immunization Completed 06/02/2023 Influenza Immunization Completed , 09/03/2023, 09/03/2021 Meningococcal Immunization (ACWY) Aged Out No longer eligible based on patient's age to complete this topic Pneumococcal Immunization Combined Aged Out No longer eligible based on patient's age to complete this topic Rotavirus Immunization Aged Out No lo nger eligible based on patient's age to complete this topic
--- OUTSIDE RECORDS SUMMARY | 2025-04-19 08:51 | XMS_ITS | Clinical Summary ---
Author Organization [facility] [employer] Address [address] [facility] [place] [address] Care Team Providers Care Welding Robot Operator Name Role Phone Unavailable Primary Care Provider Unavailabl e Source Comments [facility] [employer],non-owned Affiliates and Associated Physician Practices is amultiple site organization consisting of ambulatory clinics and hospital sitesin [place], [place], [place] and [place]. This disclosure is being madepursuant to the Care Everywhere program and may not contain all information available regarding this patient. Last updated 18.[employer] Allergies No known active allergies Medications * This document contains information received from the source organization and may not represent a complete record from that organization. * Be aware that medications may not be up to date on this document. Alwaysverify current medications with the patient. insulin glargine (Lantus/Semglee ) 100 units/mL penIndications: GDM on insulin Inject 16 (sixteen) Units to 40 (forty) Units subcutaneously at bedtime 07/20/23 Pt taking 16 units AM/ 24units PM Reasons: GDM on insulin Active Vit-DSS-Fe Fum-FA ( vitamin with iron) tabletIndicatio ns: Take 1 (one) tablet by mouth once daily Reasons: Active Glucagon (Baqsimi One Pack) 3 MG/DOSE POWDIndications :Hypoglycemia [place] 1 spray into the nose 1 (one) time for 1 dose One dose as needed intranasal for emergency use, if unable to treat low blood sugar by mouth with food Reasons: Disorder with Low Blood Sugar 1 Each 1 06/30/20 Active blood glucose test stripIndication s:Morbid obesity with BMI of 45.0-49.9, adult (HCC),Insulin controlled gestational diabetes mellitus (GDM) in third trimester ([facility]) Use 1 (one) strip as directed Check fasting glucose, and one hour after each meal. 100 strip 11 06/30/20 Active ferrous sulfate 325 (65 FE) MG tablet Take 1 (one) tablet by mouth 2 times daily with morning and evening meal Active hydrOXYzine HCl (Atarax) 10 MG tabletIndicatio ns:Insomnia Take 1 (one) tablet by mouth at bedtime Reasons: Trouble Sleeping Active insulin lispro (HumaLOG;ADMelo g) 100 UNIT/ML pen Inject 6 (six) Units to 20 (twenty) Units subcutaneously as directed for 30 days Start with 2 units before breakfast, lunch and dinner. Increase as directed. 15 mL 1 07/21/20 Active Insulin Pen Needle 32G X 4 MM MISCIndications :Insulin controlled gestational diabetes mellitus (GDM) in third trimester ([facility]) Use 1 Each 5 times daily 100 Each 2 07/21/20 Active Social History Tobacco Use Types Packs/Day Years Used Date Smoking Tobacco: Never Assessed Tobacco Cessation:Counseling Given: Not Answered Comments No Sex and Gender Information Value Date Recorded Sex Assigned at Not on file Legal Sex Female 8:06 AM OFFICE CLEANER Gender Identity Not on file Sexual Orientation [...] 11:50 AM CDT Height 160 cm (5' 3) 06/30/2023 4:52 PM CDT Body Mass Index 49.07 06/30/2023 4:52 PM CDT Plan of Treatment Health Maintenance Due Date Last Done Comments PAP SMEAR 1992 HIV SCREENING 2007 HEPATITIS C SCREENING 11/24/2010 DTAP/TDAP/TD VACCINES (1 - Tdap) 2011 HEPATITIS B VACCINE (1 of 3 - 19+ 3-dose series) 2011 COVID-19 VACCINE ( season) 2024 09/08/2021, 08/23/2021, 08/12/2021, Additional history exists DEPRESSION SCREENING 11/22/2024 INFLUENZA VACCINE (Season Ended) 2025 09/03/2021, 10/06/2019 ZOSTER VACCINE (1 of 2) 2042 HIB [...] on patient's age to complete this topic Insurance [facility]
--- NOTE | 2025-05-11 11:48 | WPDSLEEPSTUD ---
Sleep Study Date of Study: 04/19/25 Ordering Provider: Pennie Linares NP Interpreting Physician: Hillary Herzog DO Sleep Study Type: Polysomnogram Height: 1.6 m Weight: 113.398 kg Body Mass Index: 44.2 Neck Circumference (inches): 15 [place]: 11 Reason for Sleep Study Excessive daytime sleepiness Sleep History The patient is a 34-year-old female that had a sleep study ordered by her primary care for sleep apnea. The patient admits to excessive daytime sleepiness, trouble maintaining sleep and interruptions in breathing asleep. The patient denies snoring loudly. She does choke or gasp at night. She does have trouble breathing on her back. She does have morning headaches. She does have a dry or sore mouth /throat in the morning. She does have nocturnal heartburn. She urinates twice she does have difficulty falling asleep. She does have difficulty returning to sleep if she wakes up throughout the night. She denies any hypnotic or sedative use. She does feel anxious about sleep. She does feel tired or sleepy during the day. She does feel tired in the morning. She does have the urge to fall asleep during the day. She denies feeling drowsy while driving. She denies sleep paralysis, cataplexy and hypnagogic/ hypnopompic hallucinations. She does clench or grind her teeth. She does kick or jerk her legs excessively. She denies having a restless feeling in her legs. She goes to bed at 9:30 p.m. on work days and at 11:00 p.m. on her days off. It takes her 45 minutes to fall asleep on work days and 30 minutes on her days off. She gets 5 hours of sleep on work days and 6 hours on her days off her sleep is a little more restorative on her days off. She denies taking any planned naps. He denies dream behavior. She denies sleep walking. She consumes 1-2 cups of caffeinated beverage per day. She denies tobacco and alcohol use. She exercises 1-2 nights per week. [facility] Past Medical History Medical History Rash and nonspecific skin eruption Encounter to establish care Encounter for wellness examination Menorrhagia Contraception management , delivered LGA (large for gestational age) fetus affecting management of mother UTI (urinary tract infection) Insomnia GERD (gastroesophageal reflux disease) Dizziness Anxiety and depression History of miscarriage, currently Surgical History Surgical History S/P primary low transverse History of delivery Hx of cholecystectomy (~08/2022) History of tonsillectomy and adenoidectomy (~1995) Family History Family History Mother Anxiety Cyst of ovary Grandparent Diabetes mellitus paternal grandmother Heart disease paternal grandfather paternal grandmother maternal grandmother maternal grandfather Cerebrovascular accident maternal grandfather Other Diabetes mellitus paternal uncles x3 Social History Social History Social History: Caffeine-coffee daily Smoking status: Never smoker Alcohol intake: never Substance use: former Substance use type: marijuana Last use: 12/10/2022 Do You Feel Safe in your Home?: Yes Lack of Transportation: No Lack of Food: Never True Current Housing: I Have Housing Concerned About Future Housing: No Difficulty Paying Gas/Electric Bills: No Difficulty Paying for Meds: No Currently Unemployed: No Education: Bachelor's Degree Difficulty w/ Childcare or Family Care: No Living arrangements: other Additional living arrangements comments: Occupation/Education: occupation 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 Gender identity (if verbalized by the patient): Female Sexual Orientation (if Verbalized by the Patient): Straight or Heterosexual Spiritual care concerns: No Medications Home Medications ?Medication ?Instructions ?Recorded ?Confirmed ?Type polysaccharide iron complex 150 mg 150 mg PO DAILY 01/05/24 05/02/25 History iron capsule (Ferrex) drospirenone (contraceptive) 4 mg 4 mg PO DAILY #84 tabs 01/02/25 05/02/25 Rx (28) tablet (Slynd) sertraline 100 mg tablet (Zoloft) 100 mg PO DAILY #90 tabs 03/22/25 05/02/25 Rx trazodone 50 mg tablet 50 mg PO QHS PRN insomnia #30 tabs 05/02/25 05/02/25 Rx Sleep Procedure A full night polysomnogram using the OTI [employer] multi-channel system recorded the standard physiologic parameters including EEG, EOG, submentalis EMG, anterior tibialis EMG, EKG, body position, nasal and oral airflow using nasal pressure sensor and thermistor.? Respiratory parameters of chest and abdominal movements were recorded with Respiratory Inductance Plethysmography belts. Oxygen saturation was recorded by pulse oximetry. Video monitoring was also performed. Sleep stages, periodic limb movements, and EEG arousals were scored in 30 second epochs according to the criteria of the AASM Scoring Manual. The Apnea-Hypopnea Index was calculated using [facility] guidelines for definition of hypopnea with 4% O2 desaturations while scoring respiratory events. Sleep Architecture The total recording time was 534.6 minutes.? The total sleep time was 422.0 minutes. Sleep latency was 17.1 minutes. REM latency was 238.0 minutes. Sleep efficiency was 78.9%. The patient had 55 awakenings for an awakening index of 7.8. Wake after sleep onset time was 95.5 minutes. The patient spent 59.0 minutes, 14.0% of total sleep time in Stage N1. The patient spent 237.0 minutes, 56.2% in Stage N2. The patient spent 43.5 minutes, 10.3% in Stage N3. The patient spent 82.5 minutes, 19.5% in Stage REM sleep. Respiratory Analysis The patient had 8 hypopneas for an overall Apnea Hypopnea Index of 1.1. The REM Apnea Hypopnea Index was 8.0. The NREM Apnea Hypopnea Index was 0.7. The patient had a Central Apnea Hypopnea Index of 0. There was no evidence of Jorge-Nelson Respirations. Arousals There were 249 total arousals for an arousal index of 35.4. There were 212 spontaneous arousals for an index of 30.1. There were 3 arousals due to respiratory events for an index of 0.4. There were 4 arousals due to periodic limb movements for an index of 0.6.? There were 18 arousals due to isolated limb movements for an index of 2.6. Periodic Limb Movements The patient had 37 isolated limb movements with an index of 5.3. The patient had 4 periodic limb movements with an index of 0.6. Patient had a total of 41 limb movements with a total limb movement index of 5.8. Oximetry Data The patient had an average oxygen saturation of 94.5% in sleep with a minimum oxygen saturation of 92.0% and a maximum oxygen saturation of 98.0%. The patient had 7 oxygen desaturations that were 4% or greater resulting in an Oxygen Desaturation Index of 1.0.? The patient spent 0 minutes of total sleep time with an oxygen saturation below 88%. Snoring Profile Mild snoring was present intermittently throughout the study. Cardiac Profile The EKG showed normal sinus rhythm. No arrhythmias or premature beats were seen. The patient had an average pulse rate of 83.1 bpm with a minimum pulse of rate of 68.0 bpm and a maximum pulse rate of 122.0 bpm.? 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 No signs of seizure activity seen. Assessment and Plan Assessment and Plan (1) Excessive daytime sleepiness: Code(s): G47.19 - Other hypersomnia Status: Acute Assessment and Plan: The patient had an overall AHI of 1.1 with desaturation down to 92%. This is not consistent with sleep disordered breathing. 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 Alpha intrusion, also known as alpha-delta sleep, is an EEG finding where alpha waves are present during NREM sleep. Alpha waves are typically present in wake. While alpha intrusion can be seen in a small subset of healthy individuals, it is often found in patients with depression, fibromyalgia, chronic pain and other sleep disorders. Clinically, alpha intrusion presents as non-restorative sleep. Treatment of alpha intrusion is directed towards the underlying cause. Data The data obtained during this sleep study is adequate for interpretation. Certification This sleep study has been reviewed by a board certified sleep medicine physician.
[2025-05-14 12:51] VITALS: BMI 44.2
== END 2025-04-20 06:52 | disposition home or self-care (01) ==
LOC: ANHCSM 08:44
PROVIDERS: PCP Internal Medicine; Visit Provider Nurse Practitioner
DX: G47.19 Other hypersomnia (principal)
CPT/HCPCS: 95810